=== PATIENT | male | born 1955 | race Hispanic/Latino ===

== ENCOUNTER 2017-11-23 14:05 | Inpatient (IN) | payer MEDICARE, OTHER ==
[2017-11-23 15:14] LABS: Basophils % (Auto) 0.2 % (0.0-1.8); Eosinophils % (Auto) 0.2 % (0.0-4.3); Hematocrit 34.5 % (35.5-45.6); Hemoglobin 11.7 gm/dl (11.8-15.2); Lymphocytes # (Auto) 1.3 K/mm3 (1.2-5.4); Lymphocytes % (Auto) 7.2 % (13.4-35.0); Mean Corpuscular HGB Conc 34 % (32-34); Mean Corpuscular Hemoglobin 31 pg (28-32); Mean Corpuscular Volume 91 fl (84-94); Monocytes % (Auto) 5.5 % (0.0-7.3); Platelet Count 384 K/mm3 (140-440); Red Blood Count 3.81 M/mm3 (3.65-5.03); Red Cell Distribution Width 13.8 % (13.2-15.2)
[2017-11-23 15:27] LABS: BUN/Creatinine Ratio 13; Blood Urea Nitrogen 9 mg/dL (9-20); Calcium 8.7 mg/dL (8.4-10.2); Hemolysis Index 99
[2017-11-23] MEDS ORDERED: NACL 0.9% 500 ML 500 ML IV ONE (16:44)
[2017-11-23] MEDS ORDERED: DUONEB *Not for PRN Use IH ONE (16:44)
[2017-11-23] MEDS ORDERED: TORADOL IV ONE (16:54)
--- NOTE | 2017-11-23 16:56 | Emergency Department Report ---
ED Extremity Problem HPI - General Chief complaint: Extremity Injury, Lower Stated complaint: RT FOOT SWOLLEN Time Seen by Provider: 11/23/17 16:26 Source: patient, EMS Mode of arrival: Stretcher Limitations: No Limitations - History of Present Illness Initial comments: 62-year-old male with a past medical history of type 2 diabetes, peripheral neuropathy, hypertension, dyslipidemia, CAD with stent placement, CVA with residual left-sided deficit, and methamphetamine abuse presents to the hospital complains of right foot infection 1 month. Patient has been back and forth to the [place] for treatment. He states he has been on antibiotics and is supposed to receive additional antibiotics but he has not. He states they're planning to possibly amputate his toe. Patient denies fever. Pain is mild to moderate. Patient states he quit smoking 4 months ago but does have COPD. - Related Data Home Medications Medication Instructions Recorded Confirmed Last Taken Multivitamin with Minerals [One 1 tab PO QDAY 12/11/13 12/11/13 12/10/13 08:00 Daily] 1 tab Previous Rx's Medication Instructions Recorded Last Taken Type Aspirin [Aspirin TAB] 325 mg PO QDAY #30 tablet 05/06/16 Unknown Rx Carvedilol [Coreg] 3.125 mg PO BID #60 tablet 05/06/16 Unknown Rx Celecoxib [celeBREX] 100 mg PO BID #60 capsule 05/06/16 Unknown Rx Clopidogrel [Plavix] 75 mg PO QDAY #30 tablet 05/06/16 Unknown Rx HYDROcodone/APAP 5-325 [[place] 1 each PO Q6H PRN #30 tablet 05/06/16 Unknown Rx 5-325 mg TAB] Insulin NPH/Regular [NovoLIN 70/30] 20 units SUB-Q BID #100 units 05/06/16 Unknown Rx Venlafaxine Xr [Effexor XR] 150 mg PO QDAY #30 capsule 05/06/16 Unknown Rx metFORMIN [Glucophage] 1,000 mg PO BID #60 tablet 05/06/16 Unknown Rx oxyCODONE ER [OxyCONTIN ER TAB] 10 mg PO Q12HR #14 tablet 05/06/16 Unknown Rx Allergies Allergy/AdvReac Type Severity Reaction Status Date / Time No Known Allergies Allergy Unverified 12/11/13 07:25 ED Review of Systems ROS: Stated complaint: RT FOOT SWOLLEN Other details as noted in HPI Comment: All other systems reviewed and negative Other: Constitutional: No fevers chills Eyes: No eye pain visual changes or discharge ENT: No ear pain or throat pain Neck: Denies pain Respiratory: Denies cough wheezing shortness of breath Cardiovascular: Denies chest pain, palpitations, syncope GI: Denies abdominal pain, nausea, vomiting, diarrhea : Denies dysuria Musculoskeletal: As per HPI Skin: Denies rash, lesions, erythema Neurologic: Denies headache, numbness, weakness Psychiatric: Denies suicidal ideation, hallucinations ED Past Medical Hx - Past Medical History Hx Hypertension: Yes Hx CVA: Yes (1995, 12/22 with Left side deficit) Hx Heart Attack/AMI: Yes (1990 ) Hx Congestive Heart Failure: No Hx Diabetes: Yes Hx Seizures: Yes (Currently not on any meds. Last sz 1 month ago) Hx Asthma: Yes (Hasn't used inhaler in "years") Hx COPD: Yes Hx HIV: No Additional medical history: Coronary artery disease - Surgical History Hx Coronary Stent: Yes ((6)) Additional Surgical History: neck mass surgery. Right foot amputation of second and fifth toe. - Social History Smoking Status: Former Smoker Substance Use Type: None - Medications Home Medications: Home Medications Medication Instructions Recorded Confirmed Last Taken Type Multivitamin with Minerals [One 1 tab PO QDAY 12/11/13 12/11/13 12/10/13 08:00 History Daily] 1 tab Aspirin [Aspirin TAB] 325 mg PO QDAY #30 tablet 05/06/16 Unknown Rx Carvedilol [Coreg] 3.125 mg PO BID #60 tablet 05/06/16 Unknown Rx Celecoxib [celeBREX] 100 mg PO BID #60 capsule 05/06/16 Unknown Rx Clopidogrel [Plavix] 75 mg PO QDAY #30 tablet 05/06/16 Unknown Rx HYDROcodone/APAP 5-325 [[place] 1 each PO Q6H PRN #30 tablet 05/06/16 Unknown Rx 5-325 mg TAB] Insulin NPH/Regular [NovoLIN 70/30] 20 units SUB-Q BID #100 units 05/06/16 Unknown Rx Venlafaxine Xr [Effexor XR] 150 mg PO QDAY #30 capsule 05/06/16 Unknown Rx metFORMIN [Glucophage] 1,000 mg PO BID #60 tablet 05/06/16 Unknown Rx oxyCODONE ER [OxyCONTIN ER TAB] 10 mg PO Q12HR #14 tablet 05/06/16 Unknown Rx ED Physical Exam - General Limitations: No Limitations - Other Other exam information: General: No limitations, patient is alert in no acute distress Head exam: Atraumatic, normocephalic Eyes exam: Normal appearance ENT: Moist mucous membrane, normal oropharynx Neck exam: Normal inspection, full range of motion, no meningismus nontender Respiratory exam: Mild tachypnea Cardiovascular: Normal rate and rhythm, normal heart sounds Abdomen: Soft, nondistended, and nontender, with normal bowel sounds, no rebound, or guarding Extremity: Left leg amputation of second and fifth toe. Right foot with erythema of the great toe extension to the dorsal surface of the foot. Mild tenderness to palpation. Mild swelling. Unable to palpate right DP pulse but able to auscultate faintly with Doppler Back: Normal Inspection, full range of motion, no tenderness Neurologic: Alert, oriented x3, cranial nerves intact, equal hand account development specialist, weakness in the left leg compared to the right. Psychiatric: normal affect, normal mood Skin: Warm, dry, intact ED Course Vital Signs 11/23/17 11/23/17 11/23/17 14:20 14:27 14:30 Temperature 98.3 F Pulse Rate 108 H 105 H Respiratory 20 26 H Rate Blood Pressure 104/69 99/71 O2 Sat by Pulse 99 99 98 Oximetry ED Medical Decision Making - Lab Data Result diagrams: 11/23/17 14:53 11/23/17 14:53 Lab Results 11/23/17 11/23/17 Range/Units 14:53 14:53 WBC 18.3 H (4.5-11.0) K/mm3 RBC 3.81 (3.65-5.03) M/mm3 Hgb 11.7 L (11.8-15.2) gm/dl Hct 34.5 L (35.5-45.6) % MCV 91 (84-94) fl MCH 31 (28-32) pg MCHC 34 (32-34) % RDW 13.8 (13.2-15.2) % Plt Count 384 (140-440) K/mm3 Lymph % (Auto) 7.2 L (13.4-35.0) % [place] % (Auto) 5.5 (0.0-7.3) % Eos % (Auto) 0.2 (0.0-4.3) % Baso % (Auto) 0.2 (0.0-1.8) % Lymph # 1.3 (1.2-5.4) K/mm3 [place] # 1.0 H (0.0-0.8) K/mm3 Eos # 0.0 (0.0-0.4) K/mm3 Baso # 0.0 (0.0-0.1) K/mm3 Seg Neutrophils % 86.9 H (40.0-70.0) % Seg Neutrophils # 15.9 H (1.8-7.7) K/mm3 Sodium 135 L (137-145) mmol/L Potassium 4.7 (3.6-5.0) mmol/L Chloride 92.4 L (98-107) mmol/L Carbon Dioxide 26 (22-30) mmol/L Anion Gap 21 mmol/L BUN 9 (9-20) mg/dL Creatinine 0.7 L (0.8-1.5) mg/dL Estimated GFR > 60 ml/min BUN/Creatinine Ratio 13 % Glucose 221 H (75-100) mg/dL Calcium 8.7 (8.4-10.2) mg/dL - Medical Decision Making Left extremity erythema Positive infection Elevated WBC count ESR pending. returned elevated suggesting possiblity of osteomyelitis Given history of MRSA and possible osteo vancomycin UDS pending given previous history of methamphetamine abuse Mild tachypnea COPD suspected Dual neb initiated - Differential Diagnosis cellulitis, osteomyelitis, PAD Critical Care Time: No Critical care attestation.: If time is entered above; I have spent that time in minutes in the direct care of this critically ill patient, excluding procedure time. ED Disposition Clinical Impression: Cellulitis of right foot, Diabetes type 2, uncontrolled, COPD (chronic obstructive pulmonary disease), Elevated erythrocyte sedimentation rate Disposition: OP ADMIT IP TO THIS HOSP Is pt being admited?: Yes Condition: Stable Time of Disposition: 17:01 (Dr Correa/hosp)
[2017-11-23] MEDS ORDERED: VANCOMYCIN/NS 1 GM/250 ML 1 GM/250 ML BAG IV SCH (17:00)
--- NOTE | 2017-11-23 17:52 | History and Physical Report ---
History of Present Illness Chief complaint: My foot is red and it hurts, and im hungry History of present illness: 62 YO Male with DM, Diabetic Neuropathy, HTN, HLD, CAD S/P Stent Placement, CVA with LHP, Methamphetamine Dependence presents to ED for evaluation. Pt states that he has experienced pain in his right foot for the past 1 month. Patient has received both inpatient and outpatient care at the [facility] over the past month. Pt acknowledges worsening pain and redness to the right foot over the past 3 days. Pt states that he is unable to bear weight on his right foot. Pt states that he was prescribed antibiotics but did not receive them. Pt acknowledges subjective fever, but denies chills, CP, Palpitations, NVD, syncope , trauma, recent ill contacts, leg swelling, calf pain, hemoptysis, prolonged immobility, individual/family history of DVT/PE. Pt seen and evaluated in ED and found to have sepsis, and diabetic foot infection, as well and hypotension and tachycardia. Pt initiated on sepsis protocol, and admitted to medical floor. Past History Past Medical History: acute AL, CAD, COPD, diabetes, hypertension, seizures, stroke Past Surgical History: Other (Right Foot surgery, Stent Placement, ) Social history: , lives with family. denies: alcohol abuse Family history: diabetes, hypertension Medications and Allergies Allergies Allergy/AdvReac Type Severity Reaction Status Date / Time No Known Allergies Allergy Unverified 12/11/13 07:25 Home Medications Medication Instructions Recorded Confirmed Last Taken Type Multivitamin with Minerals [One 1 tab PO QDAY 12/11/13 12/11/13 12/10/13 08:00 History Daily] 1 tab Aspirin [Aspirin TAB] 325 mg PO QDAY #30 tablet 05/06/16 Unknown Rx Carvedilol [Coreg] 3.125 mg PO BID #60 tablet 05/06/16 Unknown Rx Celecoxib [celeBREX] 100 mg PO BID #60 capsule 05/06/16 Unknown Rx Clopidogrel [Plavix] 75 mg PO QDAY #30 tablet 05/06/16 Unknown Rx HYDROcodone/APAP 5-325 [[place] 1 each PO Q6H PRN #30 tablet 05/06/16 Unknown Rx 5-325 mg TAB] Insulin NPH/Regular [NovoLIN 70/30] 20 units SUB-Q BID #100 units 05/06/16 Unknown Rx Venlafaxine Xr [Effexor XR] 150 mg PO QDAY #30 capsule 05/06/16 Unknown Rx metFORMIN [Glucophage] 1,000 mg PO BID #60 tablet 05/06/16 Unknown Rx oxyCODONE ER [OxyCONTIN ER TAB] 10 mg PO Q12HR #14 tablet 05/06/16 Unknown Rx Active Meds: Active Medications Vancomycin HCl (Vancomycin/0.45 Ns 1 Gm/250 Ml) 1 gm in 250 mls @ 167.007 mls/ hr IV ONCE INOCENCIA Review of Systems Constitutional: fever, no weight loss, no weight gain Ears, nose, mouth and throat: no ear pain, no ear discharge, no tinnitis, no decreased hearing, no nose pain Cardiovascular: no chest pain, no orthopnea, no palpitations, no rapid/ irregular heart beat, no edema Respiratory: no cough, no cough with sputum, no excessive sputum, no hemoptysis Gastrointestinal: no nausea, no vomiting, no diarrhea, no constipation Genitourinary Male: no flank pain, no discharge, no urinary frequency, no urinary hesitancy, no nocturia Rectal: no pain, no incontinence, no bleeding Musculoskeletal: no neck stiffness, no neck pain, no shooting arm pain, no arm numbness/tingling, no low back pain, no shooting leg pain Integumentary: rash, redness Neurological: no head injury, no transient paralysis, no paralysis, no weakness , no parathesias, no numbness Psychiatric: no sleep disturbances, no insomnia, no hypersomnia, no change in appetite, no change in libido Endocrine: no cold intolerance, no heat intolerance, no polyphagia, no excessive thirst, no polydipsia, no polyuria, no nocturia Hematologic/Lymphatic: no easy bruising, no easy bleeding, no lymphadenopathy, no lymphedema Allergic/Immunologic: no urticaria, no allergic rhinitis, no wheezing, no persistent infections, no anaphylaxis, no angioedema Exam - Constitutional Vitals: Temp Pulse Resp BP Pulse Ox 98.3 F 105 H 26 H 99/71 98 11/23/17 14:27 11/23/17 14:30 11/23/17 14:30 11/23/17 14:30 11/23/17 14:30 General appearance: Present: mild distress, disheveled - EENT Eyes: Present: PERRL ENT: hearing intact, clear oral mucosa - Neck Neck: Present: supple, normal ROM - Respiratory Respiratory effort: normal Respiratory: bilateral: CTA - Cardiovascular Heart Sounds: Present: S1 & S2. Absent: rub, click - Extremities Extremity abnormal: edema, erythema, black, pulses diminished Peripheral Pulses: abnormal - Abdominal General gastrointestinal: Present: soft, non-tender, non-distended, normal bowel sounds Male genitourinary: Present: normal - Integumentary Integumentary: Present: clear, warm, dry - Musculoskeletal Musculoskeletal: gait normal, strength equal bilaterally - Psychiatric Psychiatric: appropriate mood/affect, intact judgment & insight - Neurologic Neurologic: CNII-XII intact, moves all extremities Results - Labs CBC & Chem 7: 11/23/17 14:53 11/23/17 14:53 Labs: Abnormal lab results 11/23/17 11/23/17 Range/Units 14:53 14:53 WBC 18.3 H (4.5-11.0) K/mm3 Hgb 11.7 L (11.8-15.2) gm/dl Hct 34.5 L (35.5-45.6) % Lymph % (Auto) 7.2 L (13.4-35.0) % [place] # 1.0 H (0.0-0.8) K/mm3 Seg Neutrophils % 86.9 H (40.0-70.0) % Seg Neutrophils # 15.9 H (1.8-7.7) K/mm3 Sodium 135 L (137-145) mmol/L Chloride 92.4 L (98-107) mmol/L Creatinine 0.7 L (0.8-1.5) mg/dL Glucose 221 H (75-100) mg/dL Assessment and Plan - Patient Problems (1) Sepsis Current Visit: Yes Status: Acute Qualifiers: Sepsis type: sepsis due to unspecified organism Qualified Code(s): A41.9 - Sepsis, unspecified organism Plan to address problem: IV antibiotic therapy, blood cultures, Chest X ray, urinalysis, serial lactic acid levels, monitor urine output q shift, (2) CAD (coronary artery disease) Current Visit: Yes Status: Acute Qualifiers: Coronary Disease-Associated Artery/Lesion type: [place] artery [place] vs. transplanted heart: [place] heart Associated angina: without angina Qualified Code(s): I25.10 - Atherosclerotic heart disease of [place] coronary artery without angina pectoris Plan to address problem: Statin therapy, low cholesterol diet, (3) COPD (chronic obstructive pulmonary disease) Current Visit: Yes Status: Acute Qualifiers: COPD type: emphysema Plan to address problem: supplemental oxygen, nebulizer therapy, NIPPV as clinically indicated. (4) Methamphetamine dependence Current Visit: Yes Status: Acute Plan to address problem: Supportive care, Pt counseled. (5) Cellulitis of right foot Current Visit: Yes Status: Acute Plan to address problem: IV abx, IVF, supportive care. (6) DVT prophylaxis Current Visit: Yes Status: Acute
[2017-11-23] MEDS ORDERED: NACL 0.9% 1000 ML IV ONE (17:56)
[2017-11-23] MEDS ORDERED: TYLENOL PO PRN (17:56)
[2017-11-23] MEDS ORDERED: VANCOMYCIN VIAL IV ONE (17:56)
[2017-11-23] MEDS ORDERED: PROVENTIL IH PRN (17:56)
[2017-11-23] MEDS ORDERED: ZOFRAN IV PRN (17:56)
[2017-11-23] MEDS ORDERED: VANCOMYCIN/0.45 NS 1 GM/250 ML 1 GM/250 ML BAG IV SCH (18:00)
[2017-11-23] MEDS ORDERED: VANCOMYCIN PHARMACY TO DOSE IV SCH (18:00)
[2017-11-23] MEDS ORDERED: D50W (25GM) Syringe IV PRN (18:05)
[2017-11-23] MEDS ORDERED: VANCOMYCIN 1,500 MG in NACL 0.9% 500 ML 500 ML IV ONE (18:30)
[2017-11-23] MEDS ORDERED: NACL 0.9% 1000 ML 2,000 ML ONE (21:36)
[2017-11-24] MEDS: COREG PO SCH ×3 (00:15→22:19)
[2017-11-24] MEDS: OxyCONTIN PO SCH ×3 (00:20→22:16)
[2017-11-24] MEDS: PEPCID PO SCH ×3 (00:20→22:16)
[2017-11-24] MEDS ORDERED: NOVOLOG SUB-Q ONE (02:40)
[2017-11-24] MEDS: NOVOLOG SUB-Q SCH ×4 (02:57→17:28)
[2017-11-24] MEDS: ZOSYN/NS 4.5GM/100ML 4.5 GM/100 ML VIAL IV SCH ×4 (06:41→23:57)
[2017-11-24] MEDS ORDERED: MULTIVITAMIN WITH MINERALS PO SCH (10:00)
[2017-11-24] MEDS: PLAVIX PO SCH (10:06)
[2017-11-24] MEDS: THERAGRAN-M Tab PO SCH (10:06)
[2017-11-24] MEDS: ASPIRIN PO SCH (10:06)
[2017-11-24] MEDS: VANCOMYCIN/0.45 NS 1 GM/250 ML 1 GM/250 ML BAG IV SCH ×2 (10:34→22:04)
[2017-11-24 12:20] LABS: Bilirubin,Urine NEG (Negative); Blood,Urine NEG (Negative); Color,Urine Yellow (Yellow); Mucus,Urine FEW /HPF
[2017-11-24 12:34] LABS: Benzodiazepines Screen,Urine PRESUMPTIVE NEGATIVE; Cannabinoid Screen,Urine PRESUMPTIVE NEGATIVE; Cocaine Screen,Urine PRESUMPTIVE NEGATIVE; Methadone Screen,Urine PRESUMPTIVE NEGATIVE; Opiate Screen,Urine PRESUMPTIVE NEGATIVE
--- NOTE | 2017-11-24 12:39 | Consultation ---
<DEAN COX - Last Filed: 11/24/17 15:07> History of Present Illness - Reason for Consult Consult date: 11/24/17 Cellulitis Requesting physician: ROSALINE BATISTA - History of Present Illness 62 YO Male with DM, Diabetic Neuropathy, HTN, HLD, CAD S/P Stent Placement, CVA with LHP, Methamphetamine Dependence presents to ED for evaluation c/o severe right foot for the past 1 month. Patient stated that [facility] and was supposed to go back for some type of procedure and he never went back stated that he finished all his antibiotics and then start having severe right foot pain with redness and swelling. Pt states that he is not able to bear weight on his right foot. Pt states that about 2 years ago he had this same problem with his left foot and his 2nd and 5th toes were amputated. In the ED, initial temperature was 98.3, HR 108, Res 20, O2 Sat 99%, Bp 104/69 , WBC 18.3, Hgb 11.7 Plt 384, Cr 0.7, lactic acid 4.30. Microbiology: Blood cultures: 11/23 in progress Current Antimicrobials: Zosyn 11/23 Vancomycin 11/23 Previous Antimicrobials: Past History Past Medical History: acute [place], CAD, COPD, diabetes, hypertension, seizures, stroke Past Surgical History: Other (Right Foot surgery, Stent Placement, ) Social history: , lives with family. denies: alcohol abuse Family history: diabetes, hypertension Medications and Allergies Allergies Allergy/AdvReac Type Severity Reaction Status Date / Time No Known Allergies Allergy Unverified 12/11/13 07:25 Home Medications Medication Instructions Recorded Confirmed Last Taken Type Aspirin [Aspirin TAB] 325 mg PO QDAY #30 tablet 05/06/16 11/23/17 Unknown Rx Carvedilol [Coreg] 3.125 mg PO BID #60 tablet 05/06/16 11/23/17 Unknown Rx Celecoxib [celeBREX] 100 mg PO BID #60 capsule 05/06/16 11/23/17 Unknown Rx Clopidogrel [Plavix] 75 mg PO QDAY #30 tablet 05/06/16 11/23/17 Unknown Rx HYDROcodone/APAP 5-325 [[place] 1 each PO Q6H PRN #30 tablet 05/06/16 11/23/17 Unknown Rx 5-325 mg TAB] Insulin NPH/Regular [NovoLIN 70/30] 20 units SUB-Q BID #100 units 05/06/1611/23 Unknown Rx Venlafaxine Xr [Effexor XR] 150 mg PO QDAY #30 capsule 05/06/16 11/23/17 Unknown Rx metFORMIN [Glucophage] 1,000 mg PO BID #60 tablet 05/06/16 11/23/17 Unknown Rx oxyCODONE ER [OxyCONTIN ER TAB] 10 mg PO Q12HR #14 tablet 05/06/16 11/23/17 Unknown Rx Active Meds: Active Medications Acetaminophen (Tylenol) 650 mg PO Q4H PRN PRN Reason: Pain MILD(1-3)/Fever >100.5/MALONE Acetaminophen/Hydrocodone Bitart ([place] 5/325) 1 each PO Q6H PRN PRN Reason: Pain, Moderate (4-6) Albuterol (Proventil) 2.5 mg IH Q4HRT PRN PRN Reason: Shortness Of Breath Aspirin (Aspirin) 325 mg PO QDAY [facility] Last Admin: 11/24/17 10:06 Dose: 325 mg Carvedilol (Coreg) 3.125 mg PO BID [facility] Last Admin: 11/24/17 10:44 Dose: Not Given Celecoxib (Celebrex) 100 mg PO BID [facility] Last Admin: 11/24/17 10:33 Dose: 100 mg Clopidogrel Bisulfate (Plavix) 75 mg PO QDAY [facility] Last Admin: 11/24/17 10:06 Dose: 75 mg Dextrose (D50w (25gm) Syringe) 50 ml IV PRN PRN PRN Reason: Hypoglycemia Famotidine (Pepcid) 20 mg PO BID [facility] Last Admin: 11/24/17 10:06 Dose: 20 mg Piperacillin Sod/Tazobactam Sod (Zosyn/Ns 4.5gm/100ml) 4.5 gm in 100 mls @ 200 mls/hr IV Q8HR [facility] PRN Reason: Protocol Last Admin: 11/24/17 06:42 Dose: 100 mls/hr Vancomycin HCl (Vancomycin/0.45 Ns 1 Gm/250 Ml) 1 gm in 250 mls @ 167.007 mls/ hr IV Q12H [facility] Last Admin: 11/24/17 10:34 Dose: 167.007 mls/hr Insulin Aspart (Novolog) 0 units SUB-Q ACHS [facility] PRN Reason: Protocol Last Admin: 11/24/17 12:07 Dose: 2 units Insulin Human Isoph/Insulin Regular (Novolin 70/30) 20 unit SUB-Q BID [facility] Last Admin: 11/24/17 09:23 Dose: 20 unit Multivitamins/Minerals (Theragran-M Tab) 1 each PO QDAY [facility] Last Admin: 11/24/17 10:06 Dose: 1 each Ondansetron HCl (Zofran) 4 mg IV Q8H PRN PRN Reason: N/V unrelieved by Reglan Oxycodone HCl (Oxycontin) 10 mg PO Q12HR [facility] Last Admin: 11/24/17 10:05 Dose: 10 mg Venlafaxine HCl (Effexor Xr) 150 mg PO QDAY [facility] Physical Examination - Physical Exam Narrative exam: General appearance: Alert in NAD, conversant Eyes: anicteric sclerae, moist conjunctivae; no lid-lag; PERRLA HENT: Atraumatic; oropharynx clear Neck: Trachea midline; supple, no thyromegaly or lymphadenopathy Lungs: CTAB CV: RRR S1 S2 Abdomen: firm and tense + RUQ tenderness; +hepatosplenomegaly Extremities: Right foot with erythema of the great toe extension to the dorsal surface of the foot with tenderness to palpation. Mild swelling. 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 Moving all extermities Lines: No CVL / PICC - Constitutional Vitals: Vital Signs Temp Pulse Resp BP Pulse Ox 98.7 F 86 20 92/53 95 11/24/17 08:00 11/24/17 08:00 11/24/17 08:00 11/24/17 08:00 11/24/17 08:46 Temperature -Last 24 Hours Temperature 98.7 F Temperature 99.8 F Temperature 98.3 F Results - Labs CBC & Chem 7: 11/23/17 14:53 11/23/17 14:53 Labs: Abnormal lab results 11/23/17 11/23/17 11/23/17 Range/Units 14:53 14:53 21:01 WBC 18.3 H (4.5-11.0) K/mm3 Hgb 11.7 L (11.8-15.2) gm/dl Hct 34.5 L (35.5-45.6) % Lymph % (Auto) 7.2 L (13.4-35.0) % Morrow # 1.0 H (0.0-0.8) K/mm3 Seg Neutrophils % 86.9 H (40.0-70.0) % Seg Neutrophils # 15.9 H (1.8-7.7) K/mm3 Sodium 135 L (137-145) mmol/L Chloride 92.4 L (98-107) mmol/L Creatinine 0.7 L (0.8-1.5) mg/dL Glucose 221 H (75-100) mg/dL POC Glucose (70-105) Lactic Acid 3.90 H* (0.7-2.0) mmol/L Urine WBC (Auto) (0.0-6.0) /HPF 11/23/17 11/24/17 11/24/17 Range/Units 23:37 00:45 00:56 WBC (4.5-11.0) K/mm3 Hgb (11.8-15.2) gm/dl Hct (35.5-45.6) % Lymph % (Auto) (13.4-35.0) % [place]row # (0.0-0.8) K/mm3 Seg Neutrophils % (40.0-70.0) % Seg Neutrophils # (1.8-7.7) K/mm3 Sodium (137-145) mmol/L Chloride (98-107) mmol/L Creatinine (0.8-1.5) mg/dL Glucose (75-100) mg/dL POC Glucose 405 H (70-105) Lactic Acid 4.30 H* 2.80 H* (0.7-2.0) mmol/L Urine WBC (Auto) (0.0-6.0) /HPF 11/24/17 11/24/17 11/24/17 Range/Units 04:47 08:31 11:23 WBC (4.5-11.0) K/mm3 Hgb (11.8-15.2) gm/dl Hct (35.5-45.6) % Lymph % (Auto) (13.4-35.0) % [place] # (0.0-0.8) K/mm3 Seg Neutrophils % (40.0-70.0) % Seg Neutrophils # (1.8-7.7) K/mm3 Sodium (137-145) mmol/L Chloride (98-107) mmol/L Creatinine (0.8-1.5) mg/dL Glucose (75-100) mg/dL POC Glucose 115 H 174 H (70-105) Lactic Acid (0.7-2.0) mmol/L Urine WBC (Auto) 9.0 H (0.0-6.0) /HPF Assessment and Plan Assessment: 1) Sepsis: Present on admission, manifested by tachycardia, hypotension, leukocytosis, increased lactate. Etiology most likely cellulitis of right foot 3) Cellulitis of the right foot: Most likely secondary to diabetic foot ulcer, should r/u osteomyelitis /abscess -Right foot with erythema of the great toe extension to the dorsal surface of the foot with tenderness to palpation and mild swelling. 3) Diabetes; uncontrolled 4) CAD 5) COPD 6) Acute [place] 7) hypertension 8) seizures, stroke Plan: -follow-up blood cultures -C-reactive protein (CRP) -continue zosyn and vanco for now -consult Dr. Bajwa -f/u on foot x-ray -obtain MRI of right great toe eval for osteo -obtain areterial doppler of right lower extremity Thank you Dr. Batista for your consultation, will follow up with you. Dean Cox NP for Dr. Nicci Vera MD Infectious Diseases Specialist [facility] ([facility]) M [phone] O [phone] <NICCI SAWYER - Last Filed: 11/24/17 16:54> Medications and Allergies Active Meds: Active Medications Acetaminophen (Tylenol) 650 mg PO Q4H PRN PRN Reason: Pain MILD(1-3)/Fever >100.5/MALONE Acetaminophen/Hydrocodone Bitart ([place] 5/325) 1 each PO Q6H PRN PRN Reason: Pain, Moderate (4-6) Last Admin: 11/24/17 15:12 Dose: 1 each Albuterol (Proventil) 2.5 mg IH Q4HRT PRN PRN Reason: Shortness Of Breath Aspirin (Aspirin) 325 mg PO QDAY [facility] Last Admin: 11/24/17 10:06 Dose: 325 mg Carvedilol (Coreg) 3.125 mg PO BID [facility] Last Admin: 11/24/17 10:44 Dose: Not Given Celecoxib (Celebrex) 100 mg PO BID [facility] Last Admin: 11/24/17 10:33 Dose: 100 mg Clopidogrel Bisulfate (Plavix) 75 mg PO QDAY [facility] Last Admin: 11/24/17 10:06 Dose: 75 mg Dextrose (D50w (25gm) Syringe) 50 ml IV PRN PRN PRN Reason: Hypoglycemia Famotidine (Pepcid) 20 mg PO BID [facility] Last Admin: 11/24/17 10:06 Dose: 20 mg Piperacillin Sod/Tazobactam Sod (Zosyn/Ns 4.5gm/100ml) 4.5 gm in 100 mls @ 200 mls/hr IV Q8HR [facility] PRN Reason: Protocol Last Admin: 11/24/17 16:32 Dose: 100 mls/hr Vancomycin HCl (Vancomycin/0.45 Ns 1 Gm/250 Ml) 1 gm in 250 mls @ 167.007 mls/ hr IV Q12H [facility] Last Admin: 11/24/17 10:34 Dose: 167.007 mls/hr Insulin Aspart (Novolog) 0 units SUB-Q ACHS [facility] PRN Reason: Protocol Last Admin: 11/24/17 12:07 Dose: 2 units Insulin Human Isoph/Insulin Regular (Novolin 70/30) 15 unit SUB-Q BIDDIAB [facility] Multivitamins/Minerals (Theragran-M Tab) 1 each PO QDAY [facility] Last Admin: 11/24/17 10:06 Dose: 1 each Ondansetron HCl (Zofran) 4 mg IV Q8H PRN PRN Reason: N/V unrelieved by Reglan Oxycodone HCl (Oxycontin) 10 mg PO Q12HR [facility] Last Admin: 11/24/17 10:05 Dose: 10 mg Venlafaxine HCl (Effexor Xr) 150 mg PO QDAY [facility] Last Admin: 11/24/17 15:12 Dose: 150 mg Physical Examination - Constitutional Vitals: Vital Signs Temp Pulse Resp BP Pulse Ox 98.2 F 72 16 91/55 98 11/24/17 15:02 11/24/17 15:02 11/24/17 15:02 11/24/17 15:02 11/24/17 15:02 Temperature -Last 24 Hours Temperature 98.2 F Temperature 98.7 F Temperature 99.8 F Results - Labs CBC & Chem 7: 11/23/17 14:53 11/23/17 14:53 Labs: Abnormal lab results 11/23/17 11/23/17 11/24/17 Range/Units 21:01 23:37 00:45 POC Glucose 405 H (70-105) Lactic Acid 3.90 H* 4.30 H* (0.7-2.0) mmol/L Urine WBC (Auto) (0.0-6.0) /HPF 11/24/17 11/24/17 11/24/17 Range/Units 00:56 04:47 08:31 POC Glucose 115 H (70-105) Lactic Acid 2.80 H* (0.7-2.0) mmol/L Urine WBC (Auto) 9.0 H (0.0-6.0) /HPF 11/24/17 11/24/17 Range/Units 11:23 16:23 POC Glucose 174 H 69 L (70-105) Lactic Acid (0.7-2.0) mmol/L Urine WBC (Auto) (0.0-6.0) /HPF Assessment and Plan I have personally interviewed and examined patient. I personally discussed and directed assessment and management with MANAGER COMPLIANCE Bridgeru. Patient 's case was discussed with Dr. Bajwa and will request MRI of the food, arterial Doppler and start on broad-spectrum antibiotics. Thank you for consultation
--- NOTE | 2017-11-24 12:42 | Progress Note ---
<LAKEISHA ZAVALA - Last Filed: 11/24/17 15:26> Assessment and Plan Assessment and plan: 62 YO Male with DM, Diabetic Neuropathy, HTN, HLD, CAD S/P Stent Placement, CVA with LHP, Methamphetamine Dependence presents to ED for evaluation. Pt states that he has experienced pain in his right foot for the past 1 month. Sepsis Likely secondary to Cellulitis continue IV antibiotic therapy, follow blood cultures urinalysis UTI Order urine culture, continue antibiotics CAD (coronary artery disease) Continue Statin therapy, low cholesterol diet, COPD (chronic obstructive pulmonary disease) supplemental oxygen, nebulizer therapy, NIPPV as clinically indicated. Methamphetamine dependence Supportive care, Pt counseled on cessation Cellulitis of right foot IV abx, IVF, supportive care Ordered x-ray General surgery and ID consulted DVT prophylaxis SCDs History Interval history: Patient seen and examined. He denies chest pain, shortness of breath, nausea vomiting. His only complaint is that of right foot pain. Labs and nursing notes reviewed Hospitalist Physical - Constitutional Vitals: Temp Pulse Resp BP Pulse Ox 98.7 F 86 20 92/53 95 11/24/17 08:00 11/24/17 08:00 11/24/17 08:00 11/24/17 08:00 11/24/17 08:46 General appearance: Present: no acute distress, disheveled, malodorous - EENT Eyes: Present: PERRL, EOM intact ENT: hearing intact, clear oral mucosa - Neck Neck: Present: supple, normal ROM - Respiratory Respiratory effort: normal Respiratory: bilateral: CTA - Cardiovascular Rhythm: regular Heart Sounds: Present: S1 & S2 - Extremities Extremities: Full ROM Extremity abnormal: edema (mild bilaterally right greater than left ), erythema (right foot), black (great toe), pulses diminished, other (Left foot amputation of second and fifth toe) Peripheral Pulses: abnormal - Abdominal General gastrointestinal: soft, non-tender, non-distended - Integumentary Integumentary: Present: warm, dry - Psychiatric Psychiatric: appropriate mood/affect, cooperative - Neurologic Neurologic: CNII-XII intact, moves all extremities - Allied Health Allied health notes reviewed: nursing Results - Labs CBC & Chem 7: 11/23/17 14:53 11/23/17 14:53 Labs: Laboratory Last Values WBC 18.3 K/mm3 (4.5-11.0) H 02/13/18 14:53 RBC 3.81 M/mm3 (3.65-5.03) 11/23/17 14:53 Hgb 11.7 gm/dl (11.8-15.2) L 11/23/17 14:53 Hct 34.5 % (35.5-45.6) L 11/23/17 14:53 MCV 91 fl (84-94) 11/23/17 14:53 MCH 31 pg (28-32) 11/23/17 14:53 MCHC 34 % (32-34) 11/23/17 14:53 RDW 13.8 % (13.2-15.2) 11/23/17 14:53 Plt Count 384 K/mm3 (140-440) 11/23/17 14:53 Lymph % (Auto) 7.2 % (13.4-35.0) L 11/23/17 14:53 [place] % (Auto) 5.5 % (0.0-7.3) 11/23/17 14:53 Eos % (Auto) 0.2 % (0.0-4.3) 11/23/17 14:53 Baso % (Auto) 0.2 % (0.0-1.8) 11/23/17 14:53 Lymph # 1.3 K/mm3 (1.2-5.4) 11/23/17 14:53 [place] # 1.0 K/mm3 (0.0-0.8) H 11/23/17 14:53 Eos # 0.0 K/mm3 (0.0-0.4) 11/23/17 14:53 Baso # 0.0 K/mm3 (0.0-0.1) 11/23/17 14:53 Seg Neutrophils % 86.9 % (40.0-70.0) H 11/23/17 14:53 Seg Neutrophils # 15.9 K/mm3 (1.8-7.7) H 11/23/17 14:53 ESR > 140.0 mm/Hr (0-20) 11/23/17 14:53 Sodium 135 mmol/L (137-145) L 11/23/17 14:53 Potassium 4.7 mmol/L (3.6-5.0) 11/23/17 14:53 Chloride 92.4 mmol/L (98-107) L 11/23/17 14:53 Carbon Dioxide 26 mmol/L (22-30) 11/23/17 14:53 Anion Gap 21 mmol/L 11/23/17 14:53 BUN 9 mg/dL (9-20) 11/23/17 14:53 Creatinine 0.7 mg/dL (0.8-1.5) L 11/23/17 14:53 Estimated GFR > 60 ml/min 11/23/17 14:53 BUN/Creatinine Ratio 13 % 11/23/17 14:53 Glucose 221 mg/dL (75-100) H 11/23/17 14:53 POC Glucose 174 (70-105) H 11/24/17 11:23 Lactic Acid 1.30 mmol/L (0.7-2.0) 11/24/17 02:35 Calcium 8.7 mg/dL (8.4-10.2) 11/23/17 14:53 Urine Color Yellow (Yellow) 11/24/17 04:47 Urine Turbidity Clear (Clear) 11/24/17 04:47 Urine pH 5.0 (5.0-7.0) 11/24/17 04:47 Ur Specific Timpson 1.026 (1.003-1.030) 11/24/17 04:47 Urine Protein 30 mg/dl mg/dL (Negative) 11/24/17 04:47 Urine Glucose (UA) 50 mg/dL (Negative) 11/24/17 04:47 Urine Ketones Neg mg/dL (Negative) 11/24/17 04:47 Urine Blood Neg (Negative) 11/24/17 04:47 Urine Nitrite Neg (Negative) 11/24/17 04:47 Urine Bilirubin Neg (Negative) 11/24/17 04:47 Urine Urobilinogen 4.0 mg/dL (<2.0) 11/24/17 04:47 Ur Leukocyte Esterase Tr (Negative) 11/24/17 04:47 Urine WBC (Auto) 9.0 /HPF (0.0-6.0) H 11/24/17 04:47 Urine RBC (Auto) 2.0 /HPF (0.0-6.0) 11/24/17 04:47 U Epithel Cells (Auto) < 1.0 /HPF (0-13.0) 11/24/17 04:47 Urine Mucus Few /HPF 11/24/17 04:47 Urine Opiates Screen Presumptive negative 11/24/17 04:46 Urine Methadone Screen Presumptive negative 11/24/17 04:46 Ur Barbiturates Screen Presumptive negative 11/24/17 04:46 Ur Phencyclidine Scrn Presumptive negative 11/24/17 04:46 U Benzodiazepines Scrn Presumptive negative 11/24/17 04:46 Urine Cocaine Screen Presumptive negative 11/24/17 04:46 U Marijuana (THC) Screen Presumptive negative 11/24/17 04:46 <ROSALINE WILEY E - Last Filed: 11/24/17 16:46> Assessment and Plan Assessment and plan: I saw and evaluated the patient. I agree with the findings and the plan of care as documented in the physician physical therapy assistant instructor ~note, with the following corrections and additions. Diabetes mellitus with uncontrolled blood sugar We'll decrease insulin to 15 units in the setting of hypo-glycemia Hospitalist Physical - Constitutional Vitals: Temp Pulse Resp BP Pulse Ox 98.2 F 72 16 91/55 98 11/24/17 15:02 11/24/17 15:02 11/24/17 15:02 11/24/17 15:02 11/24/17 15:02 Results - Labs CBC & Chem 7: 11/23/17 14:53 11/23/17 14:53 Labs: Laboratory Last Values WBC 18.3 K/mm3 (4.5-11.0) H 11/23/17 14:53 RBC 3.81 M/mm3 (3.65-5.03) 11/23/17 14:53 Hgb 11.7 gm/dl (11.8-15.2) L 11/23/17 14:53 Hct 34.5 % (35.5-45.6) L 11/23/17 14:53 MCV 91 fl (84-94) 11/23/17 14:53 MCH 31 pg (28-32) 11/23/17 14:53 MCHC 34 % (32-34) 11/23/17 14:53 RDW 13.8 % (13.2-15.2) 11/23/17 14:53 Plt Count 384 K/mm3 (140-440) 11/23/17 14:53 Lymph % (Auto) 7.2 % (13.4-35.0) L 11/23/17 14:53 [place] % (Auto) 5.5 % (0.0-7.3) 11/23/17 14:53 Eos % (Auto) 0.2 % (0.0-4.3) 11/23/17 14:53 Baso % (Auto) 0.2 % (0.0-1.8) 11/23/17 14:53 Lymph # 1.3 K/mm3 (1.2-5.4) 11/23/17 14:53 [place] # 1.0 K/mm3 (0.0-0.8) H 11/23/17 14:53 Eos # 0.0 K/mm3 (0.0-0.4) 11/23/17 14:53 Baso # 0.0 K/mm3 (0.0-0.1) 11/23/17 14:53 Seg Neutrophils % 86.9 % (40.0-70.0) H 11/23/17 14:53 Seg Neutrophils # 15.9 K/mm3 (1.8-7.7) H 11/23/17 14:53 ESR > 140.0 mm/Hr (0-20) 11/23/17 14:53 Sodium 135 mmol/L (137-145) L 11/23/17 14:53 Potassium 4.7 mmol/L (3.6-5.0) 11/23/17 14:53 Chloride 92.4 mmol/L (98-107) L 11/23/17 14:53 Carbon Dioxide 26 mmol/L (22-30) 11/23/17 14:53 Anion Gap 21 mmol/L 11/23/17 14:53 BUN 9 mg/dL (9-20) 11/23/17 14:53 Creatinine 0.7 mg/dL (0.8-1.5) L 11/23/17 14:53 Estimated GFR > 60 ml/min 11/23/17 14:53 BUN/Creatinine Ratio 13 % 11/23/17 14:53 Glucose 221 mg/dL (75-100) H 11/23/17 14:53 POC Glucose 69 (70-105) L 11/24/17 16:23 Lactic Acid 1.30 mmol/L (0.7-2.0) 11/24/17 02:35 Calcium 8.7 mg/dL (8.4-10.2) 11/23/17 14:53 Urine Color Yellow (Yellow) 11/24/17 04:47 Urine Turbidity Clear (Clear) 11/24/17 04:47 Urine pH 5.0 (5.0-7.0) 11/24/17 04:47 Ur Specific [place] 1.026 (1.003-1.030) 11/24/17 04:47 Urine Protein 30 mg/dl mg/dL (Negative) 11/24/17 04:47 Urine Glucose (UA) 50 mg/dL (Negative) 11/24/17 04:47 Urine Ketones Neg mg/dL (Negative) 11/24/17 04:47 Urine Blood Neg (Negative) 11/24/17 04:47 Urine Nitrite Neg (Negative) 11/24/17 04:47 Urine Bilirubin Neg (Negative) 11/24/17 04:47 Urine Urobilinogen 4.0 mg/dL (<2.0) 11/24/17 04:47 Ur Leukocyte Esterase Tr (Negative) 11/24/17 04:47 Urine WBC (Auto) 9.0 /HPF (0.0-6.0) H 11/24/17 04:47 Urine RBC (Auto) 2.0 /HPF (0.0-6.0) 11/24/17 04:47 U Epithel Cells (Auto) < 1.0 /HPF (0-13.0) 11/24/17 04:47 Urine Mucus Few /HPF 11/24/17 04:47 Urine Opiates Screen Presumptive negative 11/24/17 04:46 Urine Methadone Screen Presumptive negative 11/24/17 04:46 Ur Barbiturates Screen Presumptive negative 11/24/17 04:46 Ur Phencyclidine Scrn Presumptive negative 11/24/17 04:46 Ur Amphetamines Screen Presumptive positive 11/24/17 04:46 U Benzodiazepines Scrn Presumptive negative 11/24/17 04:46 Urine Cocaine Screen Presumptive negative 11/24/17 04:46 U Marijuana (THC) Screen Presumptive negative 11/24/17 04:46 Drugs of Abuse Note Disclamer 11/24/17 04:46
[2017-11-24 12:57] LABS: Amphetamine Screen,Urine PRESUMPTIVE POSITIVE
--- NOTE | 2017-11-24 14:59 | Consultation ---
History of Present Illness Consult date: 11/24/17 Reason for consult: other (Right great toe ulcer) - History of present illness History of present illness: 62 yo male diabetic with a 2 month h/o a ulcer of his right distal toe. Past History Past Medical History: acute ND, CAD, COPD, diabetes, hypertension, seizures, stroke Past Surgical History: Other (Right Foot surgery, Stent Placement, ) Social history: , lives with family. denies: alcohol abuse Family history: diabetes, hypertension Medications and Allergies Allergies Allergy/AdvReac Type Severity Reaction Status Date / Time No Known Allergies Allergy Unverified 12/11/13 07:25 Home Medications Medication Instructions Recorded Confirmed Last Taken Type Aspirin [Aspirin TAB] 325 mg PO QDAY #30 tablet 05/06/16 11/23/17 Unknown Rx Carvedilol [Coreg] 3.125 mg PO BID #60 tablet 05/06/16 11/23/17 Unknown Rx Celecoxib [celeBREX] 100 mg PO BID #60 capsule 05/06/16 11/23/17 Unknown Rx Clopidogrel [Plavix] 75 mg PO QDAY #30 tablet 05/06/16 11/23/17 Unknown Rx HYDROcodone/APAP 5-325 [[place] 1 each PO Q6H PRN #30 tablet 05/06/16 11/23/17 Unknown Rx 5-325 mg TAB] Insulin NPH/Regular [NovoLIN 70/30] 20 units SUB-Q BID #100 units 05/06/1611/23 Unknown Rx Venlafaxine Xr [Effexor XR] 150 mg PO QDAY #30 capsule 05/06/16 11/23/17 Unknown Rx metFORMIN [Glucophage] 1,000 mg PO BID #60 tablet 05/06/16 11/23/17 Unknown Rx oxyCODONE ER [OxyCONTIN ER TAB] 10 mg PO Q12HR #14 tablet 05/06/16 11/23/17 Unknown Rx Active Meds: Active Medications Acetaminophen (Tylenol) 650 mg PO Q4H PRN PRN Reason: Pain MILD(1-3)/Fever >100.5/MALONE Acetaminophen/Hydrocodone Bitart ([place] 5/325) 1 each PO Q6H PRN PRN Reason: Pain, Moderate (4-6) Albuterol (Proventil) 2.5 mg IH Q4HRT PRN PRN Reason: Shortness Of Breath Aspirin (Aspirin) 325 mg PO QDAY [facility] Last Admin: 11/24/17 10:06 Dose: 325 mg Carvedilol (Coreg) 3.125 mg PO BID [facility] Last Admin: 11/24/17 10:44 Dose: Not Given Celecoxib (Celebrex) 100 mg PO BID [facility] Last Admin: 11/24/17 10:33 Dose: 100 mg Clopidogrel Bisulfate (Plavix) 75 mg PO QDAY [facility] Last Admin: 11/24/17 10:06 Dose: 75 mg Dextrose (D50w (25gm) Syringe) 50 ml IV PRN PRN PRN Reason: Hypoglycemia Famotidine (Pepcid) 20 mg PO BID [facility] Last Admin: 11/24/17 10:06 Dose: 20 mg Piperacillin Sod/Tazobactam Sod (Zosyn/Ns 4.5gm/100ml) 4.5 gm in 100 mls @ 200 mls/hr IV Q8HR [facility] PRN Reason: Protocol Last Admin: 11/24/17 06:42 Dose: 100 mls/hr Vancomycin HCl (Vancomycin/0.45 Ns 1 Gm/250 Ml) 1 gm in 250 mls @ 167.007 mls/ hr IV Q12H [facility] Last Admin: 11/24/17 10:34 Dose: 167.007 mls/hr Insulin Aspart (Novolog) 0 units SUB-Q ACHS [facility] PRN Reason: Protocol Last Admin: 11/24/17 12:07 Dose: 2 units Insulin Human Isoph/Insulin Regular (Novolin 70/30) 20 unit SUB-Q BID [facility] Last Admin: 11/24/17 09:23 Dose: 20 unit Multivitamins/Minerals (Theragran-M Tab) 1 each PO QDAY [facility] Last Admin: 11/24/17 10:06 Dose: 1 each Ondansetron HCl (Zofran) 4 mg IV Q8H PRN PRN Reason: N/V unrelieved by Hitesh Oxycodone HCl (Oxycontin) 10 mg PO Q12HR [facility] Last Admin: 11/24/17 10:05 Dose: 10 mg Venlafaxine HCl (Effexor Xr) 150 mg PO QDAY [facility] Review of Systems All systems: negative Exam Vital Signs Pulse Ox 99 11/23/17 14:20 - General physical appearance Positive: well developed, well nourished, no distress - Eyes Positive: PERRL, normal occular movement - ENT Positive: normal pinna, normal nares, normal mucosa, no hearing loss, no congestion - Neck Positive: no masses, no bruits, trachea midline, no venous distension - Respiratory Positive: normal expansion, normal respiratory effort, clear to auscultation - Cardiovascular Rhythm: regular Heart Sounds: Present: S1 & S2. Absent: rub, click - Extremities Extremity abnormal: other (There is a non-draining ulcer of his distal right great toe. The associated toe nail is missing. I cannot express any drainage from the ulcer and the foot proximal to the toe has no associated signs of infection.) Peripheral Pulses: abnormal (The right DP and PT pulses are non-palpable.) - Breasts Breasts: deferred - Abdomen Abdomen: Present: soft, bowel sounds normal. Absent: tender, distended Hernia: none - Genitourinary Male Genitourinary: deferred - Neurologic Neurologic: alert and oriented to time, place and person, motor strength and sensation are grossly intact - Musculoskeletal normal gait, normal posture - Psychiatric Psychiatric: appropriate mood/affect, intact judgment & insight Results - Labs 11/23/17 14:53 11/23/17 14:53 Abnormal lab results 11/23/17 11/23/17 11/23/17 Range/Units 14:53 14:53 21:01 WBC 18.3 H (4.5-11.0) K/mm3 Hgb 11.7 L (11.8-15.2) gm/dl Hct 34.5 L (35.5-45.6) % Lymph % (Auto) 7.2 L (13.4-35.0) % [place] # 1.0 H (0.0-0.8) K/mm3 Seg Neutrophils % 86.9 H (40.0-70.0) % Seg Neutrophils # 15.9 H (1.8-7.7) K/mm3 Sodium 135 L (137-145) mmol/L Chloride 92.4 L (98-107) mmol/L Creatinine 0.7 L (0.8-1.5) mg/dL Glucose 221 H (75-100) mg/dL POC Glucose (70-105) Lactic Acid 3.90 H* (0.7-2.0) mmol/L Urine WBC (Auto) (0.0-6.0) /HPF 11/23/17 11/24/17 11/24/17 Range/Units 23:37 00:45 00:56 WBC (4.5-11.0) K/mm3 Hgb (11.8-15.2) gm/dl Hct (35.5-45.6) % Lymph % (Auto) (13.4-35.0) % [place] # (0.0-0.8) K/mm3 Seg Neutrophils % (40.0-70.0) % Seg Neutrophils # (1.8-7.7) K/mm3 Sodium (137-145) mmol/L Chloride (98-107) mmol/L Creatinine (0.8-1.5) mg/dL Glucose (75-100) mg/dL POC Glucose 405 H (70-105) Lactic Acid 4.30 H* 2.80 H* (0.7-2.0) mmol/L Urine WBC (Auto) (0.0-6.0) /HPF 11/24/17 11/24/17 11/24/17 Range/Units 04:47 08:31 11:23 WBC (4.5-11.0) K/mm3 Hgb (11.8-15.2) gm/dl Hct (35.5-45.6) % Lymph % (Auto) (13.4-35.0) % [place] # (0.0-0.8) K/mm3 Seg Neutrophils % (40.0-70.0) % Seg Neutrophils # (1.8-7.7) K/mm3 Sodium (137-145) mmol/L Chloride (98-107) mmol/L Creatinine (0.8-1.5) mg/dL Glucose (75-100) mg/dL POC Glucose 115 H 174 H (70-105) Lactic Acid (0.7-2.0) mmol/L Urine WBC (Auto) 9.0 H (0.0-6.0) /[facility] Diabetes panel 11/23/17 Range/Units 14:53 Sodium 135 L (137-145) mmol/L Potassium 4.7 (3.6-5.0) mmol/L Chloride 92.4 L (98-107) mmol/L Carbon Dioxide 26 (22-30) mmol/L BUN 9 (9-20) mg/dL Creatinine 0.7 L (0.8-1.5) mg/dL Glucose 221 H (75-100) mg/dL Calcium 8.7 (8.4-10.2) mg/dL Calcium panel 11/23/17 Range/Units 14:53 Calcium 8.7 (8.4-10.2) mg/dL Pituitary panel 11/23/17 Range/Units 14:53 Sodium 135 L (137-145) mmol/L Potassium 4.7 (3.6-5.0) mmol/L Chloride 92.4 L (98-107) mmol/L Carbon Dioxide 26 (22-30) mmol/L BUN 9 (9-20) mg/dL Creatinine 0.7 L (0.8-1.5) mg/dL Glucose 221 H (75-100) mg/dL Calcium 8.7 (8.4-10.2) mg/dL Adrenal panel 11/23/17 Range/Units 14:53 Sodium 135 L (137-145) mmol/L Potassium 4.7 (3.6-5.0) mmol/L Chloride 92.4 L (98-107) mmol/L Carbon Dioxide 26 (22-30) mmol/L BUN 9 (9-20) mg/dL Creatinine 0.7 L (0.8-1.5) mg/dL Glucose 221 H (75-100) mg/dL Calcium 8.7 (8.4-10.2) mg/dL - Imaging Additional studies: Declining lactic acid levels are noted. Assessment and Plan - Patient Problems (1) Non-pressure ulcer of right lower extremity with fat layer exposed Current Visit: Yes Status: Acute Plan to address problem: 1) Arterial dopplers of RLE 2) MRI with contrast of RLE 3) CBC 4) Wound care nurse consult (done) 5) Strict DM control
[2017-11-24] MEDS: EFFEXOR XR PO SCH (15:12)
[2017-11-24] MEDS: NORCO 5/325 PO PRN (15:12)
[2017-11-24 17:03] LABS: Hematocrit 29.2 % (35.5-45.6); Hemoglobin 9.5 gm/dl (11.8-15.2); Mean Corpuscular HGB Conc 32 % (32-34); Mean Corpuscular Hemoglobin 30 pg (28-32); Mean Corpuscular Volume 92 fl (84-94); Platelet Count 324 K/mm3 (140-440); Red Blood Count 3.17 M/mm3 (3.65-5.03); Red Cell Distribution Width 13.6 % (13.2-15.2)
[2017-11-24 17:45] LABS: Basophils % (Manual) 0 % (0.0-1.8); Eosinophils % (Manual) 0 % (0.0-4.3); Platelet Estimate Consistent w Auto; RBC Morphology Normal; Total Cells Counted 100
[2017-11-24 17:46] LABS: Platelet Clumps Few
--- NOTE | 2017-11-24 22:41 | XRay Report ---
FINAL REPORT PROCEDURE: XR FOOT 3+V RT TECHNIQUE: RIGHT foot radiographs, AP, lateral, and oblique views. CPT 42255 HISTORY: PAIN, SWELLING POSSIBLE osteomyelitis COMPARISON: No prior studies are available for comparison. FINDINGS: There is irregular osteolytic destruction the distal half the 1st distal phalanx. Joint space narrowing with osteophyte formation is noted involving 1st metatarsophalangeal joint. An acute fracture is not identified. There are no radiopaque foreign bodies. IMPRESSION: Findings are consistent with osteomyelitis with destruction of the distal half of 1st distal phalanx..
[2017-11-25] MEDS: NOVOLOG SUB-Q SCH ×5 (01:00→22:56)
[2017-11-25] MEDS: ZOSYN/NS 4.5GM/100ML 4.5 GM/100 ML VIAL IV SCH ×2 (06:24→14:21)
[2017-11-25] MEDS: NORCO 5/325 PO PRN (08:08)
[2017-11-25] MEDS: VANCOMYCIN/0.45 NS 1 GM/250 ML 1 GM/250 ML BAG IV SCH (08:08)
[2017-11-25] MEDS: COREG PO SCH ×2 (09:11→22:27)
[2017-11-25] MEDS: ASPIRIN PO SCH (09:11)
[2017-11-25] MEDS: PEPCID PO SCH ×2 (09:11→22:26)
[2017-11-25] MEDS: PLAVIX PO SCH (09:11)
[2017-11-25] MEDS: THERAGRAN-M Tab PO SCH (09:11)
[2017-11-25] MEDS: EFFEXOR XR PO SCH (09:12)
[2017-11-25] MEDS: OxyCONTIN PO SCH ×2 (09:13→22:25)
--- NOTE | 2017-11-25 09:23 | Progress Note ---
<LAKEISHA ZAVALA - Last Filed: 11/25/17 15:09> Assessment and Plan Assessment and plan: 62 YO Male with DM, Diabetic Neuropathy, HTN, HLD, CAD S/P Stent Placement, CVA with LHP, Methamphetamine Dependence presents to ED for evaluation. Pt states that he has experienced pain in his right foot for the past 1 month. Sepsis Likely secondary to Cellulitis continue IV antibiotic therapy, follow blood cultures urinalysis UTI Order urine culture, continue antibiotics CAD (coronary artery disease) Continue Statin therapy, low cholesterol diet, COPD (chronic obstructive pulmonary disease) supplemental oxygen, nebulizer therapy, NIPPV as clinically indicated. Methamphetamine dependence Supportive care, Pt counseled on cessation Cellulitis of right foot IV abx, IVF, supportive care x-ray showed Findings are consistent with osteomyelitis with destruction of the distal half of 1st distal phalanx. RLE ARTERIAL DUPLEX DONE.MONOPHASIC WAVEFORMS OBTAINED THROUGHOUT RLE VESSELS FROM INFLOW TO OUTFLOW General surgery and ID following DVT prophylaxis SCDs History Interval history: Patient seen and examined. He denies chest pain, shortness of breath, nausea vomiting. His only complaint is that of right foot pain. Labs and nursing notes reviewed Hospitalist Physical - Constitutional Vitals: Temp Pulse Resp BP Pulse Ox 98.5 F 87 20 115/66 95 11/25/17 08:01 11/25/17 08:01 11/25/17 08:01 11/25/17 08:01 11/25/17 08:01 General appearance: Present: no acute distress, disheveled, malodorous - EENT Eyes: Present: PERRL, EOM intact ENT: hearing intact, clear oral mucosa - Neck Neck: Present: supple, normal ROM - Respiratory Respiratory effort: normal Respiratory: bilateral: CTA - Cardiovascular Rhythm: regular Heart Sounds: Present: S1 & S2 - Extremities Extremities: no ischemia, No edema Extremity abnormal: other (R foot bandaged) - Abdominal General gastrointestinal: soft, non-tender, non-distended - Integumentary Integumentary: Present: clear, warm, dry - Psychiatric Psychiatric: appropriate mood/affect, cooperative - Neurologic Neurologic: CNII-XII intact, moves all extremities - Allied Health Allied health notes reviewed: nursing Results - Labs CBC & Chem 7: 11/24/17 16:40 11/23/17 14:53 Labs: Laboratory Last Values WBC 20.3 K/mm3 (4.5-11.0) H 11/24/17 16:40 RBC 3.17 M/mm3 (3.65-5.03) L 11/24/17 16:40 Hgb 9.5 gm/dl (11.8-15.2) L 11/24/17 16:40 Hct 29.2 % (35.5-45.6) L 11/24/17 16:40 MCV 92 fl (84-94) 11/24/17 16:40 MCH 30 pg (28-32) 11/24/17 16:40 MCHC 32 % (32-34) 11/24/17 16:40 RDW 13.6 % (13.2-15.2) 11/24/17 16:40 Plt Count 324 K/mm3 (140-440) 11/24/17 16:40 Lymph % (Auto) 7.2 % (13.4-35.0) L 11/23/17 14:53 Petroleum % (Auto) 5.5 % (0.0-7.3) 11/23/17 14:53 Eos % (Auto) 0.2 % (0.0-4.3) 11/23/17 14:53 Baso % (Auto) 0.2 % (0.0-1.8) 11/23/17 14:53 Lymph # 1.3 K/mm3 (1.2-5.4) 11/23/17 14:53 [place] # 1.0 K/mm3 (0.0-0.8) H 11/23/17 14:53 Eos # 0.0 K/mm3 (0.0-0.4) 11/23/17 14:53 Baso # 0.0 K/mm3 (0.0-0.1) 11/23/17 14:53 Add Manual Diff Complete 11/24/17 16:40 Total Counted 100 11/24/17 16:40 Seg Neutrophils % 86.9 % (40.0-70.0) H 11/23/17 14:53 Seg Neuts % (Manual) 79.0 % (40.0-70.0) H 11/24/17 16:40 Band Neutrophils % 0 % 11/24/17 16:40 Lymphocytes % (Manual) 17.0 % (13.4-35.0) 11/24/17 16:40 Reactive Lymphs % (Man) 0 % 11/24/17 16:40 Monocytes % (Manual) 4.0 % (0.0-7.3) 11/24/17 16:40 Eosinophils % (Manual) 0 % (0.0-4.3) 11/24/17 16:40 Basophils % (Manual) 0 % (0.0-1.8) 11/24/17 16:40 Metamyelocytes % 0 % 11/24/17 16:40 Myelocytes % 0 % 11/24/17 16:40 Promyelocytes % 0 % 11/24/17 16:40 Blast Cells % 0 % 11/24/17 16:40 Nucleated RBC % Not Reportable 11/24/17 16:40 Seg Neutrophils # 15.9 K/mm3 (1.8-7.7) H 11/23/17 14:53 Seg Neutrophils # Man 16.0 K/mm3 (1.8-7.7) H 11/24/17 16:40 Band Neutrophils # 0.0 K/mm3 11/24/17 16:40 Lymphocytes # (Manual) 3.5 K/mm3 (1.2-5.4) 11/24/17 16:40 Abs React Lymphs (Man) 0.0 K/mm3 11/24/17 16:40 Monocytes # (Manual) 0.8 K/mm3 (0.0-0.8) 11/24/17 16:40 Eosinophils # (Manual) 0.0 K/mm3 (0.0-0.4) 11/24/17 16:40 Basophils # (Manual) 0.0 K/mm3 (0.0-0.1) 11/24/17 16:40 Metamyelocytes # 0.0 K/mm3 11/24/17 16:40 Myelocytes # 0.0 K/mm3 11/24/17 16:40 Promyelocytes # 0.0 K/mm3 11/24/17 16:40 Blast Cells # 0.0 K/mm3 11/24/17 16:40 WBC Morphology Not Reportable 11/24/17 16:40 Hypersegmented Neuts Not Reportable 11/24/17 16:40 Hyposegmented Neuts Not Reportable 11/24/17 16:40 Hypogranular Neuts Not Reportable 11/24/17 16:40 Smudge Cells Not Reportable 11/24/17 16:40 Toxic Granulation Not Reportable 11/24/17 16:40 Toxic Vacuolation Not Reportable 11/24/17 16:40 Dohle Bodies Not Reportable 11/24/17 16:40 Pelger-Huet Anomaly Not Reportable 11/24/17 16:40 Surendra Rods Not Reportable 11/24/17 16:40 Platelet Estimate Consistent w auto 11/24/17 16:40 Clumped Platelets Few 11/24/17 16:40 Plt Clumps, EDTA Not Reportable 11/24/17 16:40 Large Platelets Not Reportable 11/24/17 16:40 Giant Platelets Not Reportable 11/24/17 16:40 Platelet Satelliting Not Reportable 11/24/17 16:40 Plt Morphology Comment Not Reportable 11/24/17 16:40 RBC Morphology Normal 11/24/17 16:40 Dimorphic RBCs Not Reportable 11/24/17 16:40 Polychromasia Not Reportable 11/24/17 16:40 Hypochromasia Not Reportable 11/24/17 16:40 Poikilocytosis Not Reportable 11/24/17 16:40 Anisocytosis Not Reportable 11/24/17 16:40 Microcytosis Not Reportable 11/24/17 16:40 Macrocytosis Not Reportable 11/24/17 16:40 Spherocytes Not Reportable 11/24/17 16:40 Pappenheimer Bodies Not Reportable 11/24/17 16:40 Sickle Cells Not Reportable 11/24/17 16:40 Target Cells Not Reportable 11/24/17 16:40 Tear Drop Cells Not Reportable 11/24/17 16:40 Ovalocytes Not Reportable 11/24/17 16:40 Helmet Cells Not Reportable 11/24/17 16:40 Dahl-Forsyth Bodies Not Reportable 11/24/17 16:40 [place] Rings Not Reportable 11/24/17 16:40 Fidel Cells Not Reportable 11/24/17 16:40 Bite Cells Not Reportable 11/24/17 16:40 Crenated Cell Not Reportable 11/24/17 16:40 Elliptocytes Not Reportable 11/24/17 16:40 Acanthocytes (Spur) Not Reportable 11/24/17 16:40 Rouleaux Not Reportable 11/24/17 16:40 Hemoglobin C Crystals Not Reportable 11/24/17 16:40 Schistocytes Not Reportable 11/24/17 16:40 Malaria parasites Not Reportable 11/24/17 16:40 ESR > 140.0 mm/Hr (0-20) 11/23/17 14:53 Ellis Bodies Not Reportable 11/24/17 16:40 Hem Pathologist Commnt No 11/24/17 16:40 Sodium 135 mmol/L (137-145) L 11/23/17 14:53 Potassium 4.7 mmol/L (3.6-5.0) 11/23/17 14:53 Chloride 92.4 mmol/L (98-107) L 11/23/17 14:53 Carbon Dioxide 26 mmol/L (22-30) 11/23/17 14:53 Anion Gap 21 mmol/L 11/23/17 14:53 BUN 9 mg/dL (9-20) 11/23/17 14:53 Creatinine 0.7 mg/dL (0.8-1.5) L 11/23/17 14:53 Estimated GFR > 60 ml/min 11/23/17 14:53 BUN/Creatinine Ratio 13 % 11/23/17 14:53 Glucose 221 mg/dL (75-100) H 11/23/17 14:53 POC Glucose 113 (70-105) H 11/25/17 06:25 Hemoglobin A1c 7.6 % (4-6) H 11/24/17 16:40 Lactic Acid 1.30 mmol/L (0.7-2.0) 11/24/17 02:35 Calcium 8.7 mg/dL (8.4-10.2) 11/23/17 14:53 C-Reactive Protein 23.30 mg/dL (0.00-1.30) H 11/24/17 16:40 Urine Color Yellow (Yellow) 11/24/17 04:47 Urine Turbidity Clear (Clear) 11/24/17 04:47 Urine pH 5.0 (5.0-7.0) 11/24/17 04:47 Ur Specific [place] 1.026 (1.003-1.030) 11/24/17 04:47 Urine Protein 30 mg/dl mg/dL (Negative) 11/24/17 04:47 Urine Glucose (UA) 50 mg/dL (Negative) 11/24/17 04:47 Urine Ketones Neg mg/dL (Negative) 11/24/17 04:47 Urine Blood Neg (Negative) 11/24/17 04:47 Urine Nitrite Neg (Negative) 11/24/17 04:47 Urine Bilirubin Neg (Negative) 11/24/17 04:47 Urine Urobilinogen 4.0 mg/dL (<2.0) 11/24/17 04:47 Ur Leukocyte Esterase Tr (Negative) 11/24/17 04:47 Urine WBC (Auto) 9.0 /HPF (0.0-6.0) H 11/24/17 04:47 Urine RBC (Auto) 2.0 /HPF (0.0-6.0) 11/24/17 04:47 U Epithel Cells (Auto) < 1.0 /HPF (0-13.0) 11/24/17 04:47 Urine Mucus Few /HPF 11/24/17 04:47 Urine Opiates Screen Presumptive negative 11/24/17 04:46 Urine Methadone Screen Presumptive negative 11/24/17 04:46 Ur Barbiturates Screen Presumptive negative 11/24/17 04:46 Ur Phencyclidine Scrn Presumptive negative 11/24/17 04:46 Ur Amphetamines Screen Presumptive positive 11/24/17 04:46 U Benzodiazepines Scrn Presumptive negative 11/24/17 04:46 Urine Cocaine Screen Presumptive negative 11/24/17 04:46 U Marijuana (THC) Screen Presumptive negative 11/24/17 04:46 Drugs of Abuse Note Disclamer 11/24/17 04:46 <ROSALINE WILEY - Last Filed: 11/26/17 08:11> Assessment and Plan Assessment and plan: I saw and evaluated the patient. I agree with the findings and the plan of care as documented in the pa's~note, with the following corrections and additions. Hospitalist Physical - Constitutional Vitals: Temp Pulse Resp BP Pulse Ox 97.6 F 97 H 18 116/63 96 11/26/17 03:16 11/25/17 22:27 11/25/17 22:00 11/25/17 22:27 11/25/17 15:27 Results - Labs CBC & Chem 7: 11/24/17 16:40 11/23/17 14:53 Labs: Laboratory Last Values WBC 20.3 K/mm3 (4.5-11.0) H 11/24/17 16:40 RBC 3.17 M/mm3 (3.65-5.03) L 11/24/17 16:40 Hgb 9.5 gm/dl (11.8-15.2) L 11/24/17 16:40 Hct 29.2 % (35.5-45.6) L 11/24/17 16:40 MCV 92 fl (84-94) 11/24/17 16:40 MCH 30 pg (28-32) 11/24/17 16:40 MCHC 32 % (32-34) 11/24/17 16:40 RDW 13.6 % (13.2-15.2) 11/24/17 16:40 Plt Count 324 K/mm3 (140-440) 11/24/17 16:40 Lymph % (Auto) 7.2 % (13.4-35.0) L 11/23/17 14:53 Petroleum % (Auto) 5.5 % (0.0-7.3) 11/23/17 14:53 Eos % (Auto) 0.2 % (0.0-4.3) 11/23/17 14:53 Baso % (Auto) 0.2 % (0.0-1.8) 11/23/17 14:53 Lymph # 1.3 K/mm3 (1.2-5.4) 11/23/17 14:53 [place] # 1.0 K/mm3 (0.0-0.8) H 11/23/17 14:53 Eos # 0.0 K/mm3 (0.0-0.4) 11/23/17 14:53 Baso # 0.0 K/mm3 (0.0-0.1) 11/23/17 14:53 Add Manual Diff Complete 11/24/17 16:40 Total Counted 100 11/24/17 16:40 Seg Neutrophils % 86.9 % (40.0-70.0) H 11/23/17 14:53 Seg Neuts % (Manual) 79.0 % (40.0-70.0) H 11/24/17 16:40 Band Neutrophils % 0 % 11/24/17 16:40 Lymphocytes % (Manual) 17.0 % (13.4-35.0) 11/24/17 16:40 Reactive Lymphs % (Man) 0 % 11/24/17 16:40 Monocytes % (Manual) 4.0 % (0.0-7.3) 11/24/17 16:40 Eosinophils % (Manual) 0 % (0.0-4.3) 11/24/17 16:40 Basophils % (Manual) 0 % (0.0-1.8) 11/24/17 16:40 Metamyelocytes % 0 % 11/24/17 16:40 Myelocytes % 0 % 11/24/17 16:40 Promyelocytes % 0 % 11/24/17 16:40 Blast Cells % 0 % 11/24/17 16:40 Nucleated RBC % Not Reportable 11/24/17 16:40 Seg Neutrophils # 15.9 K/mm3 (1.8-7.7) H 11/23/17 14:53 Seg Neutrophils # Man 16.0 K/mm3 (1.8-7.7) H 11/24/17 16:40 Band Neutrophils # 0.0 K/mm3 11/24/17 16:40 Lymphocytes # (Manual) 3.5 K/mm3 (1.2-5.4) 11/24/17 16:40 Abs React Lymphs (Man) 0.0 K/mm3 11/24/17 16:40 Monocytes # (Manual) 0.8 K/mm3 (0.0-0.8) 11/24/17 16:40 Eosinophils # (Manual) 0.0 K/mm3 (0.0-0.4) 11/24/17 16:40 Basophils # (Manual) 0.0 K/mm3 (0.0-0.1) 11/24/17 16:40 Metamyelocytes # 0.0 K/mm3 11/24/17 16:40 Myelocytes # 0.0 K/mm3 11/24/17 16:40 Promyelocytes # 0.0 K/mm3 11/24/17 16:40 Blast Cells # 0.0 K/mm3 11/24/17 16:40 WBC Morphology Not Reportable 11/24/17 16:40 Hypersegmented Neuts Not Reportable 11/24/17 16:40 Hyposegmented Neuts Not Reportable 11/24/17 16:40 Hypogranular Neuts Not Reportable 11/24/17 16:40 Smudge Cells Not Reportable 11/24/17 16:40 Toxic Granulation Not Reportable 11/24/17 16:40 Toxic Vacuolation Not Reportable 11/24/17 16:40 Dohle Bodies Not Reportable 11/24/17 16:40 Pelger-Huet Anomaly Not Reportable 11/24/17 16:40 Surendra Rods Not Reportable 11/24/17 16:40 Platelet Estimate Consistent w auto 11/24/17 16:40 Clumped Platelets Few 11/24/17 16:40 Plt Clumps, EDTA Not Reportable 11/24/17 16:40 Large Platelets Not Reportable 11/24/17 16:40 Giant Platelets Not Reportable 11/24/17 16:40 Platelet Satelliting Not Reportable 11/24/17 16:40 Plt Morphology Comment Not Reportable 11/24/17 16:40 RBC Morphology Normal 11/24/17 16:40 Dimorphic RBCs Not Reportable 11/24/17 16:40 Polychromasia Not Reportable 11/24/17 16:40 Hypochromasia Not Reportable 11/24/17 16:40 Poikilocytosis Not Reportable 11/24/17 16:40 Anisocytosis Not Reportable 11/24/17 16:40 Microcytosis Not Reportable 11/24/17 16:40 Macrocytosis Not Reportable 11/24/17 16:40 Spherocytes Not Reportable 11/24/17 16:40 Pappenheimer Bodies Not Reportable 11/24/17 16:40 Sickle Cells Not Reportable 11/24/17 16:40 Target Cells Not Reportable 11/24/17 16:40 Tear Drop Cells Not Reportable 11/24/17 16:40 Ovalocytes Not Reportable 11/24/17 16:40 Helmet Cells Not Reportable 11/24/17 16:40 Dahl-Forsyth Bodies Not Reportable 11/24/17 16:40 [place] Rings Not Reportable 11/24/17 16:40 Fidel Cells Not Reportable 11/24/17 16:40 Bite Cells Not Reportable 11/24/17 16:40 Crenated Cell Not Reportable 11/24/17 16:40 Elliptocytes Not Reportable 11/24/17 16:40 Acanthocytes (Spur) Not Reportable 11/24/17 16:40 Rouleaux Not Reportable 11/24/17 16:40 Hemoglobin C Crystals Not Reportable 11/24/17 16:40 Schistocytes Not Reportable 11/24/17 16:40 Malaria parasites Not Reportable 11/24/17 16:40 ESR > 140.0 mm/Hr (0-20) 11/23/17 14:53 Ellis Bodies Not Reportable 11/24/17 16:40 Hem Pathologist Commnt No 11/24/17 16:40 Sodium 135 mmol/L (137-145) L 11/23/17 14:53 Potassium 4.7 mmol/L (3.6-5.0) 11/23/17 14:53 Chloride 92.4 mmol/L (98-107) L 11/23/17 14:53 Carbon Dioxide 26 mmol/L (22-30) 11/23/17 14:53 Anion Gap 21 mmol/L 11/23/17 14:53 BUN 9 mg/dL (9-20) 11/23/17 14:53 Creatinine 0.7 mg/dL (0.8-1.5) L 11/23/17 14:53 Estimated GFR > 60 ml/min 11/23/17 14:53 BUN/Creatinine Ratio 13 % 11/23/17 14:53 Glucose 221 mg/dL (75-100) H 11/23/17 14:53 POC Glucose 140 (70-105) H 11/26/17 06:53 Hemoglobin A1c 7.6 % (4-6) H 11/24/17 16:40 Lactic Acid 1.30 mmol/L (0.7-2.0) 11/24/17 02:35 Calcium 8.7 mg/dL (8.4-10.2) 11/23/17 14:53 C-Reactive Protein 23.30 mg/dL (0.00-1.30) H 11/24/17 16:40 Urine Color Yellow (Yellow) 11/24/17 04:47 Urine Turbidity Clear (Clear) 11/24/17 04:47 Urine pH 5.0 (5.0-7.0) 11/24/17 04:47 Ur Specific [place] 1.026 (1.003-1.030) 11/24/17 04:47 Urine Protein 30 mg/dl mg/dL (Negative) 11/24/17 04:47 Urine Glucose (UA) 50 mg/dL (Negative) 11/24/17 04:47 Urine Ketones Neg mg/dL (Negative) 11/24/17 04:47 Urine Blood Neg (Negative) 11/24/17 04:47 Urine Nitrite Neg (Negative) 11/24/17 04:47 Urine Bilirubin Neg (Negative) 11/24/17 04:47 Urine Urobilinogen 4.0 mg/dL (<2.0) 11/24/17 04:47 Ur Leukocyte Esterase Tr (Negative) 11/24/17 04:47 Urine WBC (Auto) 9.0 /HPF (0.0-6.0) H 11/24/17 04:47 Urine RBC (Auto) 2.0 /HPF (0.0-6.0) 11/24/17 04:47 U Epithel Cells (Auto) < 1.0 /HPF (0-13.0) 11/24/17 04:47 Urine Mucus Few /HPF 11/24/17 04:47 Urine Opiates Screen Presumptive negative 11/24/17 04:46 Urine Methadone Screen Presumptive negative 11/24/17 04:46 Ur Barbiturates Screen Presumptive negative 11/24/17 04:46 Ur Phencyclidine Scrn Presumptive negative 11/24/17 04:46 Ur Amphetamines Screen Presumptive positive 11/24/17 04:46 U Benzodiazepines Scrn Presumptive negative 11/24/17 04:46 Urine Cocaine Screen Presumptive negative 11/24/17 04:46 U Marijuana (THC) Screen Presumptive negative 11/24/17 04:46 Drugs of Abuse Note Disclamer 11/24/17 04:46
--- NOTE | 2017-11-25 10:49 | Progress Note ---
Assessment and Plan Assessment: 1) Sepsis: Still tachycardia, hypotension, leukocytosis. Etiology most likely cellulitis of right foot -CRP = 23.30 3) Diabetic foot ulcer right great toe with cellulitis, presumed osteomyelitis; r/o abscess -Right foot with erythema of the great toe extension to the dorsal surface of the foot with tenderness to palpation and mild swelling. -Foot X-Ray findings are consistent with osteomyelitis with destruction of the distal half of the 1st distal phalanx - 3) Diabetes; uncontrolled 4) CAD 5) COPD 6) Acute [place] 7) hypertension; stable 8) seizures, stroke 9) PVD Plan: -follow-up blood cultures -continue zosyn and vanco day 3 -Dr. Bajwa, Arterial dopplers of RLE (Preliminary report indicates monophasic flow throughout the RLE. Will likely need a Vascular consultation.) -recommend wound care Thank you Dr. Batista for your consultation, will follow up with you. Dean Cox NP for Dr. Nicci Vera MD Infectious Diseases Specialist [facility] ([facility]) M [phone] O [phone] Subjective Date of service: 11/25/17 Principal diagnosis: cellulitis Interval history: Microbiology: Blood cultures: 11/23 ngtd Urine cultures: 11/24 ngtd Current Antimicrobials: Zosyn 11/23 Vancomycin 11/23 Previous Antimicrobials: Objective - Exam Narrative Exam: General appearance: Alert in NAD, conversant Eyes: anicteric sclerae, moist conjunctivae; no lid-lag; PERRLA HENT: Atraumatic; oropharynx clear Neck: Trachea midline; supple, no thyromegaly or lymphadenopathy Lungs: CTAB CV: RRR S1 S2 Abdomen: firm and tense + RUQ tenderness; +hepatosplenomegaly Extremities: Right foot with erythema of the great toe extension to the dorsal surface of the foot with tenderness to palpation. Mild swelling. 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 Moving all extermities Lines: No CVL / PICC - Constitutional Vitals: Vital Signs Temp Pulse Resp BP Pulse Ox 98.5 F 87 20 115/66 95 11/25/17 08:01 11/25/17 08:01 11/25/17 08:01 11/25/17 08:01 11/25/17 08:01 Temperature -Last 24 Hours Temperature 98.5 F Temperature 99.0 F Temperature 99.6 F Temperature 98.1 F Temperature 100.2 F Temperature 98.2 F - Labs CBC & Chem 7: 11/24/17 16:40 11/23/17 14:53 Labs: Abnormal lab results 11/24/17 11/24/17 11/24/17 Range/Units 04:47 11:23 16:23 WBC (4.5-11.0) K/mm3 RBC (3.65-5.03) M/mm3 Hgb (11.8-15.2) gm/dl Hct (35.5-45.6) % Seg Neuts % (Manual) (40.0-70.0) % Seg Neutrophils # Man (1.8-7.7) K/mm3 POC Glucose 174 H 69 L (70-105) Hemoglobin A1c (4-6) % C-Reactive Protein (0.00-1.30) mg/dL Urine WBC (Auto) 9.0 H (0.0-6.0) /HPF 11/24/17 11/24/17 11/24/17 Range/Units 16:40 16:40 16:40 WBC 20.3 H (4.5-11.0) K/mm3 RBC 3.17 L (3.65-5.03) M/mm3 Hgb 9.5 L (11.8-15.2) gm/dl Hct 29.2 L (35.5-45.6) % Seg Neuts % (Manual) 79.0 H (40.0-70.0) % Seg Neutrophils # Man 16.0 H (1.8-7.7) K/mm3 POC Glucose (70-105) Hemoglobin A1c 7.6 H (4-6) % C-Reactive Protein 23.30 H (0.00-1.30) mg/dL Urine WBC (Auto) (0.0-6.0) /HPF 11/24/17 11/24/17 11/25/17 Range/Units 17:41 21:46 06:25 WBC (4.5-11.0) K/mm3 RBC (3.65-5.03) M/mm3 Hgb (11.8-15.2) gm/dl Hct (35.5-45.6) % Seg Neuts % (Manual) (40.0-70.0) % Seg Neutrophils # Man (1.8-7.7) K/mm3 POC Glucose 156 H 137 H 113 H (70-105) Hemoglobin A1c (4-6) % C-Reactive Protein (0.00-1.30) mg/dL Urine WBC (Auto) (0.0-6.0) /HPF
--- NOTE | 2017-11-25 11:56 | Progress Note ---
Assessment and Plan - Patient Problems (1) Non-pressure ulcer of right lower extremity with fat layer exposed Current Visit: Yes Status: Acute Plan to address problem: 1) Check MRI of right foot 2) Check RLE arterial dopplers 3) Strict DM control 4) Antibiotics per ID Subjective Date of service: 11/25/17 Patient Reports: Positive: no new complaints Objective Vital Signs - 12hr 11/25/17 11/25/17 11/25/17 00:04 00:48 04:43 Temperature 98.1 F 99.6 F 99.0 F Pulse Rate 85 110 H 90 Respiratory 16 16 18 Rate Blood Pressure Blood Pressure 117/74 122/75 [Left] O2 Sat by Pulse 95 98 100 Oximetry 11/25/17 08:01 Temperature 98.5 F Pulse Rate 87 Respiratory 20 Rate Blood Pressure 115/66 Blood Pressure [Left] O2 Sat by Pulse 95 Oximetry - Integumentary other (No change in right great toe.) - Labs 11/24/17 16:40 11/23/17 14:53 Diabetes panel 11/24/17 Range/Units 16:40 Hemoglobin A1c 7.6 H (4-6) %
[2017-11-26] MEDS: VANCOMYCIN/0.45 NS 1 GM/250 ML 1 GM/250 ML BAG IV SCH ×3 (00:42→22:52)
[2017-11-26] MEDS: ZOSYN/NS 4.5GM/100ML 4.5 GM/100 ML VIAL IV SCH ×4 (02:29→22:58)
[2017-11-26] MEDS ORDERED: ANCEF/STERILE WATER 2 GM/20 ML 2 GM/20 ML SYRINGE IV NR (06:00)
[2017-11-26] MEDS ORDERED: ATIVAN IV SCH (06:00)
[2017-11-26] MEDS: NOVOLOG SUB-Q SCH ×4 (07:30→22:58)
--- NOTE | 2017-11-26 09:21 | Consultation ---
History of Present Illness - Reason for Consult Consult date: 11/26/17 peripheral vascular disease - History of Present Illness 62-year-old male with diabetes complicated by neuropathy, peripheral vascular disease, hypertension, hyperlipidemia, coronary artery disease with stent placement, and stroke with left residual defects with methamphetamine dependence who presented to the emergency room for evaluation with pain in his right foot for a month. He was placed on antibiotics at the [facility] but then did not return to the [facility] for care. The patient reports baseline right-sided claudication. Approximately 2 years ago, the patient had partial amputation of some of the toes on his left foot and I revascularize his left foot with successful limb salvage. Reviewed arterial ultrasound which demonstrates monophasic flow throughout the right lower extremity. Nonpalpable bilateral pedal pulses. Past History Past Medical History: acute [place], CAD, COPD, diabetes, hypertension, seizures, stroke Past Surgical History: Other (Right Foot surgery, Stent Placement, ) Social history: , lives with family. denies: alcohol abuse Family history: diabetes, hypertension Medications and Allergies Allergies Allergy/AdvReac Type Severity Reaction Status Date / Time No Known Allergies Allergy Unverified 12/11/13 07:25 Home Medications Medication Instructions Recorded Confirmed Last Taken Type Aspirin [Aspirin TAB] 325 mg PO QDAY #30 tablet 05/06/16 11/23/17 Unknown Rx Carvedilol [Coreg] 3.125 mg PO BID #60 tablet 05/06/16 11/23/17 Unknown Rx Celecoxib [celeBREX] 100 mg PO BID #60 capsule 05/06/16 11/23/17 Unknown Rx Clopidogrel [Plavix] 75 mg PO QDAY #30 tablet 05/06/16 11/23/17 Unknown Rx HYDROcodone/APAP 5-325 [[place] 1 each PO Q6H PRN #30 tablet 05/06/16 11/23/17 Unknown Rx 5-325 mg TAB] Insulin NPH/Regular [NovoLIN 70/30] 20 units SUB-Q BID #100 units 05/06/1611/23 Unknown Rx Venlafaxine Xr [Effexor XR] 150 mg PO QDAY #30 capsule 05/06/16 11/23/17 Unknown Rx metFORMIN [Glucophage] 1,000 mg PO BID #60 tablet 05/06/16 11/23/17 Unknown Rx oxyCODONE ER [OxyCONTIN ER TAB] 10 mg PO Q12HR #14 tablet 05/06/16 11/23/17 Unknown Rx Active Meds: Active Medications Acetaminophen (Tylenol) 650 mg PO Q4H PRN PRN Reason: Pain MILD(1-3)/Fever >100.5/MALONE Acetaminophen/Hydrocodone Bitart ([place] 5/325) 1 each PO Q6H PRN PRN Reason: Pain, Moderate (4-6) Last Admin: 11/25/17 08:08 Dose: 1 each Albuterol (Proventil) 2.5 mg IH Q4HRT PRN PRN Reason: Shortness Of Breath Aspirin (Aspirin) 325 mg PO QDAY [facility] Last Admin: 11/25/17 09:11 Dose: 325 mg Carvedilol (Coreg) 3.125 mg PO BID [facility] Last Admin: 11/25/17 22:27 Dose: Not Given Celecoxib (Celebrex) 100 mg PO BID [facility] Last Admin: 11/25/17 22:25 Dose: 100 mg Clopidogrel Bisulfate (Plavix) 75 mg PO QDAY [facility] Last Admin: 11/25/17 09:11 Dose: 75 mg Dextrose (D50w (25gm) Syringe) 50 ml IV PRN PRN PRN Reason: Hypoglycemia Famotidine (Pepcid) 20 mg PO BID [facility] Last Admin: 11/25/17 22:26 Dose: 20 mg Piperacillin Sod/Tazobactam Sod (Zosyn/Ns 4.5gm/100ml) 4.5 gm in 100 mls @ 200 mls/hr IV Q8HR INOCENCIA PRN Reason: Protocol Last Admin: 11/26/17 05:57 Dose: 100 mls/hr Vancomycin HCl (Vancomycin/0.45 Ns 1 Gm/250 Ml) 1 gm in 250 mls @ 167.007 mls/ hr IV Q12H [facility] Last Admin: 11/26/17 08:17 Dose: 167.007 mls/hr Cefazolin Sodium (Ancef/Sterile Water 2 Gm/20 Ml) 2 gm in 20 mls @ 80 mls/hr IV PREOP NR PRN Reason: Protocol Stop: 11/26/17 23:00 Insulin Aspart (Novolog) 0 units SUB-Q ACHS INOCENCIA PRN Reason: Protocol Last Admin: 11/26/17 07:30 Dose: Not Given Insulin Human Isoph/Insulin Regular (Novolin 70/30) 15 unit SUB-Q BIDDIAB [facility] Last Admin: 11/26/17 08:38 Dose: Not Given Lorazepam (Ativan) 2 mg IV ONCE [facility] Stop: 11/26/17 23:00 Multivitamins/Minerals (Theragran-M Tab) 1 each PO QDAY [facility] Last Admin: 11/25/17 09:11 Dose: 1 each Ondansetron HCl (Zofran) 4 mg IV Q8H PRN PRN Reason: N/V unrelieved by Reglan Oxycodone HCl (Oxycontin) 10 mg PO Q12HR [facility] Last Admin: 11/25/17 22:25 Dose: 10 mg Venlafaxine HCl (Effexor Xr) 150 mg PO QDAY [facility] Last Admin: 11/25/17 09:12 Dose: 150 mg Review of Systems All systems: negative (see HPI) Exam - Constitutional Vitals: Temp Pulse Resp BP Pulse Ox 98.5 F 60 18 104/67 93 11/26/17 07:46 11/26/17 07:46 11/26/17 07:46 11/26/17 07:46 11/26/17 07:46 General appearance: Present: no acute distress - EENT Eyes: Present: EOM intact ENT: hearing intact - Respiratory Respiratory effort: normal - Extremities Extremities: normal temperature, normal color, abnormal (reviewed wounds images demonstrating right first toe partial gangrene; amputations of many of the toes of his left foot) Extremity abnormal: pulses diminished (nonpalpable pedal pulses none palpable pedal pulses) - Abdominal General gastrointestinal: Present: soft - Psychiatric Psychiatric: appropriate mood/affect, cooperative Results - Labs CBC & Chem 7: 11/26/17 10:45 11/26/17 10:45 Labs: Abnormal lab results 11/25/17 11/25/17 11/26/17 Range/Units 11:54 17:29 06:53 POC Glucose 41 L 206 H 140 H (70-105) - Imaging and Cardiology Venous US: image reviewed (arterial ultrasound) Assessment and Plan 62-year-old male with peripheral vascular disease and diabetes with previous left lower extremity limb salvage and endovascular reconstruction and now presents with right first digit osteomyelitis and gangrene with monophasic flow through the right lower extremity. Made patient nothing by mouth except for meds. Discussed situation with patient. Risks, benefits, and alternatives discussed. Set up for endovascular revascularization.
--- NOTE | 2017-11-26 09:28 | Progress Note ---
<LAKEISHA ZAVALA - Last Filed: 11/26/17 14:05> Assessment and Plan Assessment and plan: 62 YO Male with DM, Diabetic Neuropathy, HTN, HLD, CAD S/P Stent Placement, CVA with LHP, Methamphetamine Dependence presents to ED for evaluation. Pt states that he has experienced pain in his right foot for the past 1 month. Sepsis Likely secondary to Cellulitis continue IV antibiotic therapy, follow blood cultures urinalysis UTI Order urine culture, continue antibiotics CAD (coronary artery disease) Continue Statin therapy, low cholesterol diet, COPD (chronic obstructive pulmonary disease) supplemental oxygen, nebulizer therapy, NIPPV as clinically indicated. Methamphetamine dependence Supportive care, Pt counseled on cessation Cellulitis of right foot IV abx, IVF, supportive care x-ray showed Findings are consistent with osteomyelitis with destruction of the distal half of 1st distal phalanx. RLE ARTERIAL DUPLEX DONE.MONOPHASIC WAVEFORMS OBTAINED THROUGHOUT RLE VESSELS FROM INFLOW TO OUTFLOW General and vascular surgeons and ID following DVT prophylaxis SCDs History Interval history: Patient seen and examined. He denies chest pain, shortness of breath, nausea vomiting. He continues to complain of right foot pain. He states that he wants to go home. Labs and nursing notes reviewed Hospitalist Physical - Constitutional Vitals: Temp Pulse Resp BP Pulse Ox 98.5 F 60 18 104/67 93 11/26/17 07:46 11/26/17 07:46 11/26/17 07:46 11/26/17 07:46 11/26/17 07:46 General appearance: Present: no acute distress, disheveled, malodorous - EENT Eyes: Present: PERRL, EOM intact ENT: hearing intact, clear oral mucosa - Neck Neck: Present: supple, normal ROM - Respiratory Respiratory effort: normal Respiratory: bilateral: CTA - Cardiovascular Rhythm: regular Heart Sounds: Present: S1 & S2 - Extremities Extremities: no ischemia, No edema Extremity abnormal: other (right foot bandaged) - Abdominal General gastrointestinal: soft, non-tender, non-distended - Integumentary Integumentary: Present: clear, warm, dry - Psychiatric Psychiatric: appropriate mood/affect, cooperative - Neurologic Neurologic: CNII-XII intact, moves all extremities - Allied Health Allied health notes reviewed: nursing Results - Labs CBC & Chem 7: 11/26/17 10:45 11/26/17 10:45 Labs: Laboratory Last Values WBC 20.3 K/mm3 (4.5-11.0) H 11/24/17 16:40 RBC 3.17 M/mm3 (3.65-5.03) L 11/24/17 16:40 Hgb 9.5 gm/dl (11.8-15.2) L 11/24/17 16:40 Hct 29.2 % (35.5-45.6) L 11/24/17 16:40 MCV 92 fl (84-94) 11/24/17 16:40 MCH 30 pg (28-32) 11/24/17 16:40 MCHC 32 % (32-34) 11/24/17 16:40 RDW 13.6 % (13.2-15.2) 11/24/17 16:40 Plt Count 324 K/mm3 (140-440) 11/24/17 16:40 Lymph % (Auto) 7.2 % (13.4-35.0) L 11/23/17 14:53 [place] % (Auto) 5.5 % (0.0-7.3) 11/23/17 14:53 Eos % (Auto) 0.2 % (0.0-4.3) 11/23/17 14:53 Baso % (Auto) 0.2 % (0.0-1.8) 11/23/17 14:53 Lymph # 1.3 K/mm3 (1.2-5.4) 11/23/17 14:53 [place] # 1.0 K/mm3 (0.0-0.8) H 11/23/17 14:53 Eos # 0.0 K/mm3 (0.0-0.4) 11/23/17 14:53 Baso # 0.0 K/mm3 (0.0-0.1) 11/23/17 14:53 Add Manual Diff Complete 11/24/17 16:40 Total Counted 100 11/24/17 16:40 Seg Neutrophils % 86.9 % (40.0-70.0) H 11/23/17 14:53 Seg Neuts % (Manual) 79.0 % (40.0-70.0) H 11/24/17 16:40 Band Neutrophils % 0 % 11/24/17 16:40 Lymphocytes % (Manual) 17.0 % (13.4-35.0) 11/24/17 16:40 Reactive Lymphs % (Man) 0 % 11/24/17 16:40 Monocytes % (Manual) 4.0 % (0.0-7.3) 11/24/17 16:40 Eosinophils % (Manual) 0 % (0.0-4.3) 11/24/17 16:40 Basophils % (Manual) 0 % (0.0-1.8) 11/24/17 16:40 Metamyelocytes % 0 % 11/24/17 16:40 Myelocytes % 0 % 11/24/17 16:40 Promyelocytes % 0 % 11/24/17 16:40 Blast Cells % 0 % 11/24/17 16:40 Nucleated RBC % Not Reportable 11/24/17 16:40 Seg Neutrophils # 15.9 K/mm3 (1.8-7.7) H 11/23/17 14:53 Seg Neutrophils # Man 16.0 K/mm3 (1.8-7.7) H 11/24/17 16:40 Band Neutrophils # 0.0 K/mm3 11/24/17 16:40 Lymphocytes # (Manual) 3.5 K/mm3 (1.2-5.4) 11/24/17 16:40 Abs React Lymphs (Man) 0.0 K/mm3 11/24/17 16:40 Monocytes # (Manual) 0.8 K/mm3 (0.0-0.8) 11/24/17 16:40 Eosinophils # (Manual) 0.0 K/mm3 (0.0-0.4) 11/24/17 16:40 Basophils # (Manual) 0.0 K/mm3 (0.0-0.1) 11/24/17 16:40 Metamyelocytes # 0.0 K/mm3 11/24/17 16:40 Myelocytes # 0.0 K/mm3 11/24/17 16:40 Promyelocytes # 0.0 K/mm3 11/24/17 16:40 Blast Cells # 0.0 K/mm3 11/24/17 16:40 WBC Morphology Not Reportable 11/24/17 16:40 Hypersegmented Neuts Not Reportable 11/24/17 16:40 Hyposegmented Neuts Not Reportable 11/24/17 16:40 Hypogranular Neuts Not Reportable 11/24/17 16:40 Smudge Cells Not Reportable 11/24/17 16:40 Toxic Granulation Not Reportable 11/24/17 16:40 Toxic Vacuolation Not Reportable 11/24/17 16:40 Dohle Bodies Not Reportable 11/24/17 16:40 Pelger-Huet Anomaly Not Reportable 11/24/17 16:40 Surendra Rods Not Reportable 11/24/17 16:40 Platelet Estimate Consistent w auto 11/24/17 16:40 Clumped Platelets Few 11/24/17 16:40 Plt Clumps, EDTA Not Reportable 11/24/17 16:40 Large Platelets Not Reportable 11/24/17 16:40 Giant Platelets Not Reportable 11/24/17 16:40 Platelet Satelliting Not Reportable 11/24/17 16:40 Plt Morphology Comment Not Reportable 11/24/17 16:40 RBC Morphology Normal 11/24/17 16:40 Dimorphic RBCs Not Reportable 11/24/17 16:40 Polychromasia Not Reportable 11/24/17 16:40 Hypochromasia Not Reportable 11/24/17 16:40 Poikilocytosis Not Reportable 11/24/17 16:40 Anisocytosis Not Reportable 11/24/17 16:40 Microcytosis Not Reportable 11/24/17 16:40 Macrocytosis Not Reportable 11/24/17 16:40 Spherocytes Not Reportable 11/24/17 16:40 Pappenheimer Bodies Not Reportable 11/24/17 16:40 Sickle Cells Not Reportable 11/24/17 16:40 Target Cells Not Reportable 11/24/17 16:40 Tear Drop Cells Not Reportable 11/24/17 16:40 Ovalocytes Not Reportable 11/24/17 16:40 Helmet Cells Not Reportable 11/24/17 16:[address] [place] Bodies Not Reportable 11/24/17 16:40 [place] Rings Not Reportable 11/24/17 16:40 Fidel Cells Not Reportable 11/24/17 16:40 Bite Cells Not Reportable 11/24/17 16:40 Crenated Cell Not Reportable 11/24/17 16:40 Elliptocytes Not Reportable 11/24/17 16:40 Acanthocytes (Spur) Not Reportable 11/24/17 16:40 Rouleaux Not Reportable 11/24/17 16:40 Hemoglobin C Crystals Not Reportable 11/24/17 16:40 Schistocytes Not Reportable 11/24/17 16:40 Malaria parasites Not Reportable 11/24/17 16:40 ESR > 140.0 mm/Hr (0-20) 11/23/17 14:53 Ellis Bodies Not Reportable 11/24/17 16:40 Hem Pathologist Commnt No 11/24/17 16:40 Sodium 135 mmol/L (137-145) L 11/23/17 14:53 Potassium 4.7 mmol/L (3.6-5.0) 11/23/17 14:53 Chloride 92.4 mmol/L (98-107) L 11/23/17 14:53 Carbon Dioxide 26 mmol/L (22-30) 11/23/17 14:53 Anion Gap 21 mmol/L 11/23/17 14:53 BUN 9 mg/dL (9-20) 11/23/17 14:53 Creatinine 0.7 mg/dL (0.8-1.5) L 11/23/17 14:53 Estimated GFR > 60 ml/min 11/23/17 14:53 BUN/Creatinine Ratio 13 % 11/23/17 14:53 Glucose 221 mg/dL (75-100) H 11/23/17 14:53 POC Glucose 140 (70-105) H 11/26/17 06:53 Hemoglobin A1c 7.6 % (4-6) H 11/24/17 16:40 Lactic Acid 1.30 mmol/L (0.7-2.0) 11/24/17 02:35 Calcium 8.7 mg/dL (8.4-10.2) 11/23/17 14:53 C-Reactive Protein 23.30 mg/dL (0.00-1.30) H 11/24/17 16:40 Urine Color Yellow (Yellow) 11/24/17 04:47 Urine Turbidity Clear (Clear) 11/24/17 04:47 Urine pH 5.0 (5.0-7.0) 11/24/17 04:47 Ur Specific [place] 1.026 (1.003-1.030) 11/24/17 04:47 Urine Protein 30 mg/dl mg/dL (Negative) 11/24/17 04:47 Urine Glucose (UA) 50 mg/dL (Negative) 11/24/17 04:47 Urine Ketones Neg mg/dL (Negative) 11/24/17 04:47 Urine Blood Neg (Negative) 11/24/17 04:47 Urine Nitrite Neg (Negative) 11/24/17 04:47 Urine Bilirubin Neg (Negative) 11/24/17 04:47 Urine Urobilinogen 4.0 mg/dL (<2.0) 11/24/17 04:47 Ur Leukocyte Esterase Tr (Negative) 11/24/17 04:47 Urine WBC (Auto) 9.0 /HPF (0.0-6.0) H 11/24/17 04:47 Urine RBC (Auto) 2.0 /HPF (0.0-6.0) 11/24/17 04:47 U Epithel Cells (Auto) < 1.0 /HPF (0-13.0) 11/24/17 04:47 Urine Mucus Few /HPF 11/24/17 04:47 Vancomycin Trough 16.6 ug/mL (5.0-20.0) 11/26/17 07:48 Urine Opiates Screen Presumptive negative 11/24/17 04:46 Urine Methadone Screen Presumptive negative 11/24/17 04:46 Ur Barbiturates Screen Presumptive negative 11/24/17 04:46 Ur Phencyclidine Scrn Presumptive negative 11/24/17 04:46 Ur Amphetamines Screen Presumptive positive 11/24/17 04:46 U Benzodiazepines Scrn Presumptive negative 11/24/17 04:46 Urine Cocaine Screen Presumptive negative 11/24/17 04:46 U Marijuana (THC) Screen Presumptive negative 11/24/17 04:46 Drugs of Abuse Note Disclamer 11/24/17 04:46 <ROSALINE WILEY - Last Filed: 11/26/17 17:52> Assessment and Plan Assessment and plan: I saw and evaluated the patient. I agree with the findings and the plan of care as documented in the PA's~note, with the following corrections and additions. Angiography noted. will monitor closely. Patient has a significant hx of active MET use and this will preclud sending patient home with any form of IV meds. will review with surgery if surgical cure is most appropriate. Hospitalist Physical - Constitutional Vitals: Temp Pulse Resp BP Pulse Ox 98.5 F 60 18 104/67 93 11/26/17 07:46 11/26/17 07:46 11/26/17 07:46 11/26/17 07:46 11/26/17 07:46 Results - Labs CBC & Chem 7: 11/26/17 10:45 11/26/17 10:45 Labs: Laboratory Last Values WBC 20.4 K/mm3 (4.5-11.0) H 11/26/17 10:45 RBC 3.20 M/mm3 (3.65-5.03) L 11/26/17 10:45 Hgb 9.7 gm/dl (11.8-15.2) L 11/26/17 10:45 Hct 28.8 % (35.5-45.6) L 11/26/17 10:45 MCV 90 fl (84-94) 11/26/17 10:45 MCH 30 pg (28-32) 11/26/17 10:45 MCHC 34 % (32-34) 11/26/17 10:45 RDW 14.0 % (13.2-15.2) 11/26/17 10:45 Plt Count 348 K/mm3 (140-440) 11/26/17 10:45 Lymph % (Auto) 7.2 % (13.4-35.0) L 11/23/17 14:53 [place] % (Auto) 5.5 % (0.0-7.3) 11/23/17 14:53 Eos % (Auto) 0.2 % (0.0-4.3) 11/23/17 14:53 Baso % (Auto) 0.2 % (0.0-1.8) 11/23/17 14:53 Lymph # 1.3 K/mm3 (1.2-5.4) 11/23/17 14:53 [place] # 1.0 K/mm3 (0.0-0.8) H 11/23/17 14:53 Eos # 0.0 K/mm3 (0.0-0.4) 11/23/17 14:53 Baso # 0.0 K/mm3 (0.0-0.1) 11/23/17 14:53 Add Manual Diff Complete 11/26/17 10:45 Total Counted 100 11/26/17 10:45 Seg Neutrophils % 86.9 % (40.0-70.0) H 11/23/17 14:53 Seg Neuts % (Manual) 93.0 % (40.0-70.0) H 11/26/17 10:45 Band Neutrophils % 1.0 % 11/26/17 10:45 Lymphocytes % (Manual) 5.0 % (13.4-35.0) L 11/26/17 10:45 Reactive Lymphs % (Man) 0 % 11/26/17 10:45 Monocytes % (Manual) 1.0 % (0.0-7.3) 11/26/17 10:45 Eosinophils % (Manual) 0 % (0.0-4.3) 11/26/17 10:45 Basophils % (Manual) 0 % (0.0-1.8) 11/26/17 10:45 Metamyelocytes % 0 % 11/26/17 10:45 Myelocytes % 0 % 11/26/17 10:45 Promyelocytes % 0 % 11/26/17 10:45 Blast Cells % 0 % 11/26/17 10:45 Nucleated RBC % Not Reportable 11/26/17 10:45 Seg Neutrophils # 15.9 K/mm3 (1.8-7.7) H 11/23/17 14:53 Seg Neutrophils # Man 19.0 K/mm3 (1.8-7.7) H 11/26/17 10:45 Band Neutrophils # 0.2 K/mm3 11/26/17 10:45 Lymphocytes # (Manual) 1.0 K/mm3 (1.2-5.4) L 11/26/17 10:45 Abs React Lymphs (Man) 0.0 K/mm3 11/26/17 10:45 Monocytes # (Manual) 0.2 K/mm3 (0.0-0.8) 11/26/17 10:45 Eosinophils # (Manual) 0.0 K/mm3 (0.0-0.4) 11/26/17 10:45 Basophils # (Manual) 0.0 K/mm3 (0.0-0.1) 11/26/17 10:45 Metamyelocytes # 0.0 K/mm3 11/26/17 10:45 Myelocytes # 0.0 K/mm3 11/26/17 10:45 Promyelocytes # 0.0 K/mm3 11/26/17 10:45 Blast Cells # 0.0 K/mm3 11/26/17 10:45 WBC Morphology Not Reportable 11/26/17 10:45 Hypersegmented Neuts Not Reportable 11/26/17 10:45 Hyposegmented Neuts Not Reportable 11/26/17 10:45 Hypogranular Neuts Not Reportable 11/26/17 10:45 Smudge Cells Not Reportable 11/26/17 10:45 Toxic Granulation Not Reportable 11/26/17 10:45 Toxic Vacuolation Not Reportable 11/26/17 10:45 Dohle Bodies Not Reportable 11/26/17 10:45 Pelger-Huet Anomaly Not Reportable 11/26/17 10:45 Surendra Rods Not Reportable 11/26/17 10:45 Platelet Estimate Appears normal 11/26/17 10:45 Clumped Platelets Not Reportable 11/26/17 10:45 Plt Clumps, EDTA Not Reportable 11/26/17 10:45 Large Platelets Not Reportable 11/26/17 10:45 Giant Platelets Not Reportable 11/26/17 10:45 Platelet Satelliting Not Reportable 11/26/17 10:45 Plt Morphology Comment Not Reportable 11/26/17 10:45 RBC Morphology Not Reportable 11/26/17 10:45 Dimorphic RBCs Not Reportable 11/26/17 10:45 Polychromasia Not Reportable 11/26/17 10:45 Hypochromasia Not Reportable 11/26/17 10:45 Poikilocytosis Not Reportable 11/26/17 10:45 Anisocytosis 1+ 11/26/17 10:45 Microcytosis Not Reportable 11/26/17 10:45 Macrocytosis Not Reportable 11/26/17 10:45 Spherocytes Not Reportable 11/26/17 10:45 Pappenheimer Bodies Not Reportable 11/26/17 10:45 Sickle Cells Not Reportable 11/26/17 10:45 Target Cells Not Reportable 11/26/17 10:45 Tear Drop Cells Not Reportable 11/26/17 10:45 Ovalocytes Few 11/26/17 10:45 Helmet Cells Not Reportable 11/26/17 10:[address] [place] Bodies Not Reportable 11/26/17 10:45 [place] Rings Not Reportable 11/26/17 10:45 Fidel Cells Not Reportable 11/26/17 10:45 Bite Cells Not Reportable 11/26/17 10:45 Crenated Cell Not Reportable 11/26/17 10:45 Elliptocytes Not Reportable 11/26/17 10:45 Acanthocytes (Spur) Not Reportable 11/26/17 10:45 Rouleaux Not Reportable 11/26/17 10:45 Hemoglobin C Crystals Not Reportable 11/26/17 10:45 Schistocytes Not Reportable 11/26/17 10:45 Malaria parasites Not Reportable 11/26/17 10:45 ESR > 140.0 mm/Hr (0-20) 11/23/17 14:53 Ellis Bodies Not Reportable 11/26/17 10:45 Hem Pathologist Commnt No 11/26/17 10:45 Sodium 141 mmol/L (137-145) 11/26/17 10:45 Potassium 3.9 mmol/L (3.6-5.0) 11/26/17 10:45 Chloride 97.8 mmol/L (98-107) L 11/26/17 10:45 Carbon Dioxide 25 mmol/L (22-30) 11/26/17 10:45 Anion Gap 22 mmol/L 11/26/17 10:45 BUN 12 mg/dL (9-20) 11/26/17 10:45 Creatinine 0.7 mg/dL (0.8-1.5) L 11/26/17 10:45 Estimated GFR > 60 ml/min 11/26/17 10:45 BUN/Creatinine Ratio 17 % 11/26/17 10:45 Glucose 126 mg/dL (75-100) H 11/26/17 10:45 POC Glucose 121 (70-105) H 11/26/17 16:46 Hemoglobin A1c 7.6 % (4-6) H 11/24/17 16:40 Lactic Acid 1.30 mmol/L (0.7-2.0) 11/24/17 02:35 Calcium 8.5 mg/dL (8.4-10.2) 11/26/17 10:45 C-Reactive Protein 23.30 mg/dL (0.00-1.30) H 11/24/17 16:40 Urine Color Yellow (Yellow) 11/24/17 04:47 Urine Turbidity Clear (Clear) 11/24/17 04:47 Urine pH 5.0 (5.0-7.0) 11/24/17 04:47 Ur Specific [place] 1.026 (1.003-1.030) 11/24/17 04:47 Urine Protein 30 mg/dl mg/dL (Negative) 11/24/17 04:47 Urine Glucose (UA) 50 mg/dL (Negative) 11/24/17 04:47 Urine Ketones Neg mg/dL (Negative) 11/24/17 04:47 Urine Blood Neg (Negative) 11/24/17 04:47 Urine Nitrite Neg (Negative) 11/24/17 04:47 Urine Bilirubin Neg (Negative) 11/24/17 04:47 Urine Urobilinogen 4.0 mg/dL (<2.0) 11/24/17 04:47 Ur Leukocyte Esterase Tr (Negative) 11/24/17 04:47 Urine WBC (Auto) 9.0 /HPF (0.0-6.0) H 11/24/17 04:47 Urine RBC (Auto) 2.0 /HPF (0.0-6.0) 11/24/17 04:47 U Epithel Cells (Auto) < 1.0 /HPF (0-13.0) 11/24/17 04:47 Urine Mucus Few /HPF 11/24/17 04:47 Vancomycin Trough 16.6 ug/mL (5.0-20.0) 11/26/17 07:48 Urine Opiates Screen Presumptive negative 11/24/17 04:46 Urine Methadone Screen Presumptive negative 11/24/17 04:46 Ur Barbiturates Screen Presumptive negative 11/24/17 04:46 Ur Phencyclidine Scrn Presumptive negative 11/24/17 04:46 Ur Amphetamines Screen Presumptive positive 11/24/17 04:46 U Benzodiazepines Scrn Presumptive negative 11/24/17 04:46 Urine Cocaine Screen Presumptive negative 11/24/17 04:46 U Marijuana (THC) Screen Presumptive negative 11/24/17 04:46 Drugs of Abuse Note Disclamer 11/24/17 04:46
[2017-11-26] MEDS: OxyCONTIN PO SCH ×2 (10:00→22:52)
[2017-11-26] MEDS: ASPIRIN PO SCH (10:00)
[2017-11-26] MEDS: PEPCID PO SCH ×2 (10:00→22:52)
[2017-11-26] MEDS: COREG PO SCH ×2 (10:00→22:53)
[2017-11-26] MEDS: EFFEXOR XR PO SCH (10:00)
[2017-11-26] MEDS: THERAGRAN-M Tab PO SCH (10:00)
[2017-11-26] MEDS: PLAVIX PO SCH (10:00)
--- NOTE | 2017-11-26 10:04 | Progress Note ---
Assessment and Plan Assessment: 1) Sepsis: Still hypotension, leukocytosis. Etiology most likely cellulitis of right foot -CRP = 23.30 -blood culture 11/23 negative 2) Diabetic foot ulcer right great toe with cellulitis, presumed osteomyelitis; r/o abscess -Right foot with erythema of the great toe extension to the dorsal surface of the foot with tenderness to palpation and mild swelling. -Foot X-Ray findings are consistent with osteomyelitis with destruction of the distal half of the 1st distal phalanx 3) Diabetes; uncontrolled 4) CAD 5) COPD 6) Acute [place] 7) hypertension; stable 8) seizures, stroke 9) PVD 10) Methamphetamine dependence Plan: -continue zosyn and vanco day 4 -Dr. Bajwa, Arterial dopplers of RLE (Preliminary report indicates monophasic flow throughout the RLE. Will likely need a Vascular consultation.) -recommend wound care Thank you Dr. Batista for your consultation, will follow up with you. Dean Cox NP for Dr. Nicci Vera MD Infectious Diseases Specialist [facility] ([facility]) M [phone] O [phone] Subjective Date of service: 11/26/17 Principal diagnosis: cellulitis Interval history: I just want to go home Microbiology: Blood cultures: 11/23 ngtd Urine cultures: 11/24 ngtd Current Antimicrobials: Zosyn 11/23 Vancomycin 11/23 Previous Antimicrobials: Objective - Exam Narrative Exam: General appearance: Alert in NAD, conversant Eyes: anicteric sclerae, moist conjunctivae; no lid-lag; PERRLA HENT: Atraumatic; oropharynx clear Neck: Trachea midline; supple, no thyromegaly or lymphadenopathy Lungs: CTAB CV: RRR S1 S2 Abdomen: firm and tense + RUQ tenderness; +hepatosplenomegaly Extremities: Right foot with erythema of the great toe extension to the dorsal surface of the foot with tenderness to palpation. Mild swelling. 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 Moving all extermities Lines: No CVL / PICC - Constitutional Vitals: Vital Signs Temp Pulse Resp BP Pulse Ox 98.5 F 60 18 104/67 93 11/26/17 07:46 11/26/17 07:46 11/26/17 07:46 11/26/17 07:46 11/26/17 07:46 Temperature -Last 24 Hours Temperature 98.5 F Temperature 97.6 F Temperature 99.0 F Temperature 98.0 F - Labs CBC & Chem 7: 11/24/17 16:40 11/23/17 14:53 Labs: Abnormal lab results 11/25/17 11/25/17 11/26/17 Range/Units 11:54 17:29 06:53 POC Glucose 41 L 206 H 140 H (70-105)
[2017-11-26 11:18] LABS: Hematocrit 28.8 % (35.5-45.6); Hemoglobin 9.7 gm/dl (11.8-15.2); Mean Corpuscular HGB Conc 34 % (32-34); Mean Corpuscular Hemoglobin 30 pg (28-32); Mean Corpuscular Volume 90 fl (84-94); Platelet Count 348 K/mm3 (140-440)
[2017-11-26 11:33] LABS: BUN/Creatinine Ratio 17; Blood Urea Nitrogen 12 mg/dL (9-20); Calcium 8.5 mg/dL (8.4-10.2); Hemolysis Index 2
--- NOTE | 2017-11-26 11:36 | Vascular Lab Report ---
LOWER EXTREMITY ARTERIAL DUPLEX: REASON FOR EXAM: Right great toe ulcer. COMMENTS ON THE RIGHT: Monophasic waveforms are seen proximally. Monophasic waveforms are seen distally. Scattered plaque is seen throughout. Findings there is consistent with aortoiliac inflow disease. Findings are consistent with abnormal perfusion. Findings are not consistent with the ability to heal distal wounds. COMMENTS ON THE LEFT: A limited study was done of the left lower extremity. Biphasic arterial waveforms are seen distally. Flow velocities are mildly low. IMPRESSION: RIGHT: Monophasic flow throughout the arterial system of the right lower extremity consistent with aortoiliac inflow disease. Findings are consistent with the inability to heal distal wounds. LEFT:Evidence of decreased arterial flow distally.
[2017-11-26 12:06] LABS: Band Neutrophils # (Manual) 0.2 K/mm3; Basophils % (Manual) 0 % (0.0-1.8); Eosinophils % (Manual) 0 % (0.0-4.3); Total Cells Counted 100
[2017-11-26 12:07] LABS: Anisocytosis 1+; Ovalocytes Few
[2017-11-26] MEDS: SUBLIMAZE ONE ×5 (13:18→14:55)
[2017-11-26] MEDS: VERSED IV ONE ×5 (13:18→14:55)
[2017-11-26] MEDS ORDERED: HEPARIN/NS 5000 UNIT/500ML(CATH LAB) 1,000 ML IR ONE (13:24)
[2017-11-26] MEDS ORDERED: HEPARIN 10,000 UNITS/10 ML ONE (13:24)
[2017-11-26] MEDS ORDERED: XYLOCAINE 2% INFILTRATI ONE (13:25)
[2017-11-26] MEDS ORDERED: NACL 0.9% 500 ML 500 ML ONE ×2 (13:26→14:37)
[2017-11-26] MEDS ORDERED: ANCEF/STERILE WATER 2 GM/20 ML 2 GM/20 ML SYRINGE IV ONE (13:28)
[2017-11-26] MEDS ORDERED: NACL 0.9% 1000 ML 1,000 ML ONE (14:14)
[2017-11-26] MEDS ORDERED: NITROGLYCERIN SYRINGE 3 ML ONE ×2 (15:14)
[2017-11-26] MEDS ORDERED: HEPARIN/NS 5000 UNIT/500ML(CATH LAB) 500 ML IR ONE (15:26)
--- NOTE | 2017-11-26 15:48 | Post Operative Note ---
Date of procedure: 11/26/17 Pre-op diagnosis: CLI right lower extremity Post-op diagnosis: same Procedure: 1. Ultrasound-guided axis of the left common femoral artery 2. Angiography of the left lower extremity 3. Selection of the abdominal aorta with angiography 4. Selection of the right external iliac artery with angiography of the right lower extremity. 5. Selection of the right superficial femoral artery and popliteal artery with angiography of the right lower extremity 6. Selection of the right posterior tibial artery with angiography of the right lower extremity 7. Jet stream atherectomy 2.1-3.1 millimeter with atherectomy of the right distal superficial femoral artery 8. Angioplasty of the right superficial femoral artery with a 5 mm angioplasty with a 9. Angioplasty of the right superficial femoral artery with a 6 mm x 150 mm impact drug coated below 10. Angioplasty of the right posterior tibial artery with a 2.5-3.5 mm angioplasty balloon 11. Selection of the right dorsalis pedis artery/anterior tibial artery with angiography 12. Injection of a total of 800 micrograms nitroglycerin into the right anterior tibial artery 13. Angioplasty of the right anterior tibial artery and dorsalis pedis artery with a 1.5-2 mm angioplasty balloon 14. Closure of the arteriotomy with a 6 [place] Pro-glide device Anesthesia: local (w/ conscious sedation) Surgeon: REJI MOMIN Estimated blood loss: minimal Condition: stable Disposition: floor
--- NOTE | 2017-11-26 16:08 | Operative Report ---
Operative Report Operative Report: EXAM: 1. Ultrasound-guided access of the left common femoral artery 2. Angiography of the left lower extremity 3. Selection of the abdominal aorta with angiography 4. Selection of the right external iliac artery with angiography of the right lower extremity. 5. Selection of the right superficial femoral artery and popliteal artery with angiography of the right lower extremity 6. Selection of the right posterior tibial artery with angiography of the right lower extremity 7. Jet stream atherectomy 2.1-3.1 millimeter with atherectomy of the right distal superficial femoral artery 8. Angioplasty of the right superficial femoral artery with a 5 mm angioplasty balloon 9. Angioplasty of the right superficial femoral artery with a 6 mm x 150 mm inpact drug coated balloon 10. Angioplasty of the right posterior tibial artery with a 2.5-3 mm angioplasty balloon 11. Selection of the right dorsalis pedis artery/anterior tibial artery with angiography 12. Injection of a total of 800 micrograms nitroglycerin into the right anterior tibial artery 13. Angioplasty of the right anterior tibial artery and dorsalis pedis artery with a 1.5-2 mm angioplasty balloon 14. Closure of the arteriotomy with a 6 [place] Pro-glide device DATE: 11/26/17 MARKET RESEARCH LEAD: REJI MOMIN MD INDICATION: 62-year-old male with peripheral vascular disease and right lower extremity critical limb ischemia with gangrene of the right first digit MEDICATIONS: Please see nursing report for full details. DEVICES: 2.1-3.1 jet stream atherectomy device 5 mm angioplasty balloon 6 mm x 150 mm INPACT DCB 2.5-3 mm nanocross angioplasty balloon 1.5-2 mm nanocross angioplasty balloon CONTRAST: 175 mL of nonionic contrast PROCEDURE: The risks, benefits, and alternatives were discussed with the patient; written informed consent was obtained. The groins were prepped and draped in a sterile fashion. The left common femoral artery was evaluated under ultrasound was patent. Under direct ultrasound guidance, the left common femoral artery was accessed with a 21- gauge micro-puncture needle. 0.018 inch wire was passed through the needle into the aorta. Needle was exchanged for transitional dilator. Wire was exchanged for 0.035 inch wire. Transitional dilator was exchanged for a 5 [place] sheath. Digital subtraction angiography was performed demonstrating an appropriate puncture, above the bifurcation below the inferior epigastric artery. The common femoral artery, proximal superficial femoral artery, profunda femoral artery, and distal external iliac artery were patent. Omni flush cath was advanced over the 0.035 inch wire used to select the abdominal aorta. Digital subtraction angiography was performed demonstrating mild bilateral common iliac artery narrowing. The bilateral external iliac arteries were patent. The right external iliac artery was selected and digital subtraction angiography was performed demonstrating mild to moderate narrowing of the right SFA ostium with mild narrowing of the distal right common femoral artery and proximal right superficial femoral artery. Superficial femoral artery was selected and digital subtraction angiography demonstrated patency of the right mid superficial femoral artery. The right distal superficial femoral artery was occluded with reconstitution at the above-knee popliteal artery. The above- knee popliteal artery had a focal moderate narrowing. The mid popliteal artery and distal popliteal artery were patent. The tibioperoneal trunk and peroneal artery were patent. The anterior tibial artery had multifocal mild narrowings within it, and diminutive flow into the dorsalis pedis artery afterwards. This was due to the small caliber of the vessels arising from the dorsalis pedis in the dorsalis pedis itself. The posterior tibial artery proximally was a string sign, but the midportion of the vessel distal portion of vessel were patent. There is robust flow into the foot the posterior tibial artery. The patient was heparinized. Sheath was exchanged for a 7 [place] 45 cm [place] destination. Using an angled catheter and a V18, the superficial femoral artery occlusion was crossed and the posterior tibial artery was crossed. Digital subtraction angiography was performed in the posterior tibial artery confirming position. Through way wire was passed into the posterior tibial artery. 2.1-3.1 jet stream atherectomy device was used to perform atherectomy of the superficial femoral artery occlusion multiple times before penetrating the distal cap. Digital traction angiography was performed demonstrating no extravasation or pseudoaneurysm. 2.5-3 mm tapered angioplasty balloon was used to perform angioplasty of the posterior tibial artery. Then 5 mm angioplasty balloon was used to perform angioplasty of the superficial femoral artery and above the knee popliteal artery. 6 mm drug coated balloon was as used to perform angioplasty of the superficial femoral artery and above-knee popliteal artery. Digital subtraction angiography was performed demonstrating no residual narrowing of the superficial femoral artery or above-knee popliteal artery. The rest of the popliteal artery was patent. There is mild residual narrowing of the proximal posterior tibial artery. The rest of the peroneal artery and posterior tibial artery were patent. Unfortunately there was a slight sluggish flow in the anterior tibial artery. I then selected the anterior tibial artery and digital subtraction angiography was performed demonstrating a focal embolization in the distal aspect of the vessel near the dorsalis pedis artery. I attempted to aspirate the focal emboli with a catheter in the distal anterior tibial artery, but this did not aspirate any debris. I then selected the dorsalis pedis artery and perform digital subtraction angiography confirming position. Wire was passed through the vessel. Tapered 1.5-2 mm angioplasty balloon was used to perform angioplasty of the dorsalis pedis into the anterior tibial artery. Using a Via6 device digital subtraction angiography was performed demonstrating spasm of the dorsalis pedis artery. Wire was removed and multiple injections of nitroglycerin to the catheter were performed. Digital subtraction angiography now demonstrated prompt flow into the dorsalis pedis artery with resolution of the focal embolization. At this point, all wires, catheters, and sheaths were retracted into the left external iliac artery. Perclose device was used to close the arteriotomy. Pressure dressing applied. Patient tolerated the procedure well. No immediate postprocedural complication. FINDINGS: Please see above in procedural findings IMPRESSION: 1. Successful aortography with bilateral lower extremity angiography 2. Successful angioplasty and atherectomy of the right superficial femoral artery and above the knee popliteal artery 3. Successful angioplasty of the right posterior tibial artery and dorsalis pedis/anterior tibial artery.
[2017-11-27] MEDS: ZOSYN/NS 4.5GM/100ML 4.5 GM/100 ML VIAL IV SCH ×3 (06:13→21:31)
[2017-11-27] MEDS: NORCO 5/325 PO PRN (06:17)
[2017-11-27 06:37] LABS: Hematocrit 28.7 % (35.5-45.6); Hemoglobin 9.7 gm/dl (11.8-15.2); Mean Corpuscular HGB Conc 34 % (32-34); Mean Corpuscular Hemoglobin 30 pg (28-32); Mean Corpuscular Volume 90 fl (84-94); Platelet Count 364 K/mm3 (140-440); Red Cell Distribution Width 13.8 % (13.2-15.2)
[2017-11-27 06:55] LABS: BUN/Creatinine Ratio 13; Blood Urea Nitrogen 9 mg/dL (9-20); Calcium 8.4 mg/dL (8.4-10.2); Hemolysis Index 4
[2017-11-27] MEDS: NOVOLOG SUB-Q SCH ×3 (07:51→16:30)
[2017-11-27] MEDS: VANCOMYCIN/0.45 NS 1 GM/250 ML 1 GM/250 ML BAG IV SCH ×2 (08:11→21:21)
[2017-11-27] MEDS: EFFEXOR XR PO SCH (10:11)
[2017-11-27] MEDS: OxyCONTIN PO SCH ×2 (10:13→21:28)
[2017-11-27] MEDS: PEPCID PO SCH ×2 (10:13→21:28)
[2017-11-27] MEDS: COREG PO SCH ×2 (10:14→21:28)
[2017-11-27] MEDS: THERAGRAN-M Tab PO SCH (10:14)
[2017-11-27] MEDS: PLAVIX PO SCH (10:14)
[2017-11-27] MEDS: ASPIRIN PO SCH (10:25)
--- NOTE | 2017-11-27 14:59 | Progress Note ---
Assessment and Plan - Patient Problems (1) Cellulitis of right foot Current Visit: Yes Status: Acute Plan to address problem: S/p revascularization of RLE w excellent technical result. Continue wound care. Subjective Date of service: 11/27/17 Principal diagnosis: cellulitis Interval history: No new complaints. Objective - Constitutional Vitals: Vital Signs - 12hr 11/27/17 11/27/17 11/27/17 07:44 10:12 10:13 Temperature 98.3 F Pulse Rate 66 Respiratory 18 20 20 Rate Blood Pressure 102/43 O2 Sat by Pulse 95 Oximetry 11/27/17 10:14 Temperature Pulse Rate 66 Respiratory Rate Blood Pressure O2 Sat by Pulse Oximetry General appearance: Present: no acute distress Extremity abnormal: other (right leg warm and well perfused) - Peripheral pulses popliteal Pulse Strength: 2+ (right) - Labs CBC & Chem 7: 11/27/17 06:02 11/27/17 06:02 Labs: Abnormal lab results 11/26/17 11/27/17 11/27/17 Range/Units 16:46 06:02 06:02 WBC 15.3 H (4.5-11.0) K/mm3 RBC 3.20 L (3.65-5.03) M/mm3 Hgb 9.7 L (11.8-15.2) gm/dl Hct 28.7 L (35.5-45.6) % Chloride 97.6 L (98-107) mmol/L Creatinine 0.7 L (0.8-1.5) mg/dL POC Glucose 121 H (70-105) 11/27/17 11/27/17 Range/Units 07:41 12:25 WBC (4.5-11.0) K/mm3 RBC (3.65-5.03) M/mm3 Hgb (11.8-15.2) gm/dl Hct (35.5-45.6) % Chloride (98-107) mmol/L Creatinine (0.8-1.5) mg/dL POC Glucose 129 H 277 H (70-105)
--- NOTE | 2017-11-27 17:49 | Progress Note ---
Assessment and Plan Assessment and plan: 62 YO Male with DM, Diabetic Neuropathy, HTN, HLD, CAD S/P Stent Placement, CVA with LHP, Methamphetamine Dependence presents to ED for evaluation. Pt states that he has experienced pain in his right foot for the past 1 month. Sepsis Likely secondary to Cellulitis continue IV antibiotic therapy, follow blood cultures urinalysis UTI Order urine culture, continue antibiotics CAD (coronary artery disease) Continue Statin therapy, low cholesterol diet, COPD (chronic obstructive pulmonary disease) supplemental oxygen, nebulizer therapy, NIPPV as clinically indicated. Methamphetamine dependence Supportive care, Pt counseled on cessation 15 mins spent. This precludes sending patient home with IV acceess Cellulitis of right foot IV abx, IVF, supportive care x-ray showed Findings are consistent with osteomyelitis with destruction of the distal half of 1st distal phalanx. RLE ARTERIAL DUPLEX DONE.MONOPHASIC WAVEFORMS OBTAINED THROUGHOUT RLE VESSELS FROM INFLOW TO OUTFLOW General and vascular surgeons and ID following May require ampuation DVT prophylaxis SCDs History Interval history: Patient seen and examined, in no acute distress. Hospitalist Physical - Physical exam Narrative exam: General appearance: Present: no acute distress, disheveled, malodorous - EENT Eyes: Present: PERRL, EOM intact ENT: hearing intact, clear oral mucosa - Neck Neck: Present: supple, normal ROM - Respiratory Respiratory effort: normal Respiratory: bilateral: CTA - Cardiovascular Rhythm: regular Heart Sounds: Present: S1 & S2 - Extremities Extremities:ischemia left large toe, No edema Extremity abnormal: other (leftvfoot bandaged) - Abdominal General gastrointestinal: soft, non-tender, non-distended - Integumentary Integumentary: Present: clear, warm, dry - Psychiatric Psychiatric: appropriate mood/affect, cooperative - Neurologic Neurologic: CNII-XII intact, moves all extremities - Allied Health Allied health notes reviewed: nursing - Constitutional Vitals: Temp Pulse Resp BP Pulse Ox 98.1 F 66 16 101/62 95 11/27/17 15:41 11/27/17 10:14 11/27/17 15:41 11/27/17 15:41 11/27/17 07:44 General appearance: Present: no acute distress Results - Labs CBC & Chem 7: 11/27/17 06:02 11/27/17 06:02 Labs: Laboratory Last Values WBC 15.3 K/mm3 (4.5-11.0) H 11/27/17 06:02 RBC 3.20 M/mm3 (3.65-5.03) L 11/27/17 06:02 Hgb 9.7 gm/dl (11.8-15.2) L 11/27/17 06:02 Hct 28.7 % (35.5-45.6) L 11/27/17 06:02 MCV 90 fl (84-94) 11/27/17 06:02 MCH 30 pg (28-32) 11/27/17 06:02 MCHC 34 % (32-34) 11/27/17 06:02 RDW 13.8 % (13.2-15.2) 11/27/17 06:02 Plt Count 364 K/mm3 (140-440) 11/27/17 06:02 Lymph % (Auto) 7.2 % (13.4-35.0) L 11/23/17 14:53 [place] % (Auto) 5.5 % (0.0-7.3) 11/23/17 14:53 Eos % (Auto) 0.2 % (0.0-4.3) 11/23/17 14:53 Baso % (Auto) 0.2 % (0.0-1.8) 11/23/17 14:53 Lymph # 1.3 K/mm3 (1.2-5.4) 11/23/17 14:53 [place] # 1.0 K/mm3 (0.0-0.8) H 11/23/17 14:53 Eos # 0.0 K/mm3 (0.0-0.4) 11/23/17 14:53 Baso # 0.0 K/mm3 (0.0-0.1) 11/23/17 14:53 Add Manual Diff Complete 11/26/17 10:45 Total Counted 100 11/26/17 10:45 Seg Neutrophils % 86.9 % (40.0-70.0) H 11/23/17 14:53 Seg Neuts % (Manual) 93.0 % (40.0-70.0) H 11/26/17 10:45 Band Neutrophils % 1.0 % 11/26/17 10:45 Lymphocytes % (Manual) 5.0 % (13.4-35.0) L 11/26/17 10:45 Reactive Lymphs % (Man) 0 % 11/26/17 10:45 Monocytes % (Manual) 1.0 % (0.0-7.3) 11/26/17 10:45 Eosinophils % (Manual) 0 % (0.0-4.3) 11/26/17 10:45 Basophils % (Manual) 0 % (0.0-1.8) 11/26/17 10:45 Metamyelocytes % 0 % 11/26/17 10:45 Myelocytes % 0 % 11/26/17 10:45 Promyelocytes % 0 % 11/26/17 10:45 Blast Cells % 0 % 11/26/17 10:45 Nucleated RBC % Not Reportable 11/26/17 10:45 Seg Neutrophils # 15.9 K/mm3 (1.8-7.7) H 11/23/17 14:53 Seg Neutrophils # Man 19.0 K/mm3 (1.8-7.7) H 11/26/17 10:45 Band Neutrophils # 0.2 K/mm3 11/26/17 10:45 Lymphocytes # (Manual) 1.0 K/mm3 (1.2-5.4) L 11/26/17 10:45 Abs React Lymphs (Man) 0.0 K/mm3 11/26/17 10:45 Monocytes # (Manual) 0.2 K/mm3 (0.0-0.8) 11/26/17 10:45 Eosinophils # (Manual) 0.0 K/mm3 (0.0-0.4) 11/26/17 10:45 Basophils # (Manual) 0.0 K/mm3 (0.0-0.1) 11/26/17 10:45 Metamyelocytes # 0.0 K/mm3 11/26/17 10:45 Myelocytes # 0.0 K/mm3 11/26/17 10:45 Promyelocytes # 0.0 K/mm3 11/26/17 10:45 Blast Cells # 0.0 K/mm3 11/26/17 10:45 WBC Morphology Not Reportable 11/26/17 10:45 Hypersegmented Neuts Not Reportable 11/26/17 10:45 Hyposegmented Neuts Not Reportable 11/26/17 10:45 Hypogranular Neuts Not Reportable 11/26/17 10:45 Smudge Cells Not Reportable 11/26/17 10:45 Toxic Granulation Not Reportable 11/26/17 10:45 Toxic Vacuolation Not Reportable 11/26/17 10:45 Dohle Bodies Not Reportable 11/26/17 10:45 Pelger-Huet Anomaly Not Reportable 11/26/17 10:45 Surendra Rods Not Reportable 11/26/17 10:45 Platelet Estimate Appears normal 11/26/17 10:45 Clumped Platelets Not Reportable 11/26/17 10:45 Plt Clumps, EDTA Not Reportable 11/26/17 10:45 Large Platelets Not Reportable 11/26/17 10:45 Giant Platelets Not Reportable 11/26/17 10:45 Platelet Satelliting Not Reportable 11/26/17 10:45 Plt Morphology Comment Not Reportable 11/26/17 10:45 RBC Morphology Not Reportable 11/26/17 10:45 Dimorphic RBCs Not Reportable 11/26/17 10:45 Polychromasia Not Reportable 11/26/17 10:45 Hypochromasia Not Reportable 11/26/17 10:45 Poikilocytosis Not Reportable 11/26/17 10:45 Anisocytosis 1+ 11/26/17 10:45 Microcytosis Not Reportable 11/26/17 10:45 Macrocytosis Not Reportable 11/26/17 10:45 Spherocytes Not Reportable 11/26/17 10:45 Pappenheimer Bodies Not Reportable 11/26/17 10:45 Sickle Cells Not Reportable 11/26/17 10:45 Target Cells Not Reportable 11/26/17 10:45 Tear Drop Cells Not Reportable 11/26/17 10:45 Ovalocytes Few 11/26/17 10:45 Helmet Cells Not Reportable 11/26/17 10:45 [place] Bodies Not Reportable 11/26/17 10:45 [place] Rings Not Reportable 11/26/17 10:45 [place] Cells Not Reportable 11/26/17 10:45 Bite Cells Not Reportable 11/26/17 10:45 Crenated Cell Not Reportable 11/26/17 10:45 Elliptocytes Not Reportable 11/26/17 10:45 Acanthocytes (Spur) Not Reportable 11/26/17 10:45 Rouleaux Not Reportable 11/26/17 10:45 Hemoglobin C Crystals Not Reportable 11/26/17 10:45 Schistocytes Not Reportable 11/26/17 10:45 Malaria parasites Not Reportable 11/26/17 10:45 ESR > 140.0 mm/Hr (0-20) 11/23/17 14:53 [place] Bodies Not Reportable 11/26/17 10:45 Hem Pathologist Commnt No 11/26/17 10:45 Sodium 139 mmol/L (137-145) 11/27/17 06:02 Potassium 4.1 mmol/L (3.6-5.0) 11/27/17 06:02 Chloride 97.6 mmol/L (98-107) L 11/27/17 06:02 Carbon Dioxide 26 mmol/L (22-30) 11/27/17 06:02 Anion Gap 20 mmol/L 11/27/17 06:02 BUN 9 mg/dL (9-20) 11/27/17 06:02 Creatinine 0.7 mg/dL (0.8-1.5) L 11/27/17 06:02 Estimated GFR > 60 ml/min 11/27/17 06:02 BUN/Creatinine Ratio 13 % 11/27/17 06:02 Glucose 97 mg/dL (75-100) 11/27/17 06:02 POC Glucose 170 (70-105) H 11/27/17 16:55 Hemoglobin A1c 7.6 % (4-6) H 11/24/17 16:40 Lactic Acid 1.30 mmol/L (0.7-2.0) 11/24/17 02:35 Calcium 8.4 mg/dL (8.4-10.2) 11/27/17 06:02 C-Reactive Protein 23.30 mg/dL (0.00-1.30) H 11/24/17 16:40 Urine Color Yellow (Yellow) 11/24/17 04:47 Urine Turbidity Clear (Clear) 11/24/17 04:47 Urine pH 5.0 (5.0-7.0) 11/24/17 04:47 Ur Specific [place] 1.026 (1.003-1.030) 11/24/17 04:47 Urine Protein 30 mg/dl mg/dL (Negative) 11/24/17 04:47 Urine Glucose (UA) 50 mg/dL (Negative) 11/24/17 04:47 Urine Ketones Neg mg/dL (Negative) 11/24/17 04:47 Urine Blood Neg (Negative) 11/24/17 04:47 Urine Nitrite Neg (Negative) 11/24/17 04:47 Urine Bilirubin Neg (Negative) 11/24/17 04:47 Urine Urobilinogen 4.0 mg/dL (<2.0) 11/24/17 04:47 Ur Leukocyte Esterase Tr (Negative) 11/24/17 04:47 Urine WBC (Auto) 9.0 /HPF (0.0-6.0) H 11/24/17 04:47 Urine RBC (Auto) 2.0 /HPF (0.0-6.0) 11/24/17 04:47 U Epithel Cells (Auto) < 1.0 /HPF (0-13.0) 11/24/17 04:47 Urine Mucus Few /HPF 11/24/17 04:47 Vancomycin Trough 16.6 ug/mL (5.0-20.0) 11/26/17 07:48 Urine Opiates Screen Presumptive negative 11/24/17 04:46 Urine Methadone Screen Presumptive negative 11/24/17 04:46 Ur Barbiturates Screen Presumptive negative 11/24/17 04:46 Ur Phencyclidine Scrn Presumptive negative 11/24/17 04:46 Ur Amphetamines Screen Presumptive positive 11/24/17 04:46 U Benzodiazepines Scrn Presumptive negative 11/24/17 04:46 Urine Cocaine Screen Presumptive negative 11/24/17 04:46 U Marijuana (THC) Screen Presumptive negative 11/24/17 04:46 Drugs of Abuse Note Disclamer 11/24/17 04:46
--- NOTE | 2017-11-27 18:55 | Progress Note ---
Assessment and Plan Assessment: 1) Sepsis: Still leukocytosis. Etiology most likely right foot diabetic infection -CRP = 23.30 3) Diabetic foot ulcer right great toe with cellulitis, presumed osteomyelitis; r/o abscess -Right foot with erythema of the great toe extension to the dorsal surface of the foot with tenderness to palpation and mild swelling. -Foot X-Ray findings are consistent with osteomyelitis with destruction of the distal half of the 1st distal phalanx -S/p angioplasty 11/26 3) Diabetes; uncontrolled 4) CAD 5) COPD 6) Acute OK 7) hypertension; stable 8) seizures, stroke 9) PVD 10) Meth addict Plan: -follow-up blood cultures -continue zosyn and vanco day 5 -awaiting Dr Bajwa's input ? amputation ? debridement -pt cannot be sent home on IV abx and PICC due to active meth addiction. Consider oral antibiotics for home Nicci Castellon Subjective Date of service: 11/27/17 Principal diagnosis: cellulitis Interval history: Feels ok, no fever, wants to go home. Microbiology: Blood cultures: 11/23 ngtd Urine cultures: 11/24 ngtd Current Antimicrobials: Zosyn 11/23 Vancomycin 11/23 Previous Antimicrobials: Objective - Constitutional Vitals: Vital Signs Temp Pulse Resp BP Pulse Ox 98.1 F 66 16 101/62 95 11/27/17 15:41 11/27/17 10:14 11/27/17 15:41 11/27/17 15:41 11/27/17 07:44 Temperature -Last 24 Hours Temperature 98.1 F Temperature 98.3 F Temperature 98.3 F - Labs CBC & Chem 7: 11/27/17 06:02 11/27/17 06:02 Labs: Abnormal lab results 11/27/17 11/27/17 11/27/17 Range/Units 06:02 06:02 07:41 WBC 15.3 H (4.5-11.0) K/mm3 RBC 3.20 L (3.65-5.03) M/mm3 Hgb 9.7 L (11.8-15.2) gm/dl Hct 28.7 L (35.5-45.6) % Chloride 97.6 L (98-107) mmol/L Creatinine 0.7 L (0.8-1.5) mg/dL POC Glucose 129 H (70-105) 11/27/17 11/27/17 Range/Units 12:25 16:55 WBC (4.5-11.0) K/mm3 RBC (3.65-5.03) M/mm3 Hgb (11.8-15.2) gm/dl Hct (35.5-45.6) % Chloride (98-107) mmol/L Creatinine (0.8-1.5) mg/dL POC Glucose 277 H 170 H (70-105)
[2017-11-28] MEDS: NOVOLOG SUB-Q SCH ×5 (01:12→17:20)
[2017-11-28 05:26] LABS: Hematocrit 27.4 % (35.5-45.6); Hemoglobin 9.3 gm/dl (11.8-15.2); Mean Corpuscular HGB Conc 34 % (32-34); Mean Corpuscular Hemoglobin 30 pg (28-32); Mean Corpuscular Volume 89 fl (84-94); Platelet Count 377 K/mm3 (140-440); Red Blood Count 3.09 M/mm3 (3.65-5.03); Red Cell Distribution Width 14.1 % (13.2-15.2)
[2017-11-28] MEDS: ZOSYN/NS 4.5GM/100ML 4.5 GM/100 ML VIAL IV SCH ×3 (05:41→21:58)
[2017-11-28 05:49] LABS: BUN/Creatinine Ratio 14; Blood Urea Nitrogen 10 mg/dL (9-20); Calcium 8.2 mg/dL (8.4-10.2); Hemolysis Index 7
--- NOTE | 2017-11-28 07:48 | Progress Note ---
Assessment and Plan - Patient Problems (1) Cellulitis of right foot Current Visit: Yes Status: Acute Plan to address problem: SP revas of RLE Continue wound care Subjective Principal diagnosis: cellulitis Interval history: No new complaints Objective - Constitutional Vitals: Vital Signs - 12hr 11/27/17 11/27/17 21:27 21:28 Temperature 99.8 F H Pulse Rate 79 84 Respiratory 24 Rate Blood Pressure 111/70 111/70 O2 Sat by Pulse 96 Oximetry General appearance: Present: no acute distress Extremity abnormal: other (right foot dressing dry and intact) - Labs CBC & Chem 7: 11/28/17 04:54 11/28/17 04:54 Labs: Abnormal lab results 11/27/17 11/27/17 11/28/17 Range/Units 12:25 16:55 04:54 WBC 15.3 H (4.5-11.0) K/mm3 RBC 3.09 L (3.65-5.03) M/mm3 Hgb 9.3 L (11.8-15.2) gm/dl Hct 27.4 L (35.5-45.6) % Sodium (137-145) mmol/L Chloride (98-107) mmol/L Creatinine (0.8-1.5) mg/dL POC Glucose 277 H 170 H (70-105) Calcium (8.4-10.2) mg/dL 11/28/17 Range/Units 04:54 WBC (4.5-11.0) K/mm3 RBC (3.65-5.03) M/mm3 Hgb (11.8-15.2) gm/dl Hct (35.5-45.6) % Sodium 136 L (137-145) mmol/L Chloride 95.1 L (98-107) mmol/L Creatinine 0.7 L (0.8-1.5) mg/dL POC Glucose (70-105) Calcium 8.2 L (8.4-10.2) mg/dL
[2017-11-28] MEDS: NORCO 5/325 PO PRN ×2 (08:52→16:44)
[2017-11-28] MEDS: VANCOMYCIN/0.45 NS 1 GM/250 ML 1 GM/250 ML BAG IV SCH ×2 (08:52→21:58)
[2017-11-28] MEDS: THERAGRAN-M Tab PO SCH (09:18)
[2017-11-28] MEDS: OxyCONTIN PO SCH ×2 (09:18→21:59)
[2017-11-28] MEDS: PEPCID PO SCH ×2 (09:18→22:00)
[2017-11-28] MEDS: PLAVIX PO SCH (09:18)
[2017-11-28] MEDS: EFFEXOR XR PO SCH (09:18)
[2017-11-28] MEDS: ASPIRIN PO SCH (09:19)
[2017-11-28] MEDS: COREG PO SCH ×2 (09:19→21:59)
--- NOTE | 2017-11-28 14:11 | Progress Note ---
Assessment and Plan - Patient Problems (1) CAD (coronary artery disease) Current Visit: Yes Status: Acute Qualifiers: Coronary Disease-Associated Artery/Lesion type: [place] artery [place] vs. transplanted heart: [place] heart Associated angina: without angina Qualified Code(s): I25.10 - Atherosclerotic heart disease of [place] coronary artery without angina pectoris Plan to address problem: Remains chest pain-free at this particular time patient on Coreg for blood pressure control and Plavix. No bleeding hemodynamically stable. (2) COPD (chronic obstructive pulmonary disease) Current Visit: Yes Status: Acute Plan to address problem: Team when necessary nebulizers. Oxygenating well at this time. (3) Cellulitis of right foot Current Visit: Yes Status: Acute Plan to address problem: Cellulitis right foot continue vancomycin and Zosyn to complete 4 weeks. Note patient complete four-week antibiotics. Not able to send home secondary to methamphetamine use. Patient cannot go home with IV catheter and methamphetamine. Risk outweigh benefits. (4) Diabetes type 2, uncontrolled Current Visit: Yes Status: Acute Plan to address problem: Diabetes remains uncontrolled we'll continue to titrate insulin. (5) Methamphetamine dependence Current Visit: Yes Status: Acute (6) Sepsis Current Visit: Yes Status: Acute Qualifiers: Sepsis type: sepsis due to unspecified organism Qualified Code(s): A41.9 - Sepsis, unspecified organism Plan to address problem: Sepsis secondary to right foot ulcer. History Interval history: Hospital course complicated by patient not able to whole foot still to obtain images necessary. Status post revascularization. Cellulitis right foot osteomyelitis hallux and uncontrolled diabetes. Other than that no new events overnight. Hospitalist Physical - Constitutional Vitals: Temp Pulse Resp BP Pulse Ox 98.2 F 79 16 119/71 97 11/28/17 07:43 11/28/17 09:19 11/28/17 07:43 11/28/17 09:19 11/28/17 07:43 General appearance: Present: no acute distress - EENT Eyes: Present: PERRL, EOM intact ENT: hearing intact, clear oral mucosa, dentition normal - Neck Neck: Present: supple, normal ROM - Respiratory Respiratory effort: normal Respiratory: bilateral: CTA - Cardiovascular Rhythm: regular Heart Sounds: Present: S1 & S2 - Extremities Extremity abnormal: edema, erythema, pulses diminished Peripheral Pulses: abnormal - Abdominal General gastrointestinal: soft, non-tender, normal bowel sounds - Integumentary Integumentary: Present: erythema - Psychiatric Psychiatric: appropriate mood/affect - Neurologic Neurologic: CNII-XII intact Results - Labs CBC & Chem 7: 11/28/17 04:54 11/28/17 04:54 Labs: Laboratory Last Values WBC 15.3 K/mm3 (4.5-11.0) H 11/28/17 04:54 RBC 3.09 M/mm3 (3.65-5.03) L 11/28/17 04:54 Hgb 9.3 gm/dl (11.8-15.2) L 11/28/17 04:54 Hct 27.4 % (35.5-45.6) L 11/28/17 04:54 MCV 89 fl (84-94) 11/28/17 04:54 MCH 30 pg (28-32) 11/28/17 04:54 MCHC 34 % (32-34) 11/28/17 04:54 RDW 14.1 % (13.2-15.2) 11/28/17 04:54 Plt Count 377 K/mm3 (140-440) 11/28/17 04:54 Lymph % (Auto) 7.2 % (13.4-35.0) L 11/23/17 14:53 [place] % (Auto) 5.5 % (0.0-7.3) 11/23/17 14:53 Eos % (Auto) 0.2 % (0.0-4.3) 11/23/17 14:53 Baso % (Auto) 0.2 % (0.0-1.8) 11/23/17 14:53 Lymph # 1.3 K/mm3 (1.2-5.4) 11/23/17 14:53 [place] # 1.0 K/mm3 (0.0-0.8) H 11/23/17 14:53 Eos # 0.0 K/mm3 (0.0-0.4) 11/23/17 14:53 Baso # 0.0 K/mm3 (0.0-0.1) 11/23/17 14:53 Add Manual Diff Complete 11/26/17 10:45 Total Counted 100 11/26/17 10:45 Seg Neutrophils % 86.9 % (40.0-70.0) H 11/23/17 14:53 Seg Neuts % (Manual) 93.0 % (40.0-70.0) H 11/26/17 10:45 Band Neutrophils % 1.0 % 11/26/17 10:45 Lymphocytes % (Manual) 5.0 % (13.4-35.0) L 11/26/17 10:45 Reactive Lymphs % (Man) 0 % 11/26/17 10:45 Monocytes % (Manual) 1.0 % (0.0-7.3) 11/26/17 10:45 Eosinophils % (Manual) 0 % (0.0-4.3) 11/26/17 10:45 Basophils % (Manual) 0 % (0.0-1.8) 11/26/17 10:45 Metamyelocytes % 0 % 11/26/17 10:45 Myelocytes % 0 % 11/26/17 10:45 Promyelocytes % 0 % 11/26/17 10:45 Blast Cells % 0 % 11/26/17 10:45 Nucleated RBC % Not Reportable 11/26/17 10:45 Seg Neutrophils # 15.9 K/mm3 (1.8-7.7) H 11/23/17 14:53 Seg Neutrophils # Man 19.0 K/mm3 (1.8-7.7) H 11/26/17 10:45 Band Neutrophils # 0.2 K/mm3 11/26/17 10:45 Lymphocytes # (Manual) 1.0 K/mm3 (1.2-5.4) L 11/26/17 10:45 Abs React Lymphs (Man) 0.0 K/mm3 11/26/17 10:45 Monocytes # (Manual) 0.2 K/mm3 (0.0-0.8) 11/26/17 10:45 Eosinophils # (Manual) 0.0 K/mm3 (0.0-0.4) 11/26/17 10:45 Basophils # (Manual) 0.0 K/mm3 (0.0-0.1) 11/26/17 10:45 Metamyelocytes # 0.0 K/mm3 11/26/17 10:45 Myelocytes # 0.0 K/mm3 11/26/17 10:45 Promyelocytes # 0.0 K/mm3 11/26/17 10:45 Blast Cells # 0.0 K/mm3 11/26/17 10:45 WBC Morphology Not Reportable 11/26/17 10:45 Hypersegmented Neuts Not Reportable 11/26/17 10:45 Hyposegmented Neuts Not Reportable 11/26/17 10:45 Hypogranular Neuts Not Reportable 11/26/17 10:45 Smudge Cells Not Reportable 11/26/17 10:45 Toxic Granulation Not Reportable 11/26/17 10:45 Toxic Vacuolation Not Reportable 11/26/17 10:45 Dohle Bodies Not Reportable 11/26/17 10:45 Pelger-Huet Anomaly Not Reportable 11/26/17 10:45 Surendra Rods Not Reportable 11/26/17 10:45 Platelet Estimate Appears normal 11/26/17 10:45 Clumped Platelets Not Reportable 11/26/17 10:45 Plt Clumps, EDTA Not Reportable 11/26/17 10:45 Large Platelets Not Reportable 11/26/17 10:45 Giant Platelets Not Reportable 11/26/17 10:45 Platelet Satelliting Not Reportable 11/26/17 10:45 Plt Morphology Comment Not Reportable 11/26/17 10:45 RBC Morphology Not Reportable 11/26/17 10:45 Dimorphic RBCs Not Reportable 11/26/17 10:45 Polychromasia Not Reportable 11/26/17 10:45 Hypochromasia Not Reportable 11/26/17 10:45 Poikilocytosis Not Reportable 11/26/17 10:45 Anisocytosis 1+ 11/26/17 10:45 Microcytosis Not Reportable 11/26/17 10:45 Macrocytosis Not Reportable 11/26/17 10:45 Spherocytes Not Reportable 11/26/17 10:45 Pappenheimer Bodies Not Reportable 11/26/17 10:45 Sickle Cells Not Reportable 11/26/17 10:45 Target Cells Not Reportable 11/26/17 10:45 Tear Drop Cells Not Reportable 11/26/17 10:45 Ovalocytes Few 11/26/17 10:45 Helmet Cells Not Reportable 11/26/17 10:45 Dahl-[place] Bodies Not Reportable 11/26/17 10:45 [place] Rings Not Reportable 11/26/17 10:45 Fdiel Cells Not Reportable 11/26/17 10:45 Bite Cells Not Reportable 11/26/17 10:45 Crenated Cell Not Reportable 11/26/17 10:45 Elliptocytes Not Reportable 11/26/17 10:45 Acanthocytes (Spur) Not Reportable 11/26/17 10:45 Rouleaux Not Reportable 11/26/17 10:45 Hemoglobin C Crystals Not Reportable 11/26/17 10:45 Schistocytes Not Reportable 11/26/17 10:45 Malaria parasites Not Reportable 11/26/17 10:45 ESR > 140.0 mm/Hr (0-20) 11/23/17 14:53 Ellis Bodies Not Reportable 11/26/17 10:45 Hem Pathologist Commnt No 11/26/17 10:45 Sodium 136 mmol/L (137-145) L 11/28/17 04:54 Potassium 3.8 mmol/L (3.6-5.0) 11/28/17 04:54 Chloride 95.1 mmol/L (98-107) L 11/28/17 04:54 Carbon Dioxide 26 mmol/L (22-30) 11/28/17 04:54 Anion Gap 19 mmol/L 11/28/17 04:54 BUN 10 mg/dL (9-20) 11/28/17 04:54 Creatinine 0.7 mg/dL (0.8-1.5) L 11/28/17 04:54 Estimated GFR > 60 ml/min 11/28/17 04:54 BUN/Creatinine Ratio 14 % 11/28/17 04:54 Glucose 81 mg/dL (75-100) 11/28/17 04:54 POC Glucose 190 (70-105) H 11/28/17 12:17 Hemoglobin A1c 7.6 % (4-6) H 11/24/17 16:40 Lactic Acid 1.30 mmol/L (0.7-2.0) 11/24/17 02:35 Calcium 8.2 mg/dL (8.4-10.2) L 11/28/17 04:54 C-Reactive Protein 23.30 mg/dL (0.00-1.30) H 11/24/17 16:40 Urine Color Yellow (Yellow) 11/24/17 04:47 Urine Turbidity Clear (Clear) 11/24/17 04:47 Urine pH 5.0 (5.0-7.0) 11/24/17 04:47 Ur Specific [place] 1.026 (1.003-1.030) 11/24/17 04:47 Urine Protein 30 mg/dl mg/dL (Negative) 11/24/17 04:47 Urine Glucose (UA) 50 mg/dL (Negative) 11/24/17 04:47 Urine Ketones Neg mg/dL (Negative) 11/24/17 04:47 Urine Blood Neg (Negative) 11/24/17 04:47 Urine Nitrite Neg (Negative) 11/24/17 04:47 Urine Bilirubin Neg (Negative) 11/24/17 04:47 Urine Urobilinogen 4.0 mg/dL (<2.0) 11/24/17 04:47 Ur Leukocyte Esterase Tr (Negative) 11/24/17 04:47 Urine WBC (Auto) 9.0 /HPF (0.0-6.0) H 11/24/17 04:47 Urine RBC (Auto) 2.0 /HPF (0.0-6.0) 11/24/17 04:47 U Epithel Cells (Auto) < 1.0 /HPF (0-13.0) 11/24/17 04:47 Urine Mucus Few /HPF 11/24/17 04:47 Vancomycin Trough 16.6 ug/mL (5.0-20.0) 11/26/17 07:48 Urine Opiates Screen Presumptive negative 11/24/17 04:46 Urine Methadone Screen Presumptive negative 11/24/17 04:46 Ur Barbiturates Screen Presumptive negative 11/24/17 04:46 Ur Phencyclidine Scrn Presumptive negative 11/24/17 04:46 Ur Amphetamines Screen Presumptive positive 11/24/17 04:46 U Benzodiazepines Scrn Presumptive negative 11/24/17 04:46 Urine Cocaine Screen Presumptive negative 11/24/17 04:46 U Marijuana (THC) Screen Presumptive negative 11/24/17 04:46 Drugs of Abuse Note Disclamer 11/24/17 04:46
[2017-11-29] MEDS: NOVOLOG SUB-Q SCH ×5 (01:25→22:51)
[2017-11-29] MEDS: ZOSYN/NS 4.5GM/100ML 4.5 GM/100 ML VIAL IV SCH ×3 (05:52→22:44)
[2017-11-29] MEDS: VANCOMYCIN/0.45 NS 1 GM/250 ML 1 GM/250 ML BAG IV SCH ×2 (09:33→20:00)
[2017-11-29] MEDS: COREG PO SCH ×2 (09:42→22:43)
[2017-11-29] MEDS: PEPCID PO SCH ×2 (09:42→22:42)
[2017-11-29] MEDS: OxyCONTIN PO SCH ×2 (09:43→22:42)
[2017-11-29] MEDS: THERAGRAN-M Tab PO SCH (09:43)
[2017-11-29] MEDS: ASPIRIN PO SCH (09:43)
[2017-11-29] MEDS: PLAVIX PO SCH (09:44)
[2017-11-29] MEDS: EFFEXOR XR PO SCH (09:45)
--- NOTE | 2017-11-29 12:03 | Progress Note ---
Addendum entered and electronically signed by ANA MARÍA GOLDEN MD 11/29/17 18:37: Pt seen and examined independently. Agree with assessment and recommendations. Awaiting further podiatry input. CT RLE done today since couldn't tolerate MRI. Results noted, ?gas withing plantar fascia. Will f/u. Original Note: <DEAN COX - Last Filed: 11/29/17 15:01> Assessment and Plan Assessment: 1) Sepsis: leukocytosis trending down. Etiology most likely right foot diabetic infection -CRP = 23.30 -blood cultures 11/23 negative -urine culture 11/24 negative 3) Diabetic foot ulcer right great toe with cellulitis, presumed osteomyelitis; r/o abscess -Right foot with erythema of the great toe extension to the dorsal surface of the foot with tenderness to palpation and mild swelling. -Foot X-Ray findings are consistent with osteomyelitis with destruction of the distal half of the 1st distal phalanx -S/p angioplasty 11/26 3) Diabetes; uncontrolled 4) CAD 5) COPD 6) Acute [place] 7) hypertension; stable 8) seizures, stroke 9) PVD 10) Meth addict Plan: -pt was unable to tolerate MRI even with the administration of ativan. -continue zosyn and vanco day 7 -awaiting Dr Bajwa's input ? amputation ? debridement -pt cannot be sent home on IV abx and PICC due to active meth addiction. Consider oral antibiotics for home Thank you Dr. Batista for your consultation, will follow up with you. Dean Cox NP for Ana María Golden MD Infectious Diseases Specialist [facility] ([facility]) M [phone] O [phone] Subjective Date of service: 11/29/17 Principal diagnosis: cellulitis Interval history: Feels ok, no fever, wants to go home. Microbiology: Blood cultures: 11/23 ngtd Urine cultures: 11/24 ngtd Current Antimicrobials: Zosyn 11/23 Vancomycin 11/23 Previous Antimicrobials: Objective - Exam Narrative Exam: General appearance: Alert in NAD, conversant Eyes: anicteric sclerae, moist conjunctivae; no lid-lag; PERRLA HENT: Atraumatic; oropharynx clear Neck: Trachea midline; supple, no thyromegaly or lymphadenopathy Lungs: CTAB CV: RRR S1 S2 Abdomen: firm and tense + RUQ tenderness; +hepatosplenomegaly Extremities: Right foot with erythema of the great toe extension to the dorsal surface of the foot with tenderness to palpation. Mild swelling. 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 Moving all extermities Lines: No CVL / PICC - Constitutional Vitals: Vital Signs Temp Pulse Resp BP Pulse Ox 98.3 F 72 20 120/80 96 11/29/17 07:57 11/29/17 09:42 11/29/17 07:57 11/29/17 09:42 11/29/17 07:57 Temperature -Last 24 Hours Temperature 98.3 F Temperature 98.0 F Temperature 98.0 F - Labs CBC & Chem 7: 11/28/17 04:54 11/28/17 04:54 Labs: Abnormal lab results 11/28/17 11/28/17 11/29/17 Range/Units 12:17 17:14 11:17 POC Glucose 190 H 170 H 254 H (70-105) <ANA MARÍA GOLDEN - Last Filed: 11/29/17 18:35> Objective - Constitutional Vitals: Vital Signs Temp Pulse Resp BP Pulse Ox 97.6 F 60 20 123/63 98 11/29/17 15:12 11/29/17 15:12 11/29/17 15:12 11/29/17 15:12 11/29/17 15:12 Temperature -Last 24 Hours Temperature 97.6 F Temperature 98.3 F Temperature 98.0 F - Labs CBC & Chem 7: 11/28/17 04:54 11/28/17 04:54 Labs: Abnormal lab results 11/29/17 11/29/17 Range/Units 11:17 15:21 POC Glucose 254 H 234 H (70-105)
--- NOTE | 2017-11-29 13:39 | Progress Note ---
Assessment and Plan - Patient Problems (1) CAD (coronary artery disease) Current Visit: Yes Status: Acute Qualifiers: Coronary Disease-Associated Artery/Lesion type: [place] artery [place] vs. transplanted heart: [place] heart Associated angina: without angina Qualified Code(s): I25.10 - Atherosclerotic heart disease of [place] coronary artery without angina pectoris Plan to address problem: Remains chest pain-free at this particular time patient on Coreg for blood pressure control and Plavix. No bleeding hemodynamically stable. (2) COPD (chronic obstructive pulmonary disease) Current Visit: Yes Status: Acute Plan to address problem: Team when necessary nebulizers. Oxygenating well at this time. (3) Cellulitis of right foot Current Visit: Yes Status: Acute Plan to address problem: Patient was unable to get MRI to whole foot still. Will order CT scan foot. Patient will require antibiotics for weeks Vanco and Zosyn. Secondary to amphetamine use and high risk population. (4) Diabetes type 2, uncontrolled Current Visit: Yes Status: Acute Plan to address problem: Diabetes remains uncontrolled we'll continue to titrate insulin. Increase Novolin to 20 units twice a day (5) Methamphetamine dependence Current Visit: Yes Status: Acute Plan to address problem: Patient willing to listen to cessation of methamphetamine. May be why patient wants to be discharged. Suspect underlying mental health illness. (6) Sepsis Current Visit: Yes Status: Acute Qualifiers: Sepsis type: sepsis due to unspecified organism Qualified Code(s): A41.9 - Sepsis, unspecified organism Plan to address problem: Sepsis secondary to right foot ulcer. History Interval history: . Other than that no new events overnight. Patient got really manifesting angry when told how long he had stay in the hospital to get antibiotics. Patient did not hold foot steel to get MRI. Recommended CT scan of foot. Hospitalist Physical - Constitutional Vitals: Temp Pulse Resp BP Pulse Ox 98.3 F 72 20 120/80 96 11/29/17 07:57 11/29/17 09:42 11/29/17 07:57 11/29/17 09:42 11/29/17 07:57 General appearance: Present: no acute distress - EENT Eyes: Present: PERRL, EOM intact ENT: hearing intact, clear oral mucosa, dentition normal, no oropharyngeal erythema, no poor dentition, no thrush, no edentulous - Neck Neck: Present: supple, normal ROM. Absent: enlarged thyroid, masses or JVD - Respiratory Respiratory effort: normal Respiratory: bilateral: CTA - Cardiovascular Rhythm: regular - Extremities Extremities: pulses intact Extremity abnormal: edema Peripheral Pulses: abnormal - Abdominal General gastrointestinal: soft, non-tender, normal bowel sounds - Integumentary Integumentary: Present: dry. Absent: jaundice, rash - Psychiatric Psychiatric: memory intact, other (poor judgment are intact focal deficits.) - Neurologic Neurologic: CNII-XII intact, moves all extremities Results - Labs CBC & Chem 7: 11/28/17 04:54 11/28/17 04:54 Labs: Laboratory Last Values WBC 15.3 K/mm3 (4.5-11.0) H 11/28/17 04:54 RBC 3.09 M/mm3 (3.65-5.03) L 11/28/17 04:54 Hgb 9.3 gm/dl (11.8-15.2) L 11/28/17 04:54 Hct 27.4 % (35.5-45.6) L 11/28/17 04:54 MCV 89 fl (84-94) 11/28/17 04:54 MCH 30 pg (28-32) 11/28/17 04:54 MCHC 34 % (32-34) 11/28/17 04:54 RDW 14.1 % (13.2-15.2) 11/28/17 04:54 Plt Count 377 K/mm3 (140-440) 11/28/17 04:54 Lymph % (Auto) 7.2 % (13.4-35.0) L 11/23/17 14:53 [place] % (Auto) 5.5 % (0.0-7.3) 11/23/17 14:53 Eos % (Auto) 0.2 % (0.0-4.3) 11/23/17 14:53 Baso % (Auto) 0.2 % (0.0-1.8) 11/23/17 14:53 Lymph # 1.3 K/mm3 (1.2-5.4) 11/23/17 14:53 [place] # 1.0 K/mm3 (0.0-0.8) H 11/23/17 14:53 Eos # 0.0 K/mm3 (0.0-0.4) 11/23/17 14:53 Baso # 0.0 K/mm3 (0.0-0.1) 11/23/17 14:53 Add Manual Diff Complete 11/26/17 10:45 Total Counted 100 11/26/17 10:45 Seg Neutrophils % 86.9 % (40.0-70.0) H 11/23/17 14:53 Seg Neuts % (Manual) 93.0 % (40.0-70.0) H 11/26/17 10:45 Band Neutrophils % 1.0 % 11/26/17 10:45 Lymphocytes % (Manual) 5.0 % (13.4-35.0) L 11/26/17 10:45 Reactive Lymphs % (Man) 0 % 11/26/17 10:45 Monocytes % (Manual) 1.0 % (0.0-7.3) 11/26/17 10:45 Eosinophils % (Manual) 0 % (0.0-4.3) 11/26/17 10:45 Basophils % (Manual) 0 % (0.0-1.8) 11/26/17 10:45 Metamyelocytes % 0 % 11/26/17 10:45 Myelocytes % 0 % 11/26/17 10:45 Promyelocytes % 0 % 11/26/17 10:45 Blast Cells % 0 % 11/26/17 10:45 Nucleated RBC % Not Reportable 11/26/17 10:45 Seg Neutrophils # 15.9 K/mm3 (1.8-7.7) H 11/23/17 14:53 Seg Neutrophils # Man 19.0 K/mm3 (1.8-7.7) H 11/26/17 10:45 Band Neutrophils # 0.2 K/mm3 11/26/17 10:45 Lymphocytes # (Manual) 1.0 K/mm3 (1.2-5.4) L 11/26/17 10:45 Abs React Lymphs (Man) 0.0 K/mm3 11/26/17 10:45 Monocytes # (Manual) 0.2 K/mm3 (0.0-0.8) 11/26/17 10:45 Eosinophils # (Manual) 0.0 K/mm3 (0.0-0.4) 11/26/17 10:45 Basophils # (Manual) 0.0 K/mm3 (0.0-0.1) 11/26/17 10:45 Metamyelocytes # 0.0 K/mm3 11/26/17 10:45 Myelocytes # 0.0 K/mm3 11/26/17 10:45 Promyelocytes # 0.0 K/mm3 11/26/17 10:45 Blast Cells # 0.0 K/mm3 11/26/17 10:45 WBC Morphology Not Reportable 11/26/17 10:45 Hypersegmented Neuts Not Reportable 11/26/17 10:45 Hyposegmented Neuts Not Reportable 11/26/17 10:45 Hypogranular Neuts Not Reportable 11/26/17 10:45 Smudge Cells Not Reportable 11/26/17 10:45 Toxic Granulation Not Reportable 11/26/17 10:45 Toxic Vacuolation Not Reportable 11/26/17 10:45 Dohle Bodies Not Reportable 11/26/17 10:45 Pelger-Huet Anomaly Not Reportable 11/26/17 10:45 Surendra Rods Not Reportable 11/26/17 10:45 Platelet Estimate Appears normal 11/26/17 10:45 Clumped Platelets Not Reportable 11/26/17 10:45 Plt Clumps, EDTA Not Reportable 11/26/17 10:45 Large Platelets Not Reportable 11/26/17 10:45 Giant Platelets Not Reportable 11/26/17 10:45 Platelet Satelliting Not Reportable 11/26/17 10:45 Plt Morphology Comment Not Reportable 11/26/17 10:45 RBC Morphology Not Reportable 11/26/17 10:45 Dimorphic RBCs Not Reportable 11/26/17 10:45 Polychromasia Not Reportable 11/26/17 10:45 Hypochromasia Not Reportable 11/26/17 10:45 Poikilocytosis Not Reportable 11/26/17 10:45 Anisocytosis 1+ 11/26/17 10:45 Microcytosis Not Reportable 11/26/17 10:45 Macrocytosis Not Reportable 11/26/17 10:45 Spherocytes Not Reportable 11/26/17 10:45 Pappenheimer Bodies Not Reportable 11/26/17 10:45 Sickle Cells Not Reportable 11/26/17 10:45 Target Cells Not Reportable 11/26/17 10:45 Tear Drop Cells Not Reportable 11/26/17 10:45 Ovalocytes Few 11/26/17 10:45 Helmet Cells Not Reportable 11/26/17 10:45 Dahl-[place] Bodies Not Reportable 11/26/17 10:45 [place] Rings Not Reportable 11/26/17 10:45 [place] Cells Not Reportable 11/26/17 10:45 Bite Cells Not Reportable 11/26/17 10:45 Crenated Cell Not Reportable 11/26/17 10:45 Elliptocytes Not Reportable 11/26/17 10:45 Acanthocytes (Spur) Not Reportable 11/26/17 10:45 Rouleaux Not Reportable 11/26/17 10:45 Hemoglobin C Crystals Not Reportable 11/26/17 10:45 Schistocytes Not Reportable 11/26/17 10:45 Malaria parasites Not Reportable 11/26/17 10:45 ESR > 140.0 mm/Hr (0-20) 11/23/17 14:53 Ellis Bodies Not Reportable 11/26/17 10:45 Hem Pathologist Commnt No 11/26/17 10:45 Sodium 136 mmol/L (137-145) L 11/28/17 04:54 Potassium 3.8 mmol/L (3.6-5.0) 11/28/17 04:54 Chloride 95.1 mmol/L (98-107) L 11/28/17 04:54 Carbon Dioxide 26 mmol/L (22-30) 11/28/17 04:54 Anion Gap 19 mmol/L 11/28/17 04:54 BUN 10 mg/dL (9-20) 11/28/17 04:54 Creatinine 0.7 mg/dL (0.8-1.5) L 11/28/17 04:54 Estimated GFR > 60 ml/min 11/28/17 04:54 BUN/Creatinine Ratio 14 % 11/28/17 04:54 Glucose 81 mg/dL (75-100) 11/28/17 04:54 POC Glucose 254 (70-105) H 11/29/17 11:17 Hemoglobin A1c 7.6 % (4-6) H 11/24/17 16:40 Lactic Acid 1.30 mmol/L (0.7-2.0) 11/24/17 02:35 Calcium 8.2 mg/dL (8.4-10.2) L 11/28/17 04:54 C-Reactive Protein 23.30 mg/dL (0.00-1.30) H 11/24/17 16:40 Urine Color Yellow (Yellow) 11/24/17 04:47 Urine Turbidity Clear (Clear) 11/24/17 04:47 Urine pH 5.0 (5.0-7.0) 11/24/17 04:47 Ur Specific [place] 1.026 (1.003-1.030) 11/24/17 04:47 Urine Protein 30 mg/dl mg/dL (Negative) 11/24/17 04:47 Urine Glucose (UA) 50 mg/dL (Negative) 11/24/17 04:47 Urine Ketones Neg mg/dL (Negative) 11/24/17 04:47 Urine Blood Neg (Negative) 11/24/17 04:47 Urine Nitrite Neg (Negative) 11/24/17 04:47 Urine Bilirubin Neg (Negative) 11/24/17 04:47 Urine Urobilinogen 4.0 mg/dL (<2.0) 11/24/17 04:47 Ur Leukocyte Esterase Tr (Negative) 11/24/17 04:47 Urine WBC (Auto) 9.0 /HPF (0.0-6.0) H 11/24/17 04:47 Urine RBC (Auto) 2.0 /HPF (0.0-6.0) 11/24/17 04:47 U Epithel Cells (Auto) < 1.0 /HPF (0-13.0) 11/24/17 04:47 Urine Mucus Few /HPF 11/24/17 04:47 Vancomycin Trough 16.6 ug/mL (5.0-20.0) 11/26/17 07:48 Urine Opiates Screen Presumptive negative 11/24/17 04:46 Urine Methadone Screen Presumptive negative 11/24/17 04:46 Ur Barbiturates Screen Presumptive negative 11/24/17 04:46 Ur Phencyclidine Scrn Presumptive negative 11/24/17 04:46 Ur Amphetamines Screen Presumptive positive 11/24/17 04:46 U Benzodiazepines Scrn Presumptive negative 11/24/17 04:46 Urine Cocaine Screen Presumptive negative 11/24/17 04:46 U Marijuana (THC) Screen Presumptive negative 02/14/18 04:46 Drugs of Abuse Note Disclamer 11/24/17 04:46
[2017-11-29] MEDS: NORCO 5/325 PO PRN (15:01)
--- NOTE | 2017-11-29 17:02 | Cat Scan Report ---
FINAL REPORT PROCEDURE: CT angiogram pelvis. CT angiogram right lower extremity. TECHNIQUE: Computerized tomographic angiography of the pelvis and RIGHT lower extremity was performed after the IV injection of iodinated nonionic contrast including image processing. The image data was postprocessed using 2-dimensional multiplanar reformatted (MPR) and 3-dimensional (MIP and/or volume rendered) techniques. HISTORY: Cellulitis. COMPARISON: No prior studies are available for comparison. FINDINGS: CT angiogram pelvis: The distal abdominal aorta has a normal caliber. There is atherosclerotic calcification in both common iliac arteries. There is moderate focal narrowing in the right common iliac artery. This may be hemodynamically significant. Both external iliac arteries have satisfactory lumens. The proximal portion of the right internal iliac artery is occluded. There is narrowing at the origin of the left internal iliac artery. Both common femoral arteries have satisfactory lumens. The gastrointestinal tract is unremarkable as far as visualized. A normal appendix is visible. The bladder and seminal vesicles appear normal. There are calcifications in the prostate. The regional skeleton appears intact. CT angiogram right leg: The superficial femoral and deep femoral arteries have satisfactory lumens. There is atherosclerotic calcification scattered in both of these vessels. The popliteal artery has a satisfactory lumen. The trifurcation is patent. The posterior tibial, peroneal and anterior tibial arteries are all patent to the foot. There are some small bubbles of gas visible in the subcutaneous soft tissues near the great toe. This could represent infection with a gas-forming organism. On image 426 and image 430 of series 3 there appears to be a small amount of fluid within the plantar fascia of the foot. There are also 2 tiny bubbles of gas present as well. A deeper infection of the foot is possible. IMPRESSION: Moderate stenosis of the right common iliac artery. Complete occlusion at the origin of the right internal iliac artery. Moderate narrowing at the origin of the left internal iliac artery. Subcutaneous soft tissue gas near the great toe. Fluid and a tiny amount of gas within the plantar fascia worrisome for infection.
[2017-11-30] MEDS: ZOSYN/NS 4.5GM/100ML 4.5 GM/100 ML VIAL IV SCH ×3 (06:46→23:00)
[2017-11-30] MEDS: NOVOLOG SUB-Q SCH ×3 (09:05→16:30)
[2017-11-30] MEDS: VANCOMYCIN/0.45 NS 1 GM/250 ML 1 GM/250 ML BAG IV SCH ×2 (09:10→21:05)
[2017-11-30] MEDS: EFFEXOR XR PO SCH (10:53)
[2017-11-30] MEDS: PLAVIX PO SCH (10:53)
[2017-11-30] MEDS: ASPIRIN PO SCH (10:53)
[2017-11-30] MEDS: OxyCONTIN PO SCH ×2 (10:55→21:06)
[2017-11-30] MEDS: PEPCID PO SCH ×2 (10:55→21:07)
[2017-11-30] MEDS: COREG PO SCH ×2 (10:55→21:07)
[2017-11-30] MEDS: THERAGRAN-M Tab PO SCH (10:55)
--- NOTE | 2017-11-30 11:12 | Progress Note ---
<DEAN COX - Last Filed: 11/30/17 15:19> Assessment and Plan Assessment: 1) Sepsis: leukocytosis trending down. Etiology most likely right foot diabetic infection -CRP = 23.30 -blood cultures 11/23 negative -urine culture 11/24 negative 3) Diabetic foot ulcer right great toe with cellulitis, presumed osteomyelitis; r/o abscess -Right foot with erythema of the great toe extension to the dorsal surface of the foot with tenderness to palpation and mild swelling. -Foot X-Ray findings are consistent with osteomyelitis with destruction of the distal half of the 1st distal phalanx -S/p angioplasty 11/26 -CT RLE done 11/29 since couldn't tolerate MRI showed moderate stenosis of the right common iliac artery; complete occlusion at the origin of the right internal iliac artery; moderate narrowing at the origin of the left internal iliac artery; subcutaneous soft tissue gas near the great toe;fluid at a tiny amount of gas within the plantar fascia worrisome for infection. 3) Diabetes; uncontrolled 4) CAD 5) COPD 6) Acute [place] 7) hypertension; stable 8) seizures, stroke 9) PVD 10) Meth addict Plan: -CBC with diff and BMP in the a.m -continue zosyn and vanco day 8 -still awaiting Dr Bajwa's input ? amputation ? debridement -pt cannot be sent home on IV abx and PICC due to active meth addiction. Consider oral antibiotics for home Thank you Dr. Batista for your consultation, will follow up with you. Dean Cox NP for Ana María Golden MD Infectious Diseases Specialist [facility] ([facility]) M [phone] O [phone] Subjective Date of service: 11/30/17 Principal diagnosis: cellulitis Interval history: Feels ok, no fever, wants to go home. Microbiology: Blood cultures: 11/23 ngtd Urine cultures: 11/24 ngtd Current Antimicrobials: Zosyn 11/23 Vancomycin 11/23 Previous Antimicrobials: Objective - Exam Narrative Exam: General appearance: Alert in NAD, conversant Eyes: anicteric sclerae, moist conjunctivae; no lid-lag; PERRLA HENT: Atraumatic; oropharynx clear Neck: Trachea midline; supple, no thyromegaly or lymphadenopathy Lungs: CTAB CV: RRR S1 S2 Abdomen: firm and tense + RUQ tenderness; +hepatosplenomegaly Extremities: Right foot with erythema of the great toe extension to the dorsal surface of the foot with tenderness to palpation. Mild swelling. 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 Moving all extermities Lines: No CVL / PICC - Constitutional Vitals: Vital Signs Temp Pulse Resp BP Pulse Ox 97.9 F 61 18 103/53 97 11/30/17 07:38 11/30/17 07:38 11/30/17 07:38 11/30/17 07:38 11/30/17 07:38 Temperature -Last 24 Hours Temperature 97.9 F Temperature 98.1 F Temperature 97.6 F - Labs CBC & Chem 7: 11/28/17 04:54 11/28/17 04:54 Labs: Abnormal lab results 11/29/17 11/29/17 11/30/17 Range/Units 11:17 15:21 08:56 POC Glucose 254 H 234 H 173 H (70-105) <ANA MARÍA GOLDEN - Last Filed: 11/30/17 17:10> Objective - Constitutional Vitals: Vital Signs Temp Pulse Resp BP Pulse Ox 98.2 F 58 L 18 136/70 96 11/30/17 15:30 11/30/17 15:30 11/30/17 15:30 11/30/17 15:30 11/30/17 15:30 Temperature -Last 24 Hours Temperature 98.2 F Temperature 97.9 F Temperature 98.1 F - Labs CBC & Chem 7: 11/28/17 04:54 11/28/17 04:54 Labs: Abnormal lab results 11/30/17 Range/Units 08:56 POC Glucose 173 H (70-105)
--- NOTE | 2017-11-30 13:35 | Progress Note ---
Assessment and Plan //Sepsis Likely secondary to right foot Cellulitis and possible osteomylitis continue IV antibiotic therapy with vancomycin and zosyn therapy // Osteomylitis of right foot IV abx, IVF, supportive care x-ray showed Findings are consistent with osteomyelitis with destruction of the distal half of 1st distal phalanx. RLE ARTERIAL DUPLEX DONE showed MONOPHASIC WAVEFORMS OBTAINED THROUGHOUT RLE VESSELS FROM INFLOW TO OUTFLOW General and vascular surgeons and ID following Plan for ampuation on //UTI treated with antibiotics //CAD (coronary artery disease) Continue Statin therapy, low cholesterol diet, //COPD (chronic obstructive pulmonary disease) supplemental oxygen, nebulizer therapy, NIPPV as clinically indicated. //Methamphetamine dependence Supportive care, Pt counseled on cessation. This precludes sending patient home with IV acceess // DVT prophylaxis SCDs Brief History: 62 YO Male with DM, Diabetic Neuropathy, HTN, HLD, CAD S/P Stent Placement, CVA with LHP, Methamphetamine Dependence presents to ED for evaluation. Pt states that he has experienced pain in his right foot for the past 1 month. Hospitalist Physical - Physical exam Narrative exam: General appearance: Present: no acute distress, disheveled, malodorous - EENT Eyes: Present: PERRL, EOM intact ENT: hearing intact, clear oral mucosa - Neck Neck: Present: supple, normal ROM - Respiratory Respiratory effort: normal Respiratory: bilateral: CTA - Cardiovascular Rhythm: regular Heart Sounds: Present: S1 & S2 - Extremities Extremities:ischemia left large toe, No edema Extremity abnormal: other (leftfoot with wound dressing, bandaged) - Abdominal General gastrointestinal: soft, non-tender, non-distended - Integumentary Integumentary: Present: clear, warm, dry - Psychiatric Psychiatric: appropriate mood/affect, cooperative - Neurologic Neurologic: CNII-XII intact, moves all extremities - Allied Health Allied health notes reviewed: nursing Subjective Date of service: 11/30/17 Principal diagnosis: cellulitis Interval history: Patient seen and examined, in no acute distress. Planned for surgery on no new complaints Objective - Constitutional Vitals: Vital Signs - 12hr 11/30/17 07:38 Temperature 97.9 F Pulse Rate 61 Respiratory 18 Rate Blood Pressure 103/53 O2 Sat by Pulse 97 Oximetry - Labs CBC & Chem 7: 12/01/17 06:40 12/01/17 06:40 Labs: Abnormal lab results 11/29/17 11/30/17 Range/Units 15:21 08:56 POC Glucose 234 H 173 H (70-105)
--- NOTE | 2017-11-30 15:44 | Progress Note ---
Assessment and Plan - Patient Problems (1) Non-pressure ulcer of right lower extremity with fat layer exposed Current Visit: Yes Status: Acute Plan to address problem: 1) Right great toe amputation on , 12/02/17. Subjective Date of service: 11/30/17 Patient Reports: Positive: no new complaints Objective Vital Signs - 12hr 11/30/17 11/30/17 07:38 15:30 Temperature 97.9 F 98.2 F Pulse Rate 61 58 L Respiratory 18 18 Rate Blood Pressure 103/53 136/70 O2 Sat by Pulse 97 96 Oximetry - Musculoskeletal other (Right great toe is infected with exposed bone.) - Labs 11/28/17 04:54 11/28/17 04:54
[2017-12-01] MEDS: NOVOLOG SUB-Q SCH ×4 (00:56→23:00)
[2017-12-01] MEDS: ZOSYN/NS 4.5GM/100ML 4.5 GM/100 ML VIAL IV SCH ×3 (06:08→23:30)
[2017-12-01 07:01] LABS: Hematocrit 28.8 % (35.5-45.6); Hemoglobin 10.1 gm/dl (11.8-15.2); Mean Corpuscular HGB Conc 35 % (32-34); Mean Corpuscular Hemoglobin 31 pg (28-32); Mean Corpuscular Volume 89 fl (84-94); Platelet Count 443 K/mm3 (140-440); Red Blood Count 3.24 M/mm3 (3.65-5.03); Red Cell Distribution Width 13.8 % (13.2-15.2)
[2017-12-01 07:26] LABS: BUN/Creatinine Ratio 13; Blood Urea Nitrogen 10 mg/dL (9-20); Calcium 8.6 mg/dL (8.4-10.2); Hemolysis Index 10
--- NOTE | 2017-12-01 08:22 | Vascular Lab Report ---
MISCELLANEOUS VESSEL IDENTIFICATION: COMMENTS ON THE SCAN: The left common femoral artery was identified and under real-time ultrasound guidance was cannulated. IMPRESSION: Successful ultrasound guided arterial cannulation.
[2017-12-01 08:51] LABS: Basophils % (Manual) 0 % (0.0-1.8); Platelet Estimate Cons; RBC Morphology Normal; Total Cells Counted 100
[2017-12-01] MEDS: VANCOMYCIN/0.45 NS 1 GM/250 ML 1 GM/250 ML BAG IV SCH ×2 (08:56→20:15)
[2017-12-01] MEDS: EFFEXOR XR PO SCH (09:51)
[2017-12-01] MEDS: COREG PO SCH ×2 (09:53→21:17)
[2017-12-01] MEDS: OxyCONTIN PO SCH ×2 (09:54→21:17)
[2017-12-01] MEDS: PEPCID PO SCH ×2 (10:00→21:17)
[2017-12-01] MEDS: ASPIRIN PO SCH (10:00)
[2017-12-01] MEDS: PLAVIX PO SCH (10:00)
--- NOTE | 2017-12-01 11:17 | Progress Note ---
<DEAN COX - Last Filed: 12/01/17 14:39> Assessment and Plan Assessment: 1) Sepsis: Resolved. Etiology most likely right foot diabetic infection -CRP = 23.30 -blood cultures 11/23 negative -urine culture 11/24 negative 3) Diabetic foot ulcer right great toe with cellulitis, presumed osteomyelitis; r/o abscess -Right foot with erythema of the great toe extension to the dorsal surface of the foot with tenderness to palpation and mild swelling. -Foot X-Ray findings are consistent with osteomyelitis with destruction of the distal half of the 1st distal phalanx -S/p angioplasty 11/26 -CT RLE done 11/29 since couldn't tolerate MRI showed moderate stenosis of the right common iliac artery; complete occlusion at the origin of the right internal iliac artery; moderate narrowing at the origin of the left internal iliac artery; subcutaneous soft tissue gas near the great toe;fluid at a tiny amount of gas within the plantar fascia worrisome for infection. 3) Diabetes; uncontrolled 4) CAD 5) COPD 6) Acute [place] 7) hypertension; stable 8) seizures, stroke 9) PVD 10) Meth addict Plan: -continue zosyn and vanco day 9 -Per Alexi Kessler amputation of the right great toe tomorrow at 12:00. -pt cannot be sent home on IV abx and PICC due to active meth addiction. Consider oral antibiotics for home Thank you Dr. Batista for your consultation, will follow up with you. Dean Cox NP for Ana María Golden MD Infectious Diseases Specialist [facility] ([facility]) M [phone] O [phone] Subjective Date of service: 12/01/17 Principal diagnosis: cellulitis Interval history: Feels ok, no fever Microbiology: Blood cultures: 11/23 ngtd Urine cultures: 11/24 ngtd Current Antimicrobials: Zosyn 11/23 Vancomycin 11/23 Previous Antimicrobials: Objective - Exam Narrative Exam: General appearance: Alert in NAD, conversant Eyes: anicteric sclerae, moist conjunctivae; no lid-lag; PERRLA HENT: Atraumatic; oropharynx clear Neck: Trachea midline; supple, no thyromegaly or lymphadenopathy Lungs: CTAB CV: RRR S1 S2 Abdomen: firm and tense + RUQ tenderness; +hepatosplenomegaly Extremities: Right foot with erythema of the great toe extension to the dorsal surface of the foot with tenderness to palpation and dressing. Mild swelling. 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 Moving all extermities Lines: No CVL / PICC - Constitutional Vitals: Vital Signs Temp Pulse Resp BP Pulse Ox 98.2 F 88 20 129/66 95 12/01/17 07:53 12/01/17 07:53 12/01/17 07:53 12/01/17 07:53 12/01/17 07:53 Temperature -Last 24 Hours Temperature 98.2 F Temperature 97.8 F Temperature 98.2 F - Labs CBC & Chem 7: 12/01/17 06:40 12/01/17 06:40 Labs: Abnormal lab results 11/30/17 12/01/17 12/01/17 Range/Units 22:50 06:40 06:40 RBC 3.24 L (3.65-5.03) M/mm3 Hgb 10.1 L (11.8-15.2) gm/dl Hct 28.8 L (35.5-45.6) % MCHC 35 H (32-34) % Plt Count 443 H (140-440) K/mm3 Chloride 96.9 L (98-107) mmol/L Glucose 111 H (75-100) mg/dL POC Glucose 206 H (70-105) <ANA MARÍA GOLDEN - Last Filed: 12/01/17 16:19> Objective - Constitutional Vitals: Vital Signs Temp Pulse Resp BP Pulse Ox 97.5 F L 72 18 127/81 97 12/01/17 14:57 12/01/17 14:57 12/01/17 14:57 12/01/17 14:57 12/01/17 14:57 Temperature -Last 24 Hours Temperature 97.5 F Temperature 98.2 F Temperature 97.8 F - Labs CBC & Chem 7: 12/01/17 06:40 12/01/17 06:40 Labs: Abnormal lab results 11/30/17 12/01/17 12/01/17 Range/Units 22:50 06:40 06:40 RBC 3.24 L (3.65-5.03) M/mm3 Hgb 10.1 L (11.8-15.2) gm/dl Hct 28.8 L (35.5-45.6) % MCHC 35 H (32-34) % Plt Count 443 H (140-440) K/mm3 Chloride 96.9 L (98-107) mmol/L Glucose 111 H (75-100) mg/dL POC Glucose 206 H (70-105) 12/01/17 Range/Units 11:38 RBC (3.65-5.03) M/mm3 Hgb (11.8-15.2) gm/dl Hct (35.5-45.6) % MCHC (32-34) % Plt Count (140-440) K/mm3 Chloride (98-107) mmol/L Glucose (75-100) mg/dL POC Glucose 199 H (70-105)
--- NOTE | 2017-12-01 13:42 | Progress Note ---
Assessment and Plan - Patient Problems (1) Non-pressure ulcer of right lower extremity with fat layer exposed Current Visit: Yes Status: Acute Plan to address problem: 1) Ray amputation of the right great toe tomorrow at 12:00. 2) NPO after MN Subjective Date of service: 12/01/17 Patient Reports: Positive: no new complaints Objective Vital Signs - 12hr 12/01/17 07:53 Temperature 98.2 F Pulse Rate 88 Respiratory 20 Rate Blood Pressure 129/66 O2 Sat by Pulse 95 Oximetry - Musculoskeletal other (Right great toe has wet gangrent involving the distal 1/2 of the toe.) - Labs 12/01/17 06:40 12/01/17 06:40 Diabetes panel 12/01/17 Range/Units 06:40 Sodium 139 (137-145) mmol/L Potassium 4.2 (3.6-5.0) mmol/L Chloride 96.9 L (98-107) mmol/L Carbon Dioxide 29 (22-30) mmol/L BUN 10 (9-20) mg/dL Creatinine 0.8 (0.8-1.5) mg/dL Glucose 111 H (75-100) mg/dL Calcium 8.6 (8.4-10.2) mg/dL Calcium panel 12/01/17 Range/Units 06:40 Calcium 8.6 (8.4-10.2) mg/dL Pituitary panel 12/01/17 Range/Units 06:40 Sodium 139 (137-145) mmol/L Potassium 4.2 (3.6-5.0) mmol/L Chloride 96.9 L (98-107) mmol/L Carbon Dioxide 29 (22-30) mmol/L BUN 10 (9-20) mg/dL Creatinine 0.8 (0.8-1.5) mg/dL Glucose 111 H (75-100) mg/dL Calcium 8.6 (8.4-10.2) mg/dL Adrenal panel 12/01/17 Range/Units 06:40 Sodium 139 (137-145) mmol/L Potassium 4.2 (3.6-5.0) mmol/L Chloride 96.9 L (98-107) mmol/L Carbon Dioxide 29 (22-30) mmol/L BUN 10 (9-20) mg/dL Creatinine 0.8 (0.8-1.5) mg/dL Glucose 111 H (75-100) mg/dL Calcium 8.6 (8.4-10.2) mg/dL
--- NOTE | 2017-12-01 14:48 | Progress Note ---
Assessment and Plan //Sepsis Likely secondary to right foot Cellulitis and possible osteomylitis continue IV antibiotic therapy with vancomycin and zosyn therapy // Osteomylitis of right foot IV abx, IVF, supportive care x-ray showed Findings are consistent with osteomyelitis with destruction of the distal half of 1st distal phalanx. RLE ARTERIAL DUPLEX DONE showed MONOPHASIC WAVEFORMS OBTAINED THROUGHOUT RLE VESSELS FROM INFLOW TO OUTFLOW General and vascular surgeons and ID following s/p angioplasty of the rt superficial femoral artery, right anterior tibial artery and right dorsalis pedis artery on 11/26 Plan for amputaion on Tomorrow //UTI treated with antibiotics //CAD (coronary artery disease) Continue plavix, BB, Statin therapy, low cholesterol diet, //COPD (chronic obstructive pulmonary disease) supplemental oxygen, nebulizer therapy, NIPPV as clinically indicated. //Methamphetamine dependence Supportive care, Pt counseled on cessation. This precludes sending patient home with IV acceess // CDA with LHP cont plavis and statin // DVT prophylaxis SCDs Brief History: 62 YO Male with DM, Diabetic Neuropathy, HTN, HLD, CAD S/P Stent Placement, CVA with LHP, Methamphetamine Dependence presents to ED for evaluation of his right foot for the past 1 month. Hospitalist Physical - Physical exam Narrative exam: General appearance: Present: no acute distress, disheveled, malodorous - EENT Eyes: Present: PERRL, EOM intact ENT: hearing intact, clear oral mucosa - Neck Neck: Present: supple, normal ROM - Respiratory Respiratory effort: normal Respiratory: bilateral: CTA - Cardiovascular Rhythm: regular Heart Sounds: Present: S1 & S2 - Extremities Extremities:ischemia left large toe, No edema Extremity abnormal: other (leftfoot with wound dressing, bandaged) - Abdominal General gastrointestinal: soft, non-tender, non-distended - Integumentary Integumentary: Present: clear, warm, dry - Psychiatric Psychiatric: appropriate mood/affect, cooperative - Neurologic Neurologic: CNII-XII intact, moves all extremities - Allied Health Allied health notes reviewed: nursing Subjective Date of service: 12/01/17 Principal diagnosis: cellulitis Interval history: Patient seen and examined, in no acute distress. Planned for surgery Tomorrow no new complaints Objective - Constitutional Vitals: Vital Signs - 12hr 12/01/17 07:53 Temperature 98.2 F Pulse Rate 88 Respiratory 20 Rate Blood Pressure 129/66 O2 Sat by Pulse 95 Oximetry - Labs CBC & Chem 7: 12/02/17 05:22 12/02/17 08:39 Labs: Abnormal lab results 11/30/17 12/01/17 12/01/17 Range/Units 22:50 06:40 06:40 RBC 3.24 L (3.65-5.03) M/mm3 Hgb 10.1 L (11.8-15.2) gm/dl Hct 28.8 L (35.5-45.6) % MCHC 35 H (32-34) % Plt Count 443 H (140-440) K/mm3 Chloride 96.9 L (98-107) mmol/L Glucose 111 H (75-100) mg/dL POC Glucose 206 H (70-105) 12/01/17 Range/Units 11:38 RBC (3.65-5.03) M/mm3 Hgb (11.8-15.2) gm/dl Hct (35.5-45.6) % MCHC (32-34) % Plt Count (140-440) K/mm3 Chloride (98-107) mmol/L Glucose (75-100) mg/dL POC Glucose 199 H (70-105)
[2017-12-01] MEDS: THERAGRAN-M Tab PO SCH (19:55)
[2017-12-02] MEDS: ZOSYN/NS 4.5GM/100ML 4.5 GM/100 ML VIAL IV SCH ×3 (06:16→22:50)
[2017-12-02 06:58] LABS: INR 2.09 (0.87-1.13)
[2017-12-02 07:20] LABS: Hematocrit 34.3 % (35.5-45.6); Hemoglobin 11.4 gm/dl (11.8-15.2); Mean Corpuscular HGB Conc 33 % (32-34); Mean Corpuscular Hemoglobin 31 pg (28-32); Mean Corpuscular Volume 91 fl (84-94); Red Blood Count 3.75 M/mm3 (3.65-5.03); Red Cell Distribution Width 14.4 % (13.2-15.2)
[2017-12-02 07:22] LABS: Platelet Count 535 K/mm3 (140-440)
[2017-12-02] MEDS: NOVOLOG SUB-Q SCH ×2 (08:22→22:59)
[2017-12-02 08:58] LABS: Total Cells Counted 100
[2017-12-02 08:59] LABS: Platelet Estimate Cons; RBC Morphology Normal
[2017-12-02] MEDS: OxyCONTIN PO SCH ×2 (09:20→22:50)
[2017-12-02] MEDS: EFFEXOR XR PO SCH (09:20)
[2017-12-02] MEDS: THERAGRAN-M Tab PO SCH (09:20)
[2017-12-02] MEDS: ASPIRIN PO SCH (09:20)
[2017-12-02] MEDS: PEPCID PO SCH ×2 (09:20→23:57)
[2017-12-02] MEDS: PLAVIX PO SCH (09:21)
[2017-12-02] MEDS: COREG PO SCH ×2 (09:24→23:57)
[2017-12-02 09:31] LABS: BUN/Creatinine Ratio 11; Blood Urea Nitrogen 10 mg/dL (9-20); Calcium 9.4 mg/dL (8.4-10.2); Hemolysis Index 15
[2017-12-02] MEDS ORDERED: SODIUM BICARBONATE IV ONE ×2 (10:11→12:00)
[2017-12-02] MEDS ORDERED: D50W (25GM) Vial IV ONE (10:12)
[2017-12-02] MEDS ORDERED: CALCIUM GLUCONATE 2,000 MG in NACL 0.9% 100 ML IV ONE (10:16)
--- NOTE | 2017-12-02 11:53 | Progress Note ---
<DEAN COX - Last Filed: 12/02/17 15:48> Assessment and Plan Assessment: 1) Sepsis: Resolved. Etiology most likely right foot diabetic infection -CRP = 23.30 -blood cultures 11/23 negative -urine culture 11/24 negative 3) Diabetic foot ulcer right great toe with cellulitis, presumed osteomyelitis; r/o abscess -Right foot with erythema of the great toe extension to the dorsal surface of the foot with tenderness to palpation and mild swelling. -Foot X-Ray findings are consistent with osteomyelitis with destruction of the distal half of the 1st distal phalanx -S/p angioplasty 11/26 -CT RLE done 11/29 since couldn't tolerate MRI showed moderate stenosis of the right common iliac artery; complete occlusion at the origin of the right internal iliac artery; moderate narrowing at the origin of the left internal iliac artery; subcutaneous soft tissue gas near the great toe;fluid at a tiny amount of gas within the plantar fascia worrisome for infection. 3) Diabetes; uncontrolled 4) CAD 5) COPD 6) Acute [place] 7) hypertension; stable 8) seizures, stroke 9) PVD 10) Meth addict Plan: -continue zosyn day 10 -stop vanco day -Per Dr Bajwa, [facility] and will therefore reschedule for right great toe amputation on 12/06/17 -pt cannot be sent home on IV abx and PICC due to active meth addiction. Consider oral antibiotics for home Thank you Dr. Batista for your consultation, will follow up with you. Dean Cox NP for Ana María Golden MD Infectious Diseases Specialist [facility] ([facility]) M [phone] O [phone] Subjective Date of service: 12/02/17 Principal diagnosis: cellulitis Interval history: I have not had anything to eat or drink since midnight, no fever Microbiology: Blood cultures: 11/23 ngtd Urine cultures: 11/24 ngtd Current Antimicrobials: Zosyn 11/23 Previous Antimicrobials: Vancomycin 11/23 Objective - Exam Narrative Exam: General appearance: Alert in NAD, conversant Eyes: anicteric sclerae, moist conjunctivae; no lid-lag; PERRLA HENT: Atraumatic; oropharynx clear Neck: Trachea midline; supple, no thyromegaly or lymphadenopathy Lungs: CTAB CV: RRR S1 S2 Abdomen: firm and tense + RUQ tenderness; +hepatosplenomegaly Extremities: Right foot with erythema of the great toe extension to the dorsal surface of the foot with tenderness to palpation and dressing. Mild swelling. 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 Moving all extermities Lines: No CVL / PICC - Constitutional Vitals: Vital Signs Temp Pulse Resp BP Pulse Ox 97.7 F 63 20 123/51 97 12/02/17 08:09 12/02/17 08:09 12/02/17 09:29 12/02/17 09:24 12/02/17 08:09 Temperature -Last 24 Hours Temperature 97.7 F Temperature 99.4 F Temperature 97.5 F - Labs CBC & Chem 7: 12/02/17 05:22 12/02/17 10:15 Labs: Abnormal lab results 12/01/17 12/01/17 12/01/17 Range/Units 11:38 17:10 22:36 WBC (4.5-11.0) K/mm3 Hgb (11.8-15.2) gm/dl Hct (35.5-45.6) % Plt Count (140-440) K/mm3 PT (12.2-14.9) Sec. INR (0.87-1.13) Potassium (3.6-5.0) mmol/L Chloride (98-107) mmol/L Glucose (75-100) mg/dL POC Glucose 199 H 149 H 199 H (70-105) Vancomycin Trough (5.0-20.0) ug/mL 12/02/17 12/02/17 12/02/17 Range/Units 05:22 05:22 05:54 WBC 12.0 H (4.5-11.0) K/mm3 Hgb 11.4 L (11.8-15.2) gm/dl Hct 34.3 L (35.5-45.6) % Plt Count 535 H (140-440) K/mm3 PT 24.8 H (12.2-14.9) Sec. INR 2.09 H (0.87-1.13) Potassium (3.6-5.0) mmol/L Chloride (98-107) mmol/L Glucose (75-100) mg/dL POC Glucose (70-105) Vancomycin Trough 25.3 H (5.0-20.0) ug/mL 12/02/17 12/02/17 Range/Units 08:39 10:15 WBC (4.5-11.0) K/mm3 Hgb (11.8-15.2) gm/dl Hct (35.5-45.6) % Plt Count (140-440) K/mm3 PT (12.2-14.9) Sec. INR (0.87-1.13) Potassium 5.7 H D 5.1 H (3.6-5.0) mmol/L Chloride 96.2 L (98-107) mmol/L Glucose 108 H (75-100) mg/dL POC Glucose (70-105) Vancomycin Trough (5.0-20.0) ug/mL <ANA MARÍA GOLDEN - Last Filed: 12/02/17 16:30> Objective - Constitutional Vitals: Vital Signs Temp Pulse Resp BP Pulse Ox 97.7 F 63 20 123/51 97 12/02/17 08:09 12/02/17 08:09 12/02/17 09:29 12/02/17 09:24 12/02/17 08:09 Temperature -Last 24 Hours Temperature 97.7 F Temperature 99.4 F - Labs CBC & Chem 7: 12/02/17 05:22 12/02/17 10:15 Labs: Abnormal lab results 12/01/17 12/01/17 12/02/17 Range/Units 17:10 22:36 05:22 WBC (4.5-11.0) K/mm3 Hgb (11.8-15.2) gm/dl Hct (35.5-45.6) % Plt Count (140-440) K/mm3 PT (12.2-14.9) Sec. INR (0.87-1.13) Potassium (3.6-5.0) mmol/L Chloride (98-107) mmol/L Glucose (75-100) mg/dL POC Glucose 149 H 199 H (70-105) Vancomycin Trough 25.3 H (5.0-20.0) ug/mL 12/02/17 12/02/17 12/02/17 Range/Units 05:22 05:54 08:39 WBC 12.0 H (4.5-11.0) K/mm3 Hgb 11.4 L (11.8-15.2) gm/dl Hct 34.3 L (35.5-45.6) % Plt Count 535 H (140-440) K/mm3 PT 24.8 H (12.2-14.9) Sec. INR 2.09 H (0.87-1.13) Potassium 5.7 H D (3.6-5.0) mmol/L Chloride 96.2 L (98-107) mmol/L Glucose 108 H (75-100) mg/dL POC Glucose (70-105) Vancomycin Trough (5.0-20.0) ug/mL 12/02/17 Range/Units 10:15 WBC (4.5-11.0) K/mm3 Hgb (11.8-15.2) gm/dl Hct (35.5-45.6) % Plt Count (140-440) K/mm3 PT (12.2-14.9) Sec. INR (0.87-1.13) Potassium 5.1 H (3.6-5.0) mmol/L Chloride (98-107) mmol/L Glucose (75-100) mg/dL POC Glucose (70-105) Vancomycin Trough (5.0-20.0) ug/mL
--- NOTE | 2017-12-02 12:33 | Progress Note ---
Assessment and Plan - Patient Problems (1) Non-pressure ulcer of right lower extremity with fat layer exposed Current Visit: Yes Status: Acute Plan to address problem: 1) Hyperkalemia with K+ 5.7 this am. Therefore, surgery was cancelled. Repeat K+ now 5.1. 2) Gangrene/osteomyelitis - right great toe Plan: 1) I am going out of town tonight and will therefore reschedule for right great toe amputation on 12/06/17. If pt is dischargeable prior to that time, he can be discharged on oral antibiotics and we will schedule him for elective [facility]. Subjective Date of service: 12/02/17 Patient Reports: Positive: no new complaints Objective Vital Signs - 12hr 12/02/17 12/02/17 12/02/17 08:09 09:20 09:21 Temperature 97.7 F Pulse Rate 63 Respiratory 19 20 20 Rate Blood Pressure 123/51 O2 Sat by Pulse 97 Oximetry 12/02/17 12/02/17 09:24 09:29 Temperature Pulse Rate Respiratory 20 Rate Blood Pressure 123/51 O2 Sat by Pulse Oximetry - Integumentary other (No change in right great toe.) - Labs 12/02/17 05:22 12/02/17 10:15 Diabetes panel 12/02/17 12/02/17 Range/Units 08:39 10:15 Sodium 138 (137-145) mmol/L Potassium 5.7 H D 5.1 H (3.6-5.0) mmol/L Chloride 96.2 L (98-107) mmol/L Carbon Dioxide 28 (22-30) mmol/L BUN 10 (9-20) mg/dL Creatinine 0.9 (0.8-1.5) mg/dL Glucose 108 H (75-100) mg/dL Calcium 9.4 (8.4-10.2) mg/dL Calcium panel 12/02/17 Range/Units 08:39 Calcium 9.4 (8.4-10.2) mg/dL Pituitary panel 12/02/17 12/02/17 Range/Units 08:39 10:15 Sodium 138 (137-145) mmol/L Potassium 5.7 H D 5.1 H (3.6-5.0) mmol/L Chloride 96.2 L (98-107) mmol/L Carbon Dioxide 28 (22-30) mmol/L BUN 10 (9-20) mg/dL Creatinine 0.9 (0.8-1.5) mg/dL Glucose 108 H (75-100) mg/dL Calcium 9.4 (8.4-10.2) mg/dL Adrenal panel 12/02/17 12/02/17 Range/Units 08:39 10:15 Sodium 138 (137-145) mmol/L Potassium 5.7 H D 5.1 H (3.6-5.0) mmol/L Chloride 96.2 L (98-107) mmol/L Carbon Dioxide 28 (22-30) mmol/L BUN 10 (9-20) mg/dL Creatinine 0.9 (0.8-1.5) mg/dL Glucose 108 H (75-100) mg/dL Calcium 9.4 (8.4-10.2) mg/dL
--- NOTE | 2017-12-02 14:52 | Progress Note ---
Assessment and Plan // hyperkalemia will place on insul sodium bicarbonate, calcium gluconate - repeat level this afternoon //Sepsis Likely secondary to right foot Cellulitis and possible osteomylitis continue IV antibiotic therapy with vancomycin and zosyn therapy // Osteomylitis of right foot IV abx, IVF, supportive care x-ray showed Findings are consistent with osteomyelitis with destruction of the distal half of 1st distal phalanx. RLE ARTERIAL DUPLEX DONE showed MONOPHASIC WAVEFORMS OBTAINED THROUGHOUT RLE VESSELS FROM INFLOW TO OUTFLOW General and vascular surgeons and ID following s/p angioplasty of the rt superficial femoral artery, right anterior tibial artery and right dorsalis pedis artery on 11/26 Plan for amputaion postponded to next week Wednesday //UTI treated with antibiotics //CAD (coronary artery disease) Continue plavix, BB, Statin therapy, low cholesterol diet, //COPD (chronic obstructive pulmonary disease) supplemental oxygen, nebulizer therapy, NIPPV as clinically indicated. //Methamphetamine dependence Supportive care, Pt counseled on cessation. This precludes sending patient home with IV acceess // CDA with LHP cont plavis and statin // DVT prophylaxis SCDs Brief History: 62 YO Male with DM, Diabetic Neuropathy, HTN, HLD, CAD S/P Stent Placement, CVA with LHP, Methamphetamine Dependence presents to ED for evaluation of his right foot for the past 1 month. Hospitalist Physical - Physical exam Narrative exam: General appearance: Present: no acute distress, disheveled, malodorous - EENT Eyes: Present: PERRL, EOM intact ENT: hearing intact, clear oral mucosa - Neck Neck: Present: supple, normal ROM - Respiratory Respiratory effort: normal Respiratory: bilateral: CTA - Cardiovascular Rhythm: regular Heart Sounds: Present: S1 & S2 - Extremities Extremities:ischemia left large toe, No edema Extremity abnormal: other (leftfoot with wound dressing, bandaged) - Abdominal General gastrointestinal: soft, non-tender, non-distended - Integumentary Integumentary: Present: clear, warm, dry - Psychiatric Psychiatric: appropriate mood/affect, cooperative - Neurologic Neurologic: CNII-XII intact, moves all extremities - Allied Health Allied health notes reviewed: nursing Subjective Date of service: 12/02/17 Principal diagnosis: cellulitis Interval history: Patient seen and examined, in no acute distress. Planned for surgery Today but got cancelled as his k was 5.7 this am no new complaints Objective - Constitutional Vitals: Vital Signs - 12hr 12/02/17 12/02/17 12/02/17 08:09 09:20 09:21 Temperature 97.7 F Pulse Rate 63 Respiratory 19 20 20 Rate Blood Pressure 123/51 O2 Sat by Pulse 97 Oximetry 12/02/17 12/02/17 09:24 09:29 Temperature Pulse Rate Respiratory 20 Rate Blood Pressure 123/51 O2 Sat by Pulse Oximetry - Labs CBC & Chem 7: 12/03/17 06:44 12/03/17 06:44 Labs: Abnormal lab results 12/01/17 12/01/17 12/02/17 Range/Units 17:10 22:36 05:22 WBC (4.5-11.0) K/mm3 Hgb (11.8-15.2) gm/dl Hct (35.5-45.6) % Plt Count (140-440) K/mm3 PT (12.2-14.9) Sec. INR (0.87-1.13) Potassium (3.6-5.0) mmol/L Chloride (98-107) mmol/L Glucose (75-100) mg/dL POC Glucose 149 H 199 H (70-105) Vancomycin Trough 25.3 H (5.0-20.0) ug/mL 12/02/17 12/02/17 12/02/17 Range/Units 05:22 05:54 08:39 WBC 12.0 H (4.5-11.0) K/mm3 Hgb 11.4 L (11.8-15.2) gm/dl Hct 34.3 L (35.5-45.6) % Plt Count 535 H (140-440) K/mm3 PT 24.8 H (12.2-14.9) Sec. INR 2.09 H (0.87-1.13) Potassium 5.7 H D (3.6-5.0) mmol/L Chloride 96.2 L (98-107) mmol/L Glucose 108 H (75-100) mg/dL POC Glucose (70-105) Vancomycin Trough (5.0-20.0) ug/mL 12/02/17 Range/Units 10:15 WBC (4.5-11.0) K/mm3 Hgb (11.8-15.2) gm/dl Hct (35.5-45.6) % Plt Count (140-440) K/mm3 PT (12.2-14.9) Sec. INR (0.87-1.13) Potassium 5.1 H (3.6-5.0) mmol/L Chloride (98-107) mmol/L Glucose (75-100) mg/dL POC Glucose (70-105) Vancomycin Trough (5.0-20.0) ug/mL
[2017-12-03] MEDS: ZOSYN/NS 4.5GM/100ML 4.5 GM/100 ML VIAL IV SCH (05:13)
[2017-12-03 07:20] LABS: Basophils % (Auto) 0.4 % (0.0-1.8); Eosinophils # (Auto) 0.4 K/mm3 (0.0-0.4); Eosinophils % (Auto) 3.4 % (0.0-4.3); Hemoglobin 12.3 gm/dl (11.8-15.2); Lymphocytes # (Auto) 2.5 K/mm3 (1.2-5.4); Lymphocytes % (Auto) 24.7 % (13.4-35.0); Mean Corpuscular HGB Conc 34 % (32-34); Mean Corpuscular Hemoglobin 31 pg (28-32); Mean Corpuscular Volume 89 fl (84-94); Monocytes # (Auto) 0.7 K/mm3 (0.0-0.8); Monocytes % (Auto) 6.5 % (0.0-7.3); Platelet Count 581 K/mm3 (140-440); Red Blood Count 4.03 M/mm3 (3.65-5.03); Red Cell Distribution Width 14.3 % (13.2-15.2)
[2017-12-03] MEDS: NOVOLOG SUB-Q SCH ×3 (07:30→12:31)
[2017-12-03 07:42] LABS: BUN/Creatinine Ratio 14; Blood Urea Nitrogen 14 mg/dL (9-20); Calcium 9.4 mg/dL (8.4-10.2); Hemolysis Index 0
[2017-12-03 08:28] VITALS: BP 121/63
[2017-12-03] MEDS: OxyCONTIN PO SCH (09:52)
[2017-12-03] MEDS: ASPIRIN PO SCH (09:52)
[2017-12-03] MEDS: PLAVIX PO SCH (09:53)
[2017-12-03] MEDS: THERAGRAN-M Tab PO SCH (09:53)
[2017-12-03] MEDS: PEPCID PO SCH (09:53)
[2017-12-03] MEDS: EFFEXOR XR PO SCH (09:54)
[2017-12-03] MEDS: COREG PO SCH (09:55)
--- NOTE | 2017-12-03 13:26 | Progress Note ---
<DEAN COX - Last Filed: 12/03/17 15:31> Assessment and Plan Assessment: 1) Sepsis: Resolved. Etiology most likely right foot diabetic infection -CRP = 23.30 -blood cultures 11/23 negative -urine culture 11/24 negative 3) Diabetic foot ulcer right great toe with cellulitis, presumed osteomyelitis; r/o abscess -Right foot with erythema of the great toe extension to the dorsal surface of the foot with tenderness to palpation and mild swelling. -Foot X-Ray findings are consistent with osteomyelitis with destruction of the distal half of the 1st distal phalanx -S/p angioplasty 11/26 -CT RLE done 11/29 since couldn't tolerate MRI showed moderate stenosis of the right common iliac artery; complete occlusion at the origin of the right internal iliac artery; moderate narrowing at the origin of the left internal iliac artery; subcutaneous soft tissue gas near the great toe;fluid at a tiny amount of gas within the plantar fascia worrisome for infection. 3) Diabetes; uncontrolled 4) CAD 5) COPD 6) Acute [place] 7) hypertension; stable 8) seizures, stroke 9) PVD 10) Meth addict Plan: -continue zosyn day 11 -Per Dr Bajwa, he is going out of town [facility] and will therefore reschedule for right great toe amputation on 12/06/17 -pt cannot be sent home on IV abx and PICC due to active meth addiction. Consider oral antibiotics for home Thank you Dr. Batista for your consultation, will follow up with you. Dean Cox NP for Ana María Golden MD Infectious Diseases Specialist [facility] ([facility]) M [phone] O [phone] Subjective Date of service: 12/03/17 Principal diagnosis: cellulitis Interval history: I don't want to stay here until Wednesday, waiting on my daughter to pick me up so I can go home, no fever Microbiology: Blood cultures: 11/23 ngtd Urine cultures: 11/24 ngtd Current Antimicrobials: Zosyn 11/23 Previous Antimicrobials: Vancomycin 11/23 Objective - Exam Narrative Exam: General appearance: Alert in NAD, conversant Eyes: anicteric sclerae, moist conjunctivae; no lid-lag; PERRLA HENT: Atraumatic; oropharynx clear Neck: Trachea midline; supple, no thyromegaly or lymphadenopathy Lungs: CTAB CV: RRR S1 S2 Abdomen: firm and tense + RUQ tenderness; +hepatosplenomegaly Extremities: Right foot with erythema of the great toe extension to the dorsal surface of the foot with tenderness to palpation and dressing. Mild swelling. 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 Moving all extermities Lines: No CVL / PICC - Constitutional Vitals: Vital Signs Temp Pulse Resp BP Pulse Ox 97.7 F 128 H 22 121/63 91 12/03/17 07:51 12/03/17 09:55 12/03/17 10:36 12/03/17 09:55 12/03/17 07:51 Temperature -Last 24 Hours Temperature 97.7 F Temperature 97.5 F Temperature 97.5 F - Labs CBC & Chem 7: 12/03/17 06:44 12/03/17 06:44 Labs: Abnormal lab results 12/02/17 12/03/17 12/03/17 Range/Units 22:27 06:44 06:44 Plt Count 581 H (140-440) K/mm3 Chloride 95.7 L (98-107) mmol/L Glucose 106 H (75-100) mg/dL POC Glucose 250 H (70-105) 12/03/17 Range/Units 07:36 Plt Count (140-440) K/mm3 Chloride (98-107) mmol/L Glucose (75-100) mg/dL POC Glucose 109 H (70-105) <ANA MARÍA GOLDEN - Last Filed: 12/03/17 17:04> Objective - Constitutional Vitals: Vital Signs Temp Pulse Resp BP Pulse Ox 97.7 F 128 H 22 121/63 91 12/03/17 07:51 12/03/17 09:55 12/03/17 10:36 12/03/17 09:55 12/03/17 07:51 Temperature -Last 24 Hours Temperature 97.7 F Temperature 97.5 F - Labs CBC & Chem 7: 12/03/17 06:44 12/03/17 06:44 Labs: Abnormal lab results 12/02/17 12/03/17 12/03/17 Range/Units 22:27 06:44 06:44 Plt Count 581 H (140-440) K/mm3 Chloride 95.7 L (98-107) mmol/L Glucose 106 H (75-100) mg/dL POC Glucose 250 H (70-105) 12/03/17 Range/Units 07:36 Plt Count (140-440) K/mm3 Chloride (98-107) mmol/L Glucose (75-100) mg/dL POC Glucose 109 H (70-105)
--- NOTE | 2017-12-03 15:49 | Discharge Summary ---
Providers - Providers Date of Admission: 11/23/17 17:56 Date of discharge: 12/03/17 Attending physician: CUATE FERNÁNDEZ 11/24/17 11:33 Consult to Physician [CONS] Routine Consulting Provider: RASHAD SAWYER Reason For Exam: Cellulitis Place consult to:: Dr. Castellon Notified:: Yes Phone number called:: [phone] Was contact made?: Yes If yes, spoke with:: Dr. Castellon Time called:: 11:35 Comment:: Voice message left 11/24/17 12:45 Consult to Wound/ET Nurse [CONS] Routine Reason For Exam: wound eval 11/25/17 15:11 Consult to Physician [CONS] Routine Consulting Provider: DINORAH HAYNES Reason For Exam: Non-pressure ulcer/ monophasic flow RLE Place consult to:: ELIZABETH Notified:: LUIS Franz (SURG) Phone number called:: IN HOUSE Was contact made?: Yes If yes, spoke with:: LUIS Sharif called:: 15:27 Primary care physician: TYPIST Hospitalization Condition: Stable Hospital course: Brief History: 62 YO Male with DM, Diabetic Neuropathy, HTN, HLD, CAD S/P Stent Placement, CVA with LHP, Methamphetamine Dependence presents to ED for evaluation of his right foot for the past 1 month. Discharge diagnosis and management: // hyperkalemia s/p insulin, sodium bicarbonate, calcium gluconate - rosolved //Sepsis Likely secondary to right foot Cellulitis and possible osteomylitis continued on IV antibiotic therapy with vancomycin and zosyn therapy // Osteomylitis of right foot IV abx, IVF, supportive care x-ray showed Findings are consistent with osteomyelitis with destruction of the distal half of 1st distal phalanx. RLE ARTERIAL DUPLEX DONE showed MONOPHASIC WAVEFORMS OBTAINED THROUGHOUT RLE VESSELS FROM INFLOW TO OUTFLOW General and vascular surgeons and ID following s/p angioplasty of the rt superficial femoral artery, right anterior tibial artery and right dorsalis pedis artery on 11/26 Plan for amputaion postponded to next week Wednesday //UTI treated with antibiotics //CAD (coronary artery disease) Continue plavix, BB, Statin therapy, low cholesterol diet, //COPD (chronic obstructive pulmonary disease) supplemental oxygen, nebulizer therapy, NIPPV as clinically indicated. //Methamphetamine dependence Supportive care, Pt counseled on cessation. This precludes sending patient home with IV acceess // CDA with LHP cont plavis and statin // DVT prophylaxis SCDs Hospitalist Physical - Physical exam Narrative exam: General appearance: Present: no acute distress, disheveled, malodorous - EENT Eyes: Present: PERRL, EOM intact ENT: hearing intact, clear oral mucosa - Neck Neck: Present: supple, normal ROM - Respiratory Respiratory effort: normal Respiratory: bilateral: CTA - Cardiovascular Rhythm: regular Heart Sounds: Present: S1 & S2 - Extremities Extremities:ischemia left large toe, No edema Extremity abnormal: other (leftfoot with wound dressing, bandaged) - Abdominal General gastrointestinal: soft, non-tender, non-distended - Integumentary Integumentary: Present: clear, warm, dry - Psychiatric Psychiatric: appropriate mood/affect, cooperative - Neurologic Neurologic: CNII-XII intact, moves all extremities - Allied Health Allied health notes reviewed: nursing Disposition: DC-07 LEFT AGAINST MED ADVICE Time spent for discharge: 32 minutes Core Measure Documentation - Palliative Care Palliative Care/ Comfort Measures: Not Applicable - Core Measures Any of the following diagnoses?: history only Exam - Constitutional Vitals: Temp Pulse Resp BP Pulse Ox 97.7 F 128 H 22 121/63 91 12/03/17 07:51 12/03/17 09:55 12/03/17 10:36 12/03/17 09:55 12/03/17 07:51 Plan Follow up with: SANAM ALFRED MD [Primary Care Provider] - 7 Days
== END 2017-12-03 14:30 | disposition left against medical advice (07) | DRG 853 ==
LOC: ED 14:05 → EDBD 17:56 → 3A 17:56
PROVIDERS: ADMIT Internal Medicine; ATTEND Internal Medicine
PROC: 047K3D1 Dilation of Right Femoral Artery with Intraluminal Device, using Drug-Coated Balloon, Percutaneous Approach (ICD-10-PCS; principal; 2017-11-26)
PROC: 047R3Z1 Dilation of Right Posterior Tibial Artery using Drug-Coated Balloon, Percutaneous Approach (ICD-10-PCS; 2017-11-26)
PROC: 047P3Z1 Dilation of Right Anterior Tibial Artery using Drug-Coated Balloon, Percutaneous Approach (ICD-10-PCS; 2017-11-26)
PROC: 04CK3ZZ Extirpation of Matter from Right Femoral Artery, Percutaneous Approach (ICD-10-PCS; 2017-11-26)
PROC: 047M3Z1 Dilation of Right Popliteal Artery using Drug-Coated Balloon, Percutaneous Approach (ICD-10-PCS; 2017-11-26)
PROC: B44LZZZ Ultrasonography of Femoral Artery (ICD-10-PCS; 2017-11-26)
PROC: B4101ZZ Fluoroscopy of Abdominal Aorta using Low Osmolar Contrast (ICD-10-PCS; 2017-11-26)
PROC: B41D1ZZ Fluoroscopy of Aorta and Bilateral Lower Extremity Arteries using Low Osmolar Contrast (ICD-10-PCS; 2017-11-26)
DX: A41.9 Sepsis, unspecified organism (principal); I21.9 Acute myocardial infarction, unspecified; L03.115 Cellulitis of right lower limb; F15.20 Other stimulant dependence, uncomplicated; I69.354 Hemiplegia and hemiparesis following cerebral infarction affecting left non-dominant side; N39.0 Urinary tract infection, site not specified; L97.912 Non-pressure chronic ulcer of unspecified part of right lower leg with fat layer exposed; M86.8X7 Other osteomyelitis, ankle and foot; E11.52 Type 2 diabetes mellitus with diabetic peripheral angiopathy with gangrene; I96 Gangrene, not elsewhere classified; E11.40 Type 2 diabetes mellitus with diabetic neuropathy, unspecified; I10 Essential (primary) hypertension; E78.5 Hyperlipidemia, unspecified; I25.10 Atherosclerotic heart disease of native coronary artery without angina pectoris; I25.2 Old myocardial infarction; J44.9 Chronic obstructive pulmonary disease, unspecified; E11.65 Type 2 diabetes mellitus with hyperglycemia; E11.622 Type 2 diabetes mellitus with other skin ulcer; Z99.81 Dependence on supplemental oxygen; Z53.21 Procedure and treatment not carried out due to patient leaving prior to being seen by health care provider; E11.69 Type 2 diabetes mellitus with other specified complication; E87.5 Hyperkalemia; Z95.5 Presence of coronary angioplasty implant and graft; Z83.3 Family history of diabetes mellitus; Z82.49 Family history of ischemic heart disease and other diseases of the circulatory system; Z79.82 Long term (current) use of aspirin; Z79.4 Long term (current) use of insulin; Z79.899 Other long term (current) drug therapy
CPT/HCPCS: 36415; 37225; 37228; 37232; 75716; 76937; 80048; 80202; 80307; 81001; 82140; 82962; 83036; 84132; 85007; 85025; 85027; 85610; 85652; 86140; 87040; 87086; 94640; 96361; 96374; 96375; C1724; C1725; C1760; C1769; C1887; J0610; J0690; J1644; J1815; J1885; J2250; J2543; J3010; J3370; J7030; J7040; Q9967